=== PATIENT | male | born 1940 | race Caucasian/White ===

== ENCOUNTER 2017-01-16 11:34 | Outpatient (CLI) ==
[2016-09-04 16:41] VITALS: BMI 32.3
--- NOTE | 2017-01-16 12:43 | DI ---
EXAM: Three views of the left ankle. History: Left ankle pain. Findings / impression: No acute fracture or dislocation. Diffuse subcutaneous edema. Mild polyart icular joint space narrowing.
--- NOTE | 2017-01-16 12:53 | DI ---
EXAM: Lumbar spine five views HISTORY: Back pain COMPARISON: None TECHNIQUE: Five views lumbar spine were performed including oblique views FINDINGS: Sacroiliac joints intact. Sacral arcuate lines intact. Vertebral bodies normal in heigh t. No fracture. No subluxation. Multilevel bulky marginal osteophyte formation. Multilevel inter vertebral disc space narrowing with moderate to severe intervertebral disc space narrowing L4-L5 and moderate intervertebral disc space narrowing L5-S1. Multilevel facet arthrosis appears advanced in the lower spine. Atherosclerotic vascular calcification. 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
== END 2017-01-16 11:35 | disposition home or self-care (01) ==
LOC: RAD 11:34
PROVIDERS: ATTEND Internal Medicine
DX: M25.572 Pain in left ankle and joints of left foot (principal); M54.9 Dorsalgia, unspecified

== ENCOUNTER 2017-03-15 10:11 | Inpatient (IN) | payer OTHER ==
[2017-03-15] MEDS ORDERED: MORPHINE 4 MG/ML SYRINGE IVP PRN (10:32)
[2017-03-15] MEDS ORDERED: ATROPINE SULFATE PFS IVP PRN (10:32)
[2017-03-15] MEDS ORDERED: VISTARIL INJ IM PRN (10:32)
[2017-03-15] MEDS ORDERED: TYLENOL PO PRN (10:32)
[2017-03-15] MEDS ORDERED: NITROSTAT SL PRN (10:32)
[2017-03-15 10:38] LABS: ABG BASE EXCESS -8 (-2.0-2.0); ABG HCO3 17.5 (22.0-26.0); ABG PCO2 30.1 mmHg (35-45); ABG PH 7.372 (7.35-7.45); ABG TCO2 18 (22.0-28.0)
[2017-03-15] MEDS ORDERED: DUONEB NEB STA (10:38)
[2017-03-15] MEDS ORDERED: DUONEB NEB ONE (10:42)
[2017-03-15] MEDS: SOLU-MEDROL 125 MG IVP SCH ×2 (11:00→21:26)
[2017-03-15 11:04] VITALS: BMI 31.2
[2017-03-15 11:09] LABS: BASOPHILS % (AUTO) 0.3 % (0.0-3.0); HEMATOCRIT 50.8 % (42.0-52.0); HEMOGLOBIN 17.5 g/dl (14.0-18.0); IMMATURE GRANULOCYTE % (AUTO) 0.4 % (0.0-5.0); LYMPHOCYTES # (AUTO) 1.2 K/uL (0.60-3.4); LYMPHOCYTES % (AUTO) 13.1 (10.0-50.0); MEAN CORPUSCULAR HEMOGLOBIN 30.7 pg (27.0-31.0); MEAN CORPUSCULAR HGB CONC 34.4 (31.8-35.4); MEAN CORPUSCULAR VOLUME 89.1 fl (80.0-94.0); MONOCYTES # (AUTO) 0.5 K/uL (0.4-2.0); MONOCYTES % (AUTO) 5.8 (0-10); NEUTROPHILS # (AUTO) 7.4 K/ul (2.0-6.9); NEUTROPHILS % (AUTO) 80.4; PLATELET COUNT 90 10^3/uL (140-440); WHITE BLOOD COUNT 9.26 K/ul (4.2-10.2)
[2017-03-15] MEDS: SODIUM CHLORIDE 1,000 ML IV SCH (11:11)
[2017-03-15] MEDS: ROCEPHIN 1 GM in SODIUM CHLORIDE 50 ML IV SCH (11:12)
[2017-03-15] MEDS ORDERED: DUONEB NEB SCH (12:00)
[2017-03-15 12:05] LABS: ALBUMIN 3.3 g/dL (3.4-5.0); ALBUMIN/GLOBULIN RATIO 0.77; BILIRUBIN,TOTAL 0.76 mg/dL (0.00-1.20); BUN/CREATININE RATIO 28.7; CALCIUM 9.1 mg/dL (8.2-10.2); CREATININE 2.16 mg/dL (0.60-1.10); TOTAL PROTEIN 7.6 g/dL (5.8-8.1); TROPONIN I 0.099 ng/ml (0.0000-0.4000)
[2017-03-15 12:11] LABS: CREATINE KINASE MB 7.1 ng/ml (0.0-3.6)
--- NOTE | 2017-03-15 13:19 | DI ---
Exam: Chest one-view HISTORY: Short of breath. Comparison: 09/05/2016. FINDINGS: Portable image of the chest demonstrates mildly hyper expanded lungs with no evidence of pneumonia or edema. The heart and mediastinum appear within normal limits. The skeletal structures appear intact. IMPRESSION: No acute cardiopulmonary disease.
[2017-03-15] MEDS ORDERED: COREG ONE (14:13)
[2017-03-15] MEDS: DUONEB NEB SCH ×2 (14:16→20:24)
[2017-03-15] MEDS: COREG PO SCH ×2 (14:51→18:39)
[2017-03-15] MEDS: MEVACOR PO SCH (18:37)
[2017-03-15 19:34] LABS: TROPONIN I 0.055 ng/ml (0.0000-0.4000)
[2017-03-15 19:38] LABS: CREATINE KINASE MB 6.3 ng/ml (0.0-3.6)
[2017-03-16 03:43] LABS: ADD URINE MICROSCOPIC YES; BILIRUBIN,URINE Negative (NEGATIVE); KETONES,URINE Negative (NEGATIVE); LEUKOCYTE ESTERASE ,URINE Negative (NEGATIVE); NITRITE,URINE Negative (NEGATIVE); PH,URINE 5.5 (5-9); PROTEIN,URINE 3+ (NEGATIVE); URINE, BLOOD 3+ (NEGATIVE)
[2017-03-16] MEDS: DUONEB NEB SCH ×4 (05:08→20:34)
[2017-03-16 05:18] LABS: ALBUMIN 2.7 g/dL (3.4-5.0); ALBUMIN/GLOBULIN RATIO 0.68; ANION GAP 17.6; BILIRUBIN,TOTAL 0.52 mg/dL (0.00-1.20); CALCIUM 8.4 mg/dL (8.2-10.2); CREATININE 1.52 mg/dL (0.60-1.10); POTASSIUM 4.6 mmol/L (3.5-5.1); TOTAL PROTEIN 6.7 g/dL (5.8-8.1)
[2017-03-16 05:19] LABS: BUN/CREATININE RATIO 38.81
[2017-03-16 05:52] LABS: BASOPHILS % (AUTO) 0.2 % (0.0-3.0); HEMATOCRIT 45.9 % (42.0-52.0); HEMOGLOBIN 15.9 g/dl (14.0-18.0); IMMATURE GRANULOCYTE % (AUTO) 0.8 % (0.0-5.0); LYMPHOCYTES # (AUTO) 0.7 K/uL (0.60-3.4); LYMPHOCYTES % (AUTO) 13.8 (10.0-50.0); MEAN CORPUSCULAR HEMOGLOBIN 30.8 pg (27.0-31.0); MEAN CORPUSCULAR HGB CONC 34.6 (31.8-35.4); MONOCYTES # (AUTO) 0.1 K/uL (0.4-2.0); MONOCYTES % (AUTO) 2.7 (0-10); NEUTROPHILS # (AUTO) 3.9 K/ul (2.0-6.9); NEUTROPHILS % (AUTO) 82.5; RED BLOOD COUNT 5.16 10^6/ul (4.70-6.10); WHITE BLOOD COUNT 4.78 K/ul (4.2-10.2)
[2017-03-16 06:12] LABS: PLATELET COUNT 55 10^3/uL (140-440)
[2017-03-16] MEDS: SODIUM CHLORIDE 1,000 ML IV SCH (06:14)
[2017-03-16] MEDS: COREG PO SCH ×2 (08:00→16:52)
[2017-03-16] MEDS: ASPIRIN EC PO SCH (08:00)
[2017-03-16] MEDS: ROCEPHIN 1 GM in SODIUM CHLORIDE 50 ML IV SCH (08:03)
[2017-03-16] MEDS: SOLU-MEDROL 125 MG IVP SCH ×2 (08:27→21:18)
--- NOTE | 2017-03-16 09:53 | PCM.PROG ---
Attending Provider: ATTENDING PROVIDER: Dr. PERLA URIBE DATE OF SERVICE: 03/16/17 SUBJECTIVE: This 76 year old WHITE/ M was hospitalized 03/15/17. respiratory distress, COPD exacerbation. Chest x-ray is negative. The patient was found to have acute on chronic renal failure and dehydration. On further questioning the patient hasn't been taking medication for couple of months; says he can't afford it. REVIEW OF SYSTEMS: CONSTITUTIONAL: No night sweats. No fatigue, malaise, lethargy. No fever or chills. HEENT: Eyes: No visual changes. No eye pain. No eye discharge. ENT: No runny nose. No epistaxis. No sinus pain. No odynophagia. No congestion. RESPIRATORY: No cough, no congestion. No hemoptysis. CARDIOVASCULAR: No angina symptoms. No CHF symptoms. No atypical chest pain for CAD. No palpitations. No shortness of breath. Breathing is better and less short of breath. GASTROINTESTINAL: No abdominal pain. No nausea or vomiting. No diarrhea or constipation. No hematemesis. No hematochezia. GENITOURINARY: No urgency. No frequency. No dysuria. No hematuria. No obstructive symptoms. No discharge. No pain. No significant abnormal bleeding. MUSCULOSKELETAL: No musculoskeletal pain; no joint swelling. NEUROLOGICAL: Awake, alert, oriented to time, place and person. No headache. No neck pain. No syncope. No seizures. No dizziness. PSYCHIATRIC: Not anxious. No depression. No suicidal thoughts. No homicidal thoughts. SKIN: No rash. No lesions. ENDOCRINE: No unexplained weight loss. No weight gain. HEMATOLOGIC/LYMPHATIC: No anemia. No purpura. No petechiae. No prolonged or excessive bleeding. No palpable lymph nodes. PHYSICAL EXAMINATION: GENERAL: The patient is awake, alert and oriented to time, place and person, sitting in bed in no distress. VITAL SIGNS: Temperature 97.5 F, Pulse 64, Respiratory Rate 18, BP 118/62, Pulse Ox 93% HEENT: Head normocephalic, atraumatic. Eyes: Extraocular muscles are intact. Pupils are equal, round and reactive to light and accommodation. Ears: No lesions. Nose appeared normal. Throat: No exudate or erythema. NECK: Supple. No JVD, no carotid bruit. No lymphadenopathy or thyromegaly. LUNGS: Decreased but clear to auscultation. Percussion note normal. Chest symmetrical. HEART: S1, S2, no S3. No murmurs. No cyanosis or clubbing. No ascites. Pulses: Dorsalis pedis and posterior tibial pulses +1 to +2 both sides. ABDOMEN: Soft. Non-tender. Bowel sounds active. No CVA tenderness. No mass felt. EXTREMITIES: Both lower braxton area has some superficial cellulitis from chronic dermatitis. Ulcer on right lower braxton red and healing. Full range of motion of all extremities, equal. NEUROLOGIC: No focal deficit. Cranial nerves II through XII are grossly intact. No headache, no double vision or headache. SKIN: Not dry. Intact. Turgor-normal. LYMPHATIC: No palpable lymph nodes/no lymphedema. MUSCULOSKELETAL: Normal joints with no swelling. Muscle tone is normal. LAB REVIEW: 03/16/17 04:35 03/16/17 04:35 03/16/17 04:35: WBC 4.78, RBC 5.16, Hgb 15.9, Hct 45.9, MCV 89.0, MCH 30.8, MCHC 34.6, RDW Coeff of Bill 13.4, Plt Count 55 L D, Immature Gran % (Auto) 0.8, Neut % (Auto) 82.5, Lymph % (Auto) 13.8, King % (Auto) 2.7, Eos % (Auto) 0.0, Baso % (Auto) 0.2, Immature Gran # (Auto) 0.0, Neut # 3.9, Lymph # 0.7, King # 0.1 L, Eos # 0.0, Baso # 0.0, Sodium 136, Potassium 4.6, Chloride 105, Carbon Dioxide 18 L, Anion Gap 17.6, BUN 59 H, Creatinine 1.52 H D, Estimated GFR (MDRD ) 45.00, BUN/Creatinine Ratio 38.81, Glucose 169 H, Calcium 8.4, Total Bilirubin 0.52, AST 80 H, ALT 42, Alkaline Phosphatase 68, Total Protein 6.7, Albumin 2.7 L, Globulin 4.0, Albumin/Globulin Ratio 0.68 03/15/17 18:40: Total Creatine Kinase 994, CK-MB (CK-2) 6.3 H*, CK-MB (CK-2) % 0.85464, Myoglobin 574, Troponin I 0.0550 03/15/17 10:58: WBC 9.26, RBC 5.70, Hgb 17.5, Hct 50.8, MCV 89.1, MCH 30.7, MCHC 34.4, RDW Coeff of Bill 13.6, Plt Count 90 L, Immature Gran % (Auto) 0.4, Neut % (Auto) 80.4, Lymph % (Auto) 13.1, King % (Auto) 5.8, Eos % (Auto) 0.0, Baso % (Auto) 0.3, Immature Gran # (Auto) 0.0, Neut # 7.4 H, Lymph # 1.2, King # 0.5, Eos # 0.0, Baso # 0.0, Lactic Acid 21.3 H, B-Natriuretic Peptide 29 03/15/17 10:55: Sodium 137, Potassium 4.0, Chloride 99, Carbon Dioxide 23, Anion Gap 19.0, BUN 62 H*, Creatinine 2.16 H, Estimated GFR (MDRD) 30.00, BUN/ Creatinine Ratio 28.70, Glucose 124 H, Calcium 9.1, Total Bilirubin 0.76, AST 102 H, ALT 49, Alkaline Phosphatase 80, Total Creatine Kinase 1302, CK-MB (CK-2 ) 7.1 H*, CK-MB (CK-2) % 0.97799, Myoglobin 723, Troponin I 0.0990, Total Protein 7.6, Albumin 3.3 L, Globulin 4.3, Albumin/Globulin Ratio 0.77, Procalcitonin 4.33 03/15/17 10:35: Puncture Site R rad, O2 Saturation 93.0 L, ABG pH 7.372, ABG pCO2 30.1 L, ABG pO2 66.0 L, ABG HCO3 17.5 L, ABG Total CO2 18 L, ABG Base Excess -8 L, Javi Test +, FiO2 % 21.0 03/15/17 02:30: Urine Color Yellow, Urine Clarity Clear, Urine pH 5.5, Ur Specific [place] >=1.030, Urine Protein 3+, Urine Glucose (UA) Negative, Urine Ketones Negative, Urine Blood 3+, Urine Nitrite Negative, Urine Bilirubin Negative, Urine Urobilinogen 0.2, Ur Leukocyte Esterase Negative, Urine Microscopic RBC 5-10, Ur Squamous Epith Cells Not present, Hyaline Casts 0-2, Urine Mucus 2+ ASSESSMENT: 1. COPD exacerbation secondary to bronchitis 2. Hypoxic secondary to #1 3. Acute on chronic renal failure 4. Hypertension 5. Bilateral lower superficial cellulitis PLAN: 1. NON-COMPLIANT 2. Continue Rocephin 3. Continue Solu-Medrol 4. DUO NEBS 5. IV fluid at 50 ml per hour 6. Out of bed to chair activity as much as possible Plan and coordination of the patient's care discussed in the presence of Hostess Cashier and nurse. CONDITION: Stable SCRIBED BY: BESSY TRAN Founder / Ceo scribed while in presence of service performed by Dr. PERLA URIBE on 03/16/17 ([id number])
--- NOTE | 2017-03-16 14:37 | HP ---
DATE OF SERVICE: 03/15/17 REASON FOR HOSPITALIZATION/HISTORY OF PRESENT ILLNESS: Cough/congestion, getting sputum with fever for couple of days. Headaches and sinus drainage. Shortness of breath getting worse-even short of breath at rest now. He is not taking Symbicort. REVIEW OF SYSTEMS: CONSTITUTIONAL: No fever, no fatigue. HEENT: Sinus drainage, no sore throat. RESPIRATORY: Cough, no congestion. CARDIOVASCULAR: No atypical chest pain for coronary artery disease. No angina , CHF symptoms, palpitations. Shortness of breath. GASTROINTESTINAL: No melena or abdominal pain. No GERD. GENITOURINARY: No hematuria, no prostatism, no polyuria. SHOE TREER: No blackout, no dizziness, no headache, no double vision. MUSCULOSKELETAL: Osteoarthritis pain, no joint swelling. ENDOCRINE: No weight loss, no weight gain. SKIN: Not dry, no rash. PSYCHIATRIC: Anxious, no depression, no suicidal thoughts, no homicidal thoughts. SOCIAL HISTORY: Marital Status: Lives with spouse. Alcohol Usage: No. Tobacco Usage: No. Father ; stomach cancer, Mother ; dementia MEDICATIONS: Carvedilol 25mg PO daily with food Lovastatin 20mg PO daily with evening meal Lisinopril 20mg PO daily Symbicort 160-4.5mcg inhale two puffs by inhalation two times per day in the morning and evening. ALLERGIES: Tramadol PAST SURGICAL HISTORY: Cholecystectomy Right knee replacement PHYSICAL EXAMINATION: V/S: Pulse 94, blood pressure 100/58, temperature 99 and pulse ox 91% GENERAL APPEARANCE: Oriented times three. HEENT: Normal. Dry Mucosa. NECK: No JVP, no bruits. RESPIRATORY: Decreased entry right basilar crackles. CARDIOVASCULAR: S1, S2, no S3, no murmurs. No cyanosis, clubbing. No ascites. GI/ABDOMEN: No tenderness. Bowel sounds are active. EXTREMITIES: edema, pulses +1, equal. SHOE TREER: Deep tendon reflexes, sensory, motor and gait all normal. RECTAL: 2009 Dr. Dunne /PROSTATE: 03-15(0.5) ASSESSMENT: 1. Shortness of breath- rule out pneumonia 2. Carotid stenosis 3. Hypertension LVH 4. Generalized anxiety disorder 5. Neuropathy 6. COPD/asthma 7. Dyslipidemia 8. Osteoarthritis 9. 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 Admit to regular floor with telemetry protocol 2. CBC and CMP daily 3. Lactic acid/ Procalcitonin 4. Sputum culture/Blood culture 5. BNP 6. ABG on room air 7. DUO NEBS four times a day 8. IV fluid normal saline at 50ml per hour 9. Rocephin 1 gram daily 10. Solu-Medrol 80 Q 8 hours IVP 11. Continue home medications 12. Hold Blood pressure medications. TIME SPENT: More than 70 minutes. TONIE
--- NOTE | 2017-03-16 16:34 | CT ---
EXAM: CT of the head without contrast History: Headache and confusion. Comparison: None available. Technique: Multiplanar CT images through the head were obtained without the administration of IV co ntrast Findings: The visualized paranasal sinuses and mastoid air cells are clear in general. No acute ca lvarial abnormalities. Intracranially the ventricular and cisternal spaces are normal in size, shape and configuration for a patient of this age. No dominant mass or midline shift. No hydrocephalous. No acute intracrania l hemorrhage or abnormal extraaxial fluid collections. Impression: No acute intracranial process.
[2017-03-16] MEDS: MEVACOR PO SCH (16:52)
[2017-03-17] MEDS: DUONEB NEB SCH ×4 (05:52→20:55)
[2017-03-17 06:08] LABS: BASOPHILS % (AUTO) 0.2 % (0.0-3.0); HEMATOCRIT 44.3 % (42.0-52.0); HEMOGLOBIN 15.6 g/dl (14.0-18.0); IMMATURE GRANULOCYTE % (AUTO) 0.3 % (0.0-5.0); LYMPHOCYTES # (AUTO) 0.7 K/uL (0.60-3.4); LYMPHOCYTES % (AUTO) 12.2 (10.0-50.0); MEAN CORPUSCULAR HEMOGLOBIN 31.1 pg (27.0-31.0); MEAN CORPUSCULAR HGB CONC 35.2 (31.8-35.4); MEAN CORPUSCULAR VOLUME 88.2 fl (80.0-94.0); MONOCYTES # (AUTO) 0.3 K/uL (0.4-2.0); MONOCYTES % (AUTO) 4.1 (0-10); NEUTROPHILS # (AUTO) 5.1 K/ul (2.0-6.9); NEUTROPHILS % (AUTO) 83.2; PLATELET COUNT 66 10^3/uL (140-440); RED BLOOD COUNT 5.02 10^6/ul (4.70-6.10); WHITE BLOOD COUNT 6.09 K/ul (4.2-10.2)
[2017-03-17] MEDS: SODIUM CHLORIDE 1,000 ML IV SCH ×2 (06:29→22:30)
[2017-03-17 06:33] LABS: ALBUMIN 2.6 g/dL (3.4-5.0); ALBUMIN/GLOBULIN RATIO 0.68; ANION GAP 12.9; BILIRUBIN,TOTAL 0.46 mg/dL (0.00-1.20); BUN/CREATININE RATIO 47.2; CALCIUM 8.4 mg/dL (8.2-10.2); CREATININE 1.25 mg/dL (0.60-1.10); POTASSIUM 3.9 mmol/L (3.5-5.1); TOTAL PROTEIN 6.4 g/dL (5.8-8.1)
[2017-03-17] MEDS: ROCEPHIN 1 GM in SODIUM CHLORIDE 50 ML IV SCH (08:13)
[2017-03-17] MEDS: COREG PO SCH ×2 (08:13→17:08)
[2017-03-17] MEDS: ASPIRIN EC PO SCH (08:13)
[2017-03-17] MEDS: SOLU-MEDROL 125 MG IVP SCH (08:14)
[2017-03-17] MEDS ORDERED: MEDROL DOSEPAK PO SCH (16:00)
[2017-03-17] MEDS: MEVACOR PO SCH (17:08)
[2017-03-17] MEDS: KEFLEX PO SCH (20:15)
[2017-03-18] MEDS: SODIUM CHLORIDE 1,000 ML IV SCH (02:52)
[2017-03-18 04:26] LABS: BASOPHILS % (AUTO) 0.2 % (0.0-3.0); HEMATOCRIT 39.7 % (42.0-52.0); IMMATURE GRANULOCYTE % (AUTO) 0.3 % (0.0-5.0); LYMPHOCYTES # (AUTO) 0.5 K/uL (0.60-3.4); LYMPHOCYTES % (AUTO) 8.8 (10.0-50.0); MEAN CORPUSCULAR HEMOGLOBIN 31.1 pg (27.0-31.0); MEAN CORPUSCULAR HGB CONC 35.3 (31.8-35.4); MEAN CORPUSCULAR VOLUME 88.2 fl (80.0-94.0); MONOCYTES # (AUTO) 0.3 K/uL (0.4-2.0); MONOCYTES % (AUTO) 4.5 (0-10); NEUTROPHILS % (AUTO) 86.2; PLATELET COUNT 65 10^3/uL (140-440); WHITE BLOOD COUNT 5.82 K/ul (4.2-10.2)
[2017-03-18 04:44] LABS: ALBUMIN 2.3 g/dL (3.4-5.0); ALBUMIN/GLOBULIN RATIO 0.7; ANION GAP 12.2; BILIRUBIN,TOTAL 0.44 mg/dL (0.00-1.20); BUN/CREATININE RATIO 41.9; CALCIUM 7.9 mg/dL (8.2-10.2); CREATININE 1.05 mg/dL (0.60-1.10); POTASSIUM 4.2 mmol/L (3.5-5.1); TOTAL PROTEIN 5.6 g/dL (5.8-8.1)
[2017-03-18] MEDS: DUONEB NEB SCH ×4 (05:11→20:25)
[2017-03-18] MEDS: KEFLEX PO SCH ×2 (08:24→20:36)
[2017-03-18] MEDS: COREG PO SCH ×2 (08:24→17:53)
[2017-03-18] MEDS: ASPIRIN EC PO SCH (08:24)
[2017-03-18] MEDS ORDERED: MEDROL DOSEPAK PO SCH ×3 (08:38→13:00)
[2017-03-18] MEDS: MEDROL DOSEPAK PO SCH ×2 (12:57→17:50)
[2017-03-18] MEDS ORDERED: COREG ONE (17:48)
[2017-03-18] MEDS: MEVACOR PO SCH (17:50)
[2017-03-18 17:56] VITALS: BP 139/89; TEMP 97.2
[2017-03-18] MEDS ORDERED: NON-FORMULARY MEDICATION (Nitroglycerin [Nitrostat] 0.4 MG) SL PRN ×22 (19:55)
[2017-03-18] MEDS ORDERED: SYMBICORT 80-4.5 MCG INHALER IH SCH (20:00)
[2017-03-18] MEDS ORDERED: SYMBICORT 160-4.5 MCG INHALER IH ONE (20:31)
[2017-03-18] MEDS ORDERED: PROAIR HFA IH ONE (20:46)
[2017-03-18] MEDS ORDERED: PROAIR HFA IH SCH (21:00)
[2017-03-19] MEDS ORDERED: NON-FORMULARY MEDICATION (Lisinopril [Lisinopril] 20 MG) PO SCH ×22 (09:00)
[2017-03-19] MEDS ORDERED: NON-FORMULARY MEDICATION (Carvedilol [Coreg] 25 MG) PO SCH ×22 (09:00)
--- NOTE | 2017-03-27 10:52 | PN ---
DATE OF SERVICE: 03/17/17 SUBJECTIVE: The patient was admitted with the COPD exacerbation and bronchitis. He says that he is feeling better but still gets short of breath with minimal exertion. REVIEW OF SYSTEMS: CONSTITUTIONAL: No fever, no chills. HEENT: Normal. ENDOCRINE: No weight gain, no weight loss. CVS: No angina symptoms. No CHF symptoms. No palpitations. No atypical chest pain for CAD. No shortness of breath. No PND, no orthopnea. RESPIRATORY: No cough, no hemoptysis. GI: No nausea, no vomiting. No abdominal pain. : No hematuria. No polyuria. MUSCULOSKELETAL:. No joint swelling. PSYCHIATRIC: Not anxious. No depression. No suicidal thoughts. No homicidal thoughts. Confusion episodes while the patient was at home. CT of the head was done which was negative for any stroke. SKIN: Intact. No rash. PHYSICAL EXAMINATION: V/S: blood pressure 124/68, respiratory 20, heart rate 62, temperature 97.8. HEENT: Normocephalic, atraumatic. Mucosa dry. NECK: Supple. No JVD, no carotid bruit. No lymphadenopathy. LUNGS: Decreased and clear to auscultation. No rales or rhonchi. HEART: S1, S2 normal. No S3. No murmur, gallop or regurgitation. ABDOMEN: Soft, nontender. Bowel sounds active. No rigidity. No rebound or guarding. No CVA tenderness. EXTREMITIES: No clubbing, cyanosis or pedal edema. MUSCULOSKELETAL: No joint swelling. NEUROLOGIC: Awake, alert, oriented times three. No focal deficit. LYMPHATIC: No lymph nodes palpable. SKIN: Intact. LABS: WBC 6.09, hgb 15.6, hct 44.3, plt count 66, sodium 138, potassium 3.9, chloride 106, bicarb 23, BUN 59 and creatine 1.25. ASSESSMENT: 1. 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 Hypoxemia secondary to the acute bronchitis 3. Hypertension 4. Dyslipidemia 5. Non-compliance 6. Thrombocytopenia most likely from the medications 7. Acute on chronic renal failure PLAN: 1. Continue the Rocephin 2. Continue IV fluids 3. I&O's 4. DUO NEBS Will follow the patient in daily rounds. TIME SPENT: More than 30 minutes MTDD
--- NOTE | 2017-03-29 10:02 | PN ---
DATE OF SERVICE: 03/18/17 SUBJECTIVE: The patient was admitted with COPD exacerbation and bronchitis. He says that he is feeling better. He is up and about and not having any shortness of breath and not coughing and says he is ready to go home. REVIEW OF SYSTEMS: CONSTITUTIONAL: No fever, no chills. HEENT: Normal. ENDOCRINE: No weight gain, no weight loss. CVS: No angina symptoms. No CHF symptoms. No palpitations. No atypical chest pain for CAD. No shortness of breath. No PND, no orthopnea. RESPIRATORY: No cough, no hemoptysis. GI: No nausea, no vomiting. No abdominal pain. : No hematuria. No polyuria. MUSCULOSKELETAL:. No joint swelling. PSYCHIATRIC: Not anxious. No depression. No suicidal thoughts. No homicidal thoughts. SKIN: Intact. No rash. PHYSICAL EXAMINATION: V/S: Blood pressure 139/89, respiratory rate 18, heart rate 68, temperature 97.2. HEENT: Normocephalic, atraumatic. Mucosa dry. NECK: Supple. No JVD, no carotid bruit. No lymphadenopathy. LUNGS: Clear to auscultation. No rales or rhonchi. HEART: S1, S2 normal. No S3. No murmur, gallop or regurgitation. ABDOMEN: Soft, nontender. Bowel sounds active. No rigidity. No rebound or guarding. No CVA tenderness. EXTREMITIES: No clubbing, cyanosis or pedal edema. MUSCULOSKELETAL: No joint swelling. NEUROLOGIC: Awake, alert, oriented times three. No focal deficit. LYMPHATIC: No lymph nodes palpable. SKIN: Intact. LABS: White count is 8.52, hemoglobin 14.0, hematocrit 39.7, platelet count is 65. Sodium 140, potassium 4.2, chloride 110, bicarb 22, BUN 44, creatinine 1.05. ASSESSMENT: 1. COPD EXACERBATION SECONDARY TO BRONCHITIS 2. HYPOXEMIA 3. CHRONIC LEG WOUNDS 4. HYPERTENSION 5. DYSLIPIDEMIA 6. NONCOMPLIANCE PLAN: 1. Discharge the patient home. 2. The patient was started on Symbicort and we will send the medication with him. Medrol dose pack was also sent. 3. He was given a script for Keflex 500 mg twice a day for 7 more days, which is a $4.00 script. 4. Coreg 12.5 mg twice a day, which is also $4.00 with [facility]. 5. He will be followed in the office within four to five days. TIME SPENT: More than 30 minutes TONIE
--- NOTE | 2017-03-29 11:12 | DS ---
DATE OF SERVICE: 03/18/17 FINAL DIAGNOSIS: 1. CHRONIC OBSTRUCTIVE PULMONARY DISEASE EXACERBATION SECONDARY TO BRONCHITIS 2. HYPOXEMIA 3. HYPERTENSION 4. DYSLIPIDEMIA 5. THROMBOCYTOPENIA 6. CHRONIC DERMATITIS ON THE SHINS, WHICH IS BEING TREATED BY DR. LEON FOR YEARS PLAN: 1. Discharge the patient home. 2. New medications: Keflex 500 mg twice a day #10. Albuterol HFA two puffs every 4 to 6 hours prn. 3. Continue Symbicort and Coreg. 4. Lifestyle modifications of weight loss, diet control, medication compliance was discussed with the patient in detail. 5. Follow up in the office within 4-5 days. DISEASE SPECIFIC EDUCATION: Carried out about the COPD, hypoxemia and discussed pneumonia and the importance of the pneumonia vaccination was discussed in detail. HOSPITAL COURSE: Lyndon Smith, who was initially seen in the office, came with cough, congestion, shortness of breath and found to be hypoxic. At that time the patient was admitted to the hospital. ABG showed the pH at 7.372, PCO2 30.1 , PO2 66.0. Chest x-ray was negative, so the patient was thought to be in COPD exacerbation secondary to the bronchitis. BUN was 62, creatinine 2.16 with acute on chronic renal failure. Lactid acid was 21.3. He was started on IV fluids, Solu-Medrol every 8 hours, DuoNebs and the Rocephin. With the given treatment, the patient gradually was feeling better and on admission he did tell that he did have some confusion episode yesterday where he was in his driveway. He didn't know how to get out of the driveway, but he was walking fine, no slurring speech and no weakness. In view of his age, we did do a CT scan of his head, which did not show any stroke. Gradually, BUN and creatinine was getting better. Shortness of breath was getting improved. He did not have any problems. As the patient was doing fine and did not have any problems, the patient was discharged today. Time spent on the patient is more than 55 minutes today. [facility]
--- NOTE | 2017-03-29 11:14 | PN ---
03/15/17 Extensive 03/16/17 Intermediate 03/17/17 Brief 03/18/17 Discharge MTDD
== END 2017-03-18 20:49 | disposition home or self-care (01) | DRG 191 ==
LOC: MEDSURG B 10:11
PROVIDERS: ADMIT Emergency Medicine; ATTEND Emergency Medicine
DX: J44.1 Chronic obstructive pulmonary disease with (acute) exacerbation (principal); N17.9 Acute kidney failure, unspecified; J20.9 Acute bronchitis, unspecified; J44.0 Chronic obstructive pulmonary disease with (acute) lower respiratory infection; R06.02 Shortness of breath; R09.02 Hypoxemia; I10 Essential (primary) hypertension; E78.5 Hyperlipidemia, unspecified; D69.6 Thrombocytopenia, unspecified; L30.8 Other specified dermatitis; N18.9 Chronic kidney disease, unspecified; E86.0 Dehydration; R41.0 Disorientation, unspecified; Z91.120 Patient's intentional underdosing of medication regimen due to financial hardship; Z79.899 Other long term (current) drug therapy
CPT/HCPCS: 36415; 80053; 81001; 82550; 82553; 82803; 83605; 83874; 83880; 84145; 84484; 85025; 87040; 87070; 87186; 93005; 93010; 94640

== ENCOUNTER 2017-03-20 13:55 | Emergency (ER) | payer OTHER ==
[2017-03-20 14:04] VITALS: BP 156/103; TEMP 98.4; BMI 32.5
[2017-03-20] MEDS ORDERED: DUONEB NEB STA (15:05)
[2017-03-20 15:25] LABS: ABG BASE EXCESS 2 (-2.0-2.0); ABG HCO3 25.6 (22.0-26.0); ABG PCO2 37.1 mmHg (35-45); ABG PH 7.447 (7.35-7.45)
[2017-03-20 15:26] LABS: ABG TCO2 27 (22.0-28.0)
[2017-03-20 15:35] LABS: BASOPHILS % (AUTO) 0.2 % (0.0-3.0); EOSINOPHILS % (AUTO) 0.2 % (0.0-7.0); HEMATOCRIT 41.1 % (42.0-52.0); HEMOGLOBIN 14.4 g/dl (14.0-18.0); IMMATURE GRANULOCYTE % (AUTO) 0.5 % (0.0-5.0); LYMPHOCYTES # (AUTO) 0.5 K/uL (0.60-3.4); LYMPHOCYTES % (AUTO) 7.6 (10.0-50.0); MEAN CORPUSCULAR HEMOGLOBIN 31.1 pg (27.0-31.0); MEAN CORPUSCULAR VOLUME 88.8 fl (80.0-94.0); MONOCYTES # (AUTO) 0.6 K/uL (0.4-2.0); MONOCYTES % (AUTO) 9.5 (0-10); NEUTROPHILS # (AUTO) 4.9 K/ul (2.0-6.9); PLATELET COUNT 100 10^3/uL (140-440); RED BLOOD COUNT 4.63 10^6/ul (4.70-6.10); WHITE BLOOD COUNT 5.92 K/ul (4.2-10.2)
[2017-03-20 16:14] LABS: ALANINE AMINOTRANSFERASE 44 U/L (12-78); ALBUMIN 2.5 g/dL (3.4-5.0); ALBUMIN/GLOBULIN RATIO 0.74; ALKALINE PHOSPHATASE 70 U/L (56-119); ANION GAP 10.2; ASPARTATE AMINO TRANSFERASE 44 U/L (15-37); BILIRUBIN,TOTAL 0.57 mg/dL (0.00-1.20); BLOOD UREA NITROGEN 27 mg/dL (7-18); BUN/CREATININE RATIO 30.33; CALCIUM 8.2 mg/dL (8.2-10.2); CARBON DIOXIDE 25 mmol/L (23-31); CHLORIDE 110 mmol/L (98-107); CREATINE KINASE 121 U/L; CREATININE 0.89 mg/dL (0.60-1.10); GLUCOSE 122 mg/dL (82-115); POTASSIUM 4.2 mmol/L (3.5-5.1); SODIUM 141 mmol/L (136-145); TOTAL PROTEIN 5.9 g/dL (5.8-8.1)
[2017-03-20 16:23] LABS: CREATINE KINASE MB 4.8 ng/ml (0.0-3.6)
--- NOTE | 2017-03-20 16:38 | CT ---
EXAM: CT chest without contrast HISTORY: Cough, shortness of air COMPARISON: 05/23/2016 TECHNIQUE: CT chest performed without intravenous contrast. Coronal and sagittal reformatted image s obtained. FINDINGS: The thyroid and thoracic inlet appear normal. Heart normal in size. Coronary calcificat ions. Aorta normal in caliber. There is mild atherosclerosis. Small hiatal hernia. Evaluation fo r lymphadenopathy limited without contrast. No lymphadenopathy identified. Patient status post cho lecystectomy. Large simple-appearing right renal cyst measuring at least 10 cm, though incompletely imaged. There are no acute abnormalities of the bones. Degenerative change in the spine. The luis eduardo dging syndesmophytes throughout the thoracic spine may represent ankylosing spondylitis. The centra l airway patent. No pneumothorax. No pleural effusion. There is mild centrilobular emphysema. St able 3 mm fissural nodule image 26. There is multifocal ground-glass centrilobular nodularity, grea test in the bilateral lower lobes and also seen in the right upper lobe and right middle lobe. Ada lar changes seen in the right lower lobe on prior examination. No focal consolidation. IMPRESSION: 1. Centrilobular ground-glass nodularity, probably representing small airways inflammation/infectio n. 2. Mild emphysema. 3. Stable 3 mm perifissural nodule right lung. 4. Small hiatal hernia. 5. Changes in the spine may represent ankylosing spondylitis.
--- NOTE | 2017-03-20 16:47 | ED.PDOC ---
General ED Provider: Dr. PETRONA FONTANEZ Chief Complaint: Weakness Stated Complaint: weakness , cough Time Seen by Physician: 14:00 Mode of Arrival: Walk-In Information Source: Patient Exam Limitations: No limitations Primary Care Provider: VIBHA GODDARD Nursing and Triage Documentation Reviewed and Agree: Yes Respiratory Complaint Exam - Respiratory Complaint/Exam Onset/Duration: 1 day discharged from hospital last night Symptoms Are: Resolved (grew MRSA IN SPUTUM) Timing: Intermittent Initial Severity: Mild Current Severity: None Location: Chest Character: Reports: Non-productive cough Aggravating: Reports: None Alleviating: Reports: None Associated Signs and Symptoms: Denies: Rapid breathing, Dyspnea, Fever, Chills, Chest pain, Pleuritic chest pain, Wheezing, Hemoptysis, Dizziness, Calf pain, Calf swelling, Edema, URI, Nasal congestion, Hoarseness, Sinus discomfort, Vomiting, Sore throat, Weight loss, Decreased oral intake, Increased thirst, Increased appetite, Increased urination History of Healthcare-Acquired Pneumonia: No Related Surgical History: Reports: None Pulmonary Embolism Risk Factors: None Pseudomonas Risk Factors: Reports: Chronic Lung Disease Review of Systems - Review Of Systems Constitutional: Reports: Malaise, Weakness Eyes: Reports: No symptoms Ears, Nose, Mouth, Throat: Reports: No symptoms Respiratory: Reports: Cough, Short of air Cardiac: Reports: No symptoms GI: Reports: No symptoms : Reports: No symptoms Musculoskeletal: Reports: No symptoms Skin: Reports: No symptoms Neurological: Reports: No symptoms Endocrine: Reports: No symptoms Hematologic/Lymphatic: Reports: No symptoms All Other Systems: Reviewed and Negative Past Medical History - Past Medical History Previously Healthy: No Endocrine: Reports: Dyslipidemia Cardiovascular: Reports: Hypertension Respiratory: Reports: COPD Hematological: Reports: Unknown Gastrointestinal: Reports: None Genitourinary: Reports: None Neuro/Psych: Reports: Unknown Musculoskeletal: Reports: None Cancer: Reports: None - Surgical History General Surgical History: Reports: Unknown - Family History Family History: Reports: Unknown - Social History Smoking Status: Former smoker Hx Substance Use: No Alcohol Screening: None Physical Exam - Physical Exam Appearance: Ill-appearing Ill-appearing: Mild Pain Distress: Mild Eyes: MOLLY, EOMI, Conjunctiva clear ENT: Ears normal, Nose normal, Oropharynx normal Respiratory: Rhonchi Cardiovascular: RRR, Pulses normal, No rub, No murmur GI/: Soft, Nontender, No masses, Bowel sounds normal, No Organomegaly Musculoskeletal: Normal strength, ROM intact, No edema, No calf tenderness Skin: Warm, Dry, Normal color Neurological: Sensation intact, Motor intact, Reflexes intact, Cranial nerves intact, Alert, Oriented Psychiatric: Affect appropriate, Mood appropriate Interpretation - Radiology Interpretation Radiology Interpretation By: Radiologist Radiology Results: No acute changes Re-Evaluation - Re-Evaluation Time of Re-Evaluation: 16:52 (EXAMINED WITH YARITZA AT BEDSIDE ALL LABS AND IMAGING EKG DISCUSSED ) Status: Improved Vital Signs Stable: Yes Pain Level: 0 Appearance: NAD Lungs: Clear Skin: Warm and Dry Neuro: Alert and Oriented X3 CV: RRR Physician Notification - Case Discussed Physician Notified: PMD BEJGUM Time of Notification: 16:49 (PT MAY GO HOME) Critical Care Note - Critical Care Note Total Time (mins): 0 Course - Course Hematology/Chemistry: 03/20/17 15:02 03/20/17 15:30 Orders, Labs, Meds: Lab Review 03/20/17 03/20/17 03/20/17 15:02 15:04 15:30 WBC 5.92 RBC 4.63 L Hgb 14.4 Hct 41.1 L MCV 88.8 MCH 31.1 H MCHC 35.0 RDW Coeff of Bill 13.3 Plt Count 100 L Immature Gran % (Auto) 0.5 Neut % (Auto) 82.0 Lymph % (Auto) 7.6 L Ellis % (Auto) 9.5 Eos % (Auto) 0.2 Baso % (Auto) 0.2 Immature Gran # (Auto) 0.0 Neut # 4.9 Lymph # 0.5 L Ellis # 0.6 Eos # 0.0 Baso # 0.0 Puncture Site Rr O2 Saturation 95.0 ABG pH 7.447 ABG pCO2 37.1 ABG pO2 73.0 L ABG HCO3 25.6 ABG Total CO2 27 ABG Base Excess 2 Javi Test + FiO2 % 21.0 Sodium 141 Potassium 4.2 Chloride 110 H Carbon Dioxide 25 Anion Gap 10.2 BUN 27 H Creatinine 0.89 Estimated GFR (MDRD) 83.00 BUN/Creatinine Ratio 30.33 Glucose 122 H Lactic Acid 13.0 Calcium 8.2 Total Bilirubin 0.57 AST 44 H ALT 44 Alkaline Phosphatase 70 Total Creatine Kinase 121 CK-MB (CK-2) 4.8 H CK-MB (CK-2) % 3.60049 Troponin I < 0.0100 B-Natriuretic Peptide 117 H Total Protein 5.9 Albumin 2.5 L Globulin 3.4 Albumin/Globulin Ratio 0.74 Procalcitonin 0.06 Orders Category Date Time Status ABG DRAW REQUEST Stat CARDIO 03/20/17 15:05 Completed EKG-(ED ONLY) Stat CARDIO 03/20/17 15:04 Completed NEBULIZER TREATMENT Stat CARDIO 03/20/17 15:05 Completed ABG Stat LAB 03/20/17 15:04 Completed B-TYPE NATRIURETIC PEPTIDE Stat LAB 03/20/17 15:30 Completed BLOOD CULTURE Stat LAB 03/20/17 15:30 Received CBC W/ AUTO DIFF Stat LAB 03/20/17 15:02 Completed COMPREHENSIVE METABOLIC PANEL Stat LAB 03/20/17 15:30 Completed CREATINE KINASE Stat LAB 03/20/17 15:30 Completed LACTIC ACID Stat LAB 03/20/17 15:30 Completed PROCALCITONIN Stat LAB 03/20/17 15:30 Completed TROPONIN I Stat LAB 03/20/17 15:30 Completed Ipratropium/Albuterol Neb [Duoneb] MEDS 03/20/17 15:05 Discontinued 1 vial NEB ONCE STA CT CHEST W/O CONTRAST Stat RADS 03/20/17 15:03 Completed Medications Discontinued Medications Generic Name Dose Route Start Last Admin Trade Name Freq PRN Reason Stop Dose Admin Albuterol/Ipratropium 1 vial 03/20/17 15:05 03/20/17 15:35 Duoneb NEB 03/20/17 15:06 1 vial ONCE STA Administration Vital Signs: Temp Pulse Resp BP Pulse Ox 03/20/17 13:56 98.4 F 70 24 156/103 H 92 L Departure - Departure Time of Disposition: 16:48 (YARITZA PRESENT AT REPEAT EXAM ) Disposition: HOME SELF-CARE Discharge Problem: Weakness generalized Instructions: Weakness (ED) Condition: Good Pt referred to PMD for follow-up: No Additional Instructions: Please call your Family Physician as soon as possible to schedule a follow-up appointment. Allergies/Adverse Reactions: Allergies tramadol Allergy (Mild, Verified 03/20/17 14:04) Itching Home Medications: Ambulatory Orders Lisinopril 20 mg PO DAILY 09/04/16 Lovastatin [Mevacor] 20 mg PO QPM 09/04/16 Nitroglycerin [Nitrostat] 0.4 mg SL DIRECTED PRN tab-cap 09/11/16 Albuterol Sulfate [Proventil Hfa] 6.7 gm IH Q6-8H PRN #1 hfa.aer.ad 03/18/17 Aspirin [Aspirin EC] 81 mg PO DAILYWM #1 tablet. 03/18/17 Budesonide/Formoterol Fumarate [Symbicort 80-4.5 Mcg Inhaler] 2 puff IH BID #1 inh 03/18/17 Carvedilol [Coreg] 12.5 mg PO BIDWM #60 tablet 03/18/17 Prednisone 4 mg PO DIRECTED 03/20/17 Sulfamethoxazole/Trimethoprim [Bactrim Ds 800/160 mg] 1 tab PO Q12HR 03/20/17
== END 2017-03-20 17:00 | disposition home or self-care (01) ==
LOC: ED 13:55
DX: R53.1 Weakness (principal); R05 Cough; R06.02 Shortness of breath; J44.9 Chronic obstructive pulmonary disease, unspecified; Z79.899 Other long term (current) drug therapy
CPT/HCPCS: 36415; 80053; 82550; 82553; 82803; 83605; 83880; 84145; 84484; 85025; 87040; 93005; 93010; 94640; 99283

== ENCOUNTER 2018-09-03 11:30 | Outpatient (CLI) | payer OTHER ==
--- NOTE | 2018-09-03 11:58 | DI ---
EXAM: Three views of the right shoulder. History: Right shoulder pain. Findings: No acute fracture or dislocation. Mild narrowing of the right glenohumeral joint. Mild t o moderate narrowing of the right AC joint. There are a few well corticated ossific densities seen i nvolving the superior right AC joint compatible with accessory ossicles or old trauma. There is scle rosis and cystic change within the superior lateral aspect of the humeral head. Impression: 1. No acute osseous abnormality. 2. Arthritis. 3. Probable rotator cuff disease
== END 2018-09-03 11:31 | disposition home or self-care (01) ==
LOC: RAD 11:30
PROVIDERS: ATTEND Internal Medicine
DX: M25.511 Pain in right shoulder (principal)

== ENCOUNTER 2018-12-31 07:37 | Day surgery (SDC) | payer OTHER ==
[2018-12-31] MEDS ORDERED: LIDOCAINE 1% 20 ML MDV ID STA (08:43)
[2018-12-31 08:52] VITALS: TEMP 97.6
[2018-12-31] MEDS ORDERED: DIPRIVAN 20 ML VIAL IVP ONE (10:30)
[2018-12-31] MEDS ORDERED: VERSED ONE (10:30)
[2018-12-31 12:34] VITALS: BP 121/68
--- NOTE | 2019-01-01 10:40 | OP ---
INDICATIONS FOR PROCEDURE: 78 year old gentleman presents for screening colonoscopy. MEDICATIONS: SEE ANESTHESIA NOTES. PROCEDURE: COLONOSCOPY. SNARE POLYPECTOMY. REPORT: The risks, benefits, alternatives and limitations were discussed in detail with the patient. Informed consent was obtained. After adequate sedation was achieved, a digital rectal exam revealed good tone, no masses. The colonoscope was introduced into the rectum and advanced under direct visual guidance to the cecum. The cecum was identified by the appendiceal orifice and IC valve. I then slowly withdrew the scope in circumferential manner and examined the mucosa quite carefully. I looked on the proximal and distal sides of folds and flexure as best as possible. I was able to retroflex the scope in the right colon as well as the left colon to increase visualization. Withdrawing the scope I noted a small 5-6mm sessile polyp in the distal midsigmoid colon area. I removed this polyp by snare technique. No other abnormalities were noted including retroflex view of the anal canal. The prep was good. The withdraw time was 12 minutes and 0 seconds. The patient tolerated the procedure well with stable vital signs and pulse oximetry throughout. IMPRESSION: 1. Small polyp successfully removed RECOMMENDATIONS: 1. High fiber diet 2. Office visit as needed 3. Await polyp pathology results and if it benign as expected and he is clinically well consider a surveillance colonoscopy examination again in 5 years or sooner if signs or symptoms would indicate otherwise. CC: Dr. Cristo SCHILLING
== END 2018-12-31 12:00 | disposition home or self-care (01) ==
LOC: SURG 07:37
PROVIDERS: ATTEND Internal Medicine Gastroenterology
DX: Z80.0 Family history of malignant neoplasm of digestive organs (principal); Z12.11 Encounter for screening for malignant neoplasm of colon; D12.5 Benign neoplasm of sigmoid colon

== ENCOUNTER 2019-10-24 13:45 | Inpatient (IN) ==
[2019-10-24] MEDS ORDERED: ATROPINE SULFATE PFS IVP PRN (14:22)
[2019-10-24] MEDS ORDERED: NITROSTAT SL PRN (14:22)
[2019-10-24] MEDS ORDERED: VISTARIL INJ IM PRN (14:22)
[2019-10-24] MEDS ORDERED: LASIX IVP STA (14:25)
[2019-10-24 15:04] LABS: HEMATOCRIT 44.3 % (42.0-52.0)
--- NOTE | 2019-10-24 15:13 | DI ---
EXAM: Chest one view HISTORY: Shortness of breath COMPARISON: 03/15/2017 TECHNIQUE: Single view of the chest was performed FINDINGS: The lungs are clear. There is no pleural effusion or pneumothorax. The heart is normal i n size. The mediastinal contour is normal. There are no acute abnormalities of the bones. IMPRESSION: No acute cardiopulmonary process.
[2019-10-24 15:14] VITALS: BMI 29.4
[2019-10-24] MEDS ORDERED: XANAX PO PRN (15:41)
[2019-10-24] MEDS ORDERED: SOLU-CORTEF 250 MG ONE (15:59)
[2019-10-24] MEDS ORDERED: FLOMAX PO SCH ×2 (16:00→21:00)
[2019-10-24] MEDS: SOLU-CORTEF 250 MG IVP SCH ×2 (16:10→20:53)
[2019-10-24] MEDS: ROCEPHIN 1 GM/50 ML D5W 1 GM/50 ML BAG IV SCH (16:10)
[2019-10-24] MEDS: TYLENOL PO PRN (16:11)
[2019-10-24] MEDS: DUONEB NEB SCH (19:40)
[2019-10-24] MEDS: SYMBICORT 160-4.5 MCG INHALER IH SCH (20:54)
[2019-10-25] MEDS: SOLU-CORTEF 250 MG IVP SCH ×3 (04:34→21:12)
[2019-10-25] MEDS: DUONEB NEB SCH ×2 (04:36→09:40)
[2019-10-25 05:48] LABS: HEMATOCRIT 48.4 % (42.0-52.0)
[2019-10-25] MEDS ORDERED: ASPIRIN EC PO SCH (08:00)
[2019-10-25] MEDS: LASIX TAB PO SCH (08:14)
[2019-10-25] MEDS: SYMBICORT 160-4.5 MCG INHALER IH SCH ×2 (08:15→21:11)
[2019-10-25] MEDS: TYLENOL PO PRN (08:15)
[2019-10-25] MEDS: ROCEPHIN 1 GM/50 ML D5W 1 GM/50 ML BAG IV SCH (08:16)
[2019-10-25] MEDS: XOPENEX 1.25 MG NEB SCH ×2 (14:04→19:25)
[2019-10-26] MEDS: XOPENEX 1.25 MG NEB SCH ×3 (04:50→19:28)
[2019-10-26] MEDS: SOLU-CORTEF 250 MG IVP SCH ×3 (04:59→21:15)
[2019-10-26 05:20] LABS: HEMATOCRIT 42.9 % (42.0-52.0)
[2019-10-26] MEDS: LASIX TAB PO SCH (08:54)
[2019-10-26] MEDS: SYMBICORT 160-4.5 MCG INHALER IH SCH ×2 (08:55→21:15)
[2019-10-26] MEDS: ROCEPHIN 1 GM/50 ML D5W 1 GM/50 ML BAG IV SCH (08:55)
[2019-10-26] MEDS ORDERED: ASPIRIN EC PO SCH (09:00)
[2019-10-27 05:11] VITALS: BP 112/68; TEMP 98.1
[2019-10-27] MEDS: SOLU-CORTEF 250 MG IVP SCH ×2 (05:14→12:31)
[2019-10-27] MEDS: XOPENEX 1.25 MG NEB SCH (05:33)
[2019-10-27] MEDS: SYMBICORT 160-4.5 MCG INHALER IH SCH (09:12)
[2019-10-27] MEDS: LASIX TAB PO SCH (09:12)
[2019-10-27] MEDS: ROCEPHIN 1 GM/50 ML D5W 1 GM/50 ML BAG IV SCH (09:12)
--- NOTE | 2019-10-27 09:27 | PCM.PROG ---
Attending Provider: ATTENDING PROVIDER: Dr. VIBHA GODDARD This patient is seen with Rajwinder Jackson, Nurse Practitioner. DATE OF SERVICE: 10/27/19 SUBJECTIVE: This 79 year old /WHITE M was hospitalized 10/24/19. The patient is resting comfortably. Shortness of breath significantly improved along with generalized edema. The patient has been up and about and states he is ready to go home. REVIEW OF SYSTEMS: CONSTITUTIONAL: No night sweats. No fatigue, malaise, lethargy. No fever or chills. HEENT: Eyes: No visual changes. No eye pain. No eye discharge. ENT: No runny no se. No epistaxis. No sinus pain. No odynophagia. No congestion. RESPIRATORY: Cough, no congestion. No hemoptysis. No shortness of breath. CARDIOVASCULAR: No angina symptoms. No CHF symptoms. No atypical chest pain for CAD. No palpitations. No orthopnea.. GASTROINTESTINAL: No abdominal pain. No nausea or vomiting. No diarrhea or constipation. No hematemesis. No hematochezia. GENITOURINARY: No urgency. No frequency. No dysuria. No hematuria. No obstructive symptoms. No discharge. No pain. No significant abnormal bleeding. MUSCULOSKELETAL: No musculoskeletal pain; no joint swelling. NEUROLOGICAL: Awake, alert, oriented to time, place and person. No headache. No neck pain. No syncope. No seizures. No dizziness. PSYCHIATRIC: Not anxious. No depression. No suicidal thoughts. No homicidal thoughts. SKIN: No rash. No lesions. No wounds. ENDOCRINE: No unexplained weight loss. No weight gain. HEMATOLOGIC/LYMPHATIC: No anemia. No purpura. No petechiae. No prolonged or excessive bleeding. No palpable lymph nodes. PHYSICAL EXAMINATION: GENERAL: The patient is awake, alert and oriented, sitting in bed in no distress. VITAL SIGNS: Temperature 98.1 F, Pulse 64, Respiratory Rate 16, BP 112/68, Pulse Ox 95% HEENT: Head normocephalic, atraumatic. Eyes: Extraocular muscles are intact. Pupils are equal, round and reactive to light and accommodation. Ears: No le sions. Nose appeared normal. Throat: No exudate or erythema. NECK: Supple. No JVD, no carotid bruit. No lymphadenopathy or thyromegaly. LUNGS: Diminished breath sounds. Clear to auscultation. Percussion note normal. Chest symmetrical. HEART: S1, S2, no S3. No murmurs. No cyanosis or clubbing. No ascites. Pulses: Dorsalis pedis and posterior tibial pulses +1 to +2 both sides. ABDOMEN: Soft. Non-tender. Bowel sounds active. No CVA tenderness. No mass felt. EXTREMITIES: Trace pedal edema. Full range of motion of all extremities, equal. NEUROLOGIC: No focal deficit. Cranial nerves II through XII are grossly intact. No headache, no double vision or headache. SKIN: Not dry. Intact. Turgor-normal. LYMPHATIC: No palpable lymph nodes/no lymphedema. MUSCULOSKELETAL: Normal joints with no swelling. Muscle tone is normal. LAB REVIEW: 10/27/19 04:38 10/27/19 04:38 10/27/19 04:38: Sodium 138.2, Potassium 4.20, Chloride 100.4, Carbon Dioxide 32.7 H, Anion Gap 9.30, BUN 33.7 H, Creatinine 1.04, Estimated GFR (MDRD) 69.00, BUN/Creatinine Ratio 32.40, Glucose 133.5 H, Calcium 8.88, Total Bilirubin 0.41, AST 26.4, ALT 18.6, Alkaline Phosphatase 75.5, Total Protein 6.16 L, Albumin 3.28 L, Globulin 2.88, Albumin/Globulin Ratio 1.13 10/27/19 04:38: WBC 6.91, RBC 4.36 L, Hgb 13.5 L, Hct 41.0 L, MCV 94.0, MCH 31.0, MCHC 32.9, RDW Coeff of Bill 13.0, Plt Count 216, Immature Gran % (Auto) 0.4, Neut % (Auto) 85.5, Lymph % (Auto) 10.1, Pender % (Auto) 3.9, Eos % (Auto) 0.0, Baso % (Auto) 0.1, Immature Gran # (Auto) 0.0, Neut # (Auto) 5.9, Lymph # (Auto) 0.7, Pender # (Auto) 0.3 L, Eos # (Auto) 0.0, Baso # (Auto) 0.0 ASSESSMENT: Please see below. 1. Shortness of breath, improved 2. Fever, resolved 3. Generalized edema 4. Viral syndrome seems to be resolving. PLAN: 1. Discharge home 2. Prednisone 10mg for 5 days 3. Keflex 500mg TID for 5 days Plan and coordination of the patient's care discussed in the presence of Welder Apprentice Arc and nurse. SCRIBED BY: Kayy HARDIN scribed while in presence of service performed by Dr. Goddard/Rajwinder Jackson APRN on 10/27/19 (12)
--- NOTE | 2019-10-27 10:13 | HP ---
DATE OF SERVICE: 10/24/19 REASON FOR HOSPITALIZATION/HISTORY OF PRESENT ILLNESS: 79 year old white male had hands swollen/legs swollen. Fever started day. Shortness of breath and weak. PAST MEDICAL HISTORY: Hypertension Dyslipidemia Osteoarthritis Left sciatica Chronic bronchitis STAR Neuropathy COPD/Asthma Bursitis right shoulder PAST SURGICAL HISTORY: Carotid left side REVIEW OF SYSTEMS: CONSTITUTIONAL: Fever, Fatigue. HEENT: Sinus drainage, no sore throat. RESPIRATORY: No cough, no congestion. CARDIOVASCULAR: No atypical chest pain for coronary artery disease. No angina, CHF symptoms, palpitations. Shortness of breath. GASTROINTESTINAL: No melena or abdominal pain. No GERD. GENITOURINARY: No hematuria, no prostatism, no polyuria. SUPERVISOR HANGING AND TRIMMING: No blackout, no dizziness, no headache, no double vision. MUSCULOSKELETAL: Osteoarthritis pain, no joint swelling. ENDOCRINE: No weight loss, no weight gain. SKIN: Not dry, no rash. PSYCHIATRIC: Not anxious, no depression, no suicidal thoughts, no homicidal thoughts. SOCIAL HISTORY: Marital Status: . Alcohol Usage: No. Tobacco Usage: No. FAMILY HISTORY: Father Mother Brother 2 Sister 3 MEDICATIONS: Lisinopril 20mg BID Coreg 25mg PO daily Lasix 40mg PO daily Symbicort 160-4.5mg PO daily Alprazolam 0.25mg PO daily Lovastatin 40mg PO daily Aspirin 81mg PO daily Flomax 0.4mg PO three times a week. ALLERGIES: No known allergies. PHYSICAL EXAMINATION: V/S: Pulse 80, blood pressure 154/80, temperature 100, oxygen saturation 97%, height 5'9, BMI 29.2 with weight 197.4. GENERAL APPEARANCE: Oriented times three. HEENT: Pallor. NECK: No JVP, no bruits. RESPIRATORY: Decreased breath sounds creps left lower lobe. Shortness of breath. CARDIOVASCULAR: S1, S2, no S3, no murmur. No cyanosis, clubbing. No ascites. GI/ABDOMEN: No tenderness. Bowel sounds are active. EXTREMITIES: +2 edema bilateral lower extremity, pulses +1, equal. SUPERVISOR HANGING AND TRIMMING: Deep tendon reflexes, sensory, motor and gait all normal. RECTAL: 01-07 Dr. Dunne/PROSTATE: 11/08 (0.9). ASSESSMENT: 1. Shortness of breath 2. Fever 3. Leg edema 4. Status post carotid endarterectomy left 07-24-19 5. Palpitations 6. Right shoulder pain, bursitis 7. Chronic bronchitis 8. Hypertension 9. 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 Mata 15.Chronic leg edema with pigment 16.COPD/Asthma Dr. Alvarado 17.Lipoma left knee, Ortho 18.Bilateral carotid stenosis, Dr. Oden 19.History of noncompliance with diet, lifestyle and followup. PLAN: 1. Routine telemetry orders 2. CBC and CMP now and daily 3. Rapid Flu A and B 4. Chest x-ray 5. U/A 6. Lasix 20mg IV times one dose 7. ABG's on room air times one 8. Blood culture times 2 9. Elevate legs 10.Rocephin 1 gram IV daily 11.Continue home medications 12.DUO NEBS treatment QID scheduled 13.Regular diet 14.Solu-Cortef 125mg IV Q 8 hours TIME SPENT: More than 70 minutes. MTDD
--- NOTE | 2019-10-27 13:18 | CM.DICTOOL ---
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 NONCOMPLIANCE: MEDS,DIET, LIFESTYLE BILATERAL CAROTID STENOSIS GENERAL ANXIETY DISORDER NEUROPATHY COPD/ASTHMA OA LT SCIATICA RT SHOULDER PAIN BURSITIS CAD SURGICAL HISTORY: RT TKR CAROTID ENDARTECTOMY LT 07-24-2019 LIPOMA LT KNEE LAST VITALS Temp Pulse Resp BP Pulse Ox 98.1 F 64 16 112/68 95 10/27/19 05:10 10/27/19 05:10 10/27/19 05:10 10/27/19 05:10 10/27/19 05:10 TAKE THESE MEDICATIONS AT HOME Alprazolam (Xanax) 0.25 mg PO BEDTIME PRN PRN Reason: Insomnia Aspirin (Aspirin Ec) 81 mg PO EVERY OTHER DAY [facility] Last Admin: 10/26/19 08:54 Dose: 81 mg Budesonide/Formoterol Fumarate (Symbicort 160-4.5 Mcg Inhaler) 2 puff IH BID [facility] Last Admin: 10/27/19 09:12 Dose: 2 puff Documented by: Furosemide (Lasix Tab) 40 mg PO DAILY [facility] ( CHANGED Last Admin: 10/27/19 09:12 Dose: 40 mg Tamsulosin HCl (Flomax) 0.4 mg PO MOWEFR [facility] Last Admin: 10/24/19 20:53 Dose: 0.4 mg PREDNISONE 10 MG PO DAILY X 5 DAYS (NEW) KEFLEX 500 MG PO T.I.D. X 5 DAYS ( NEW) POTASSIUM 10 MEQ ONE PO DAILY (NEW) ( LASIX NOW DAILY WAS PRN AT HOME) ALLERGIES tramadol Allergy (Mild, Verified 10/13/19 08:37) Itching DISCONTINUED MEDICATIONS NONE NEW PRESCRIPTIONS: LASIX 40 MG PO DAILY (CHANGED) PREDNISONE 10 MG PO DAILY X 5 DAYS (NEW) KEFLEX 500 MG PO T.I.D. X 5 DAYS ( NEW) POTASSIUM 10 MEQ ONE PO DAILY (NEW) ( LASIX NOW DAILY WAS PRN AT HOME) SMOKING: NON-APPLICABLE DISEASE SPECIFIC EDUCATION: ASTHMA BRONCHITIS LOWER EXTREMITY EDEMA PREDNISONE WITH FOOD LAB REVIEW: 10/27/19 04:38 10/27/19 04:38 10/27/19 04:38: Sodium 138.2, Potassium 4.20, Chloride 100.4, Carbon Dioxide 32.7 H, Anion Gap 9.30, BUN 33.7 H, Creatinine 1.04, Estimated GFR (MDRD) 69.00, BUN/Creatinine Ratio 32.40, Glucose 133.5 H, Calcium 8.88, Total Bilirubin 0.41, AST 26.4, ALT 18.6, Alkaline Phosphatase 75.5, Total Protein 6.16 L, Albumin 3.28 L, Globulin 2.88, Albumin/Globulin Ratio 1.13 10/27/19 04:38: WBC 6.91, RBC 4.36 L, Hgb 13.5 L, Hct 41.0 L, MCV 94.0, MCH 31.0, MCHC 32.9, RDW Coeff of Bill 13.0, Plt Count 216, Immature Gran % (Auto) 0.4, Neut % (Auto) 85.5, Lymph % (Auto) 10.1, Sabine % (Auto) 3.9, Eos % (Auto) 0.0, Baso % (Auto) 0.1, Immature Gran # (Auto) 0.0, Neut # (Auto) 5.9, Lymph # (Auto) 0.7, Sabine # (Auto) 0.3 L, Eos # (Auto) 0.0, Baso # (Auto) 0.0 PLAN: DISCHARGE HOME ACTIVITY: UP TOLERATED WITH FREQUENT REST PERIODS. NO STRENUOUS ACTIVITY. SLEEP IN BED WITH LEGS ELEVATED AND INTERMITTENTLY ELEVATE LEGS MUCH POSSIBLE DURING THE DAY. DIET: REGULAR CODE STATUS: FULL CODE SEE DR. GODDARD/ RONNIE ELENA APRN IN THE OFFICE ON NOVEMBER 03, 2019 @ [address] UMANA PREVIOUSLY SCHEDULED AND NEEDED. DEFINITELY FOLLOW UP. MR. SANIA LEALS ALERT AND ORIENTED X 4. PLEASANT AND TALKATIVE. CAN TALK WITHOUT GETTING OUT OF BREATH. CONTINUES TO HAVE EXERTIONAL DYSPNEA BUT VERY MUCH IMPROVED. NON PRODUCTIVE OCCASIONAL COUGH. WAS ADMITTED DIRECT FROM DR. FISHER OFFICE ON 10-24-2019 WITH FEVER, SOB AND LEG EDEMA. USED LASIX NEDDED AND STATED HAS BEEN USING AT HOME REGULARLY DUE TO INCREASED LEG EDEMA. SLEEPS IN RECLINER DUE TO DISABLED SPOUSE BEING CONFINED TO HOSPITAL BED IN THE LIVING ROOM AND NO OTHER ROOM FOR ANOTHER BED. INSTRUCTED ON OPTIONS TO MONITOR HIS SPOUSE AND/OR HER ABILITY TO CONTACT HIM WHILE HE SLEEPS IN HIS BED AT NIGHT WITH HIS FEET ELEVATED. MR. LUI VERBALIZED UNDERSTANDING AND ACCEPTANCE. NON- PITTING EDEMA TO LEGS, NO OPEN AREAS WITH HYPERPIGMENTATION. HAND SWELLING HAS IMPROVED, HE STATES," I CAN CLOSE MY HANDS NOW" . O2 SATS ON ROOM AIR WERE 97% THIS AM. HE IS UP TOLERATED INDEPENDENTLY AT HOME AND STATES NO CHANGES IN THAT AREA. FLUID AND NUTRITIONAL INTAKE IS ACCEPTABLE. LBM 10/27/2019. 2-D ECHO COMPLETED, OK TO DISCHARGE. MD RONNIE LAMBERT, GENERAL LABOR FORKLIFT OPERATOR
--- NOTE | 2019-10-27 14:31 | PN ---
DATE OF SERVICE: 10/25/19 SUBJECTIVE: The patient is seen and examined in the [facility]. His condition has improved. He is talking a lot better. Hydration status and color is a lot better. His edema is practically gone. He has a dark pigmented area in both lower legs. His problem is sitting in the chair taking of his disabled for a number of years and sleeps in the recliner with legs hanging most of the time. PLAN: 1. The patient is advised to keep his legs up. 2. Advised to cut down on salt. 3. Will continue Lasix. 4. Will do an Echocardiogram to evaluate LV function. CONDITION: Otherwise is stable. TIME SPENT: More than 30 minutes. Plan and coordination of the patient's care discussed in the presence of nurse. TONIE
--- NOTE | 2019-10-27 14:35 | PN ---
DATE OF SERVICE: 10/26/19 SUBJECTIVE: 79-year-old white male hospitalized with fever, short of breath and edema. The patient's leg edema is completely resolved. The patient is doing well. He says he is feeling a lot stronger. No fatigue. No shortness of breath. REVIEW OF SYSTEMS: CONSTITUTIONAL: No night sweats. No fatigue, malaise, lethargy. No fever or chills. HEENT: Eyes: No visual changes. No eye pain. No eye discharge. ENT: No runny nose. No epistaxis. No sinus pain. No sore throat. No odynophagia. No congestion. RESPIRATORY: No cough, no congestion. No hemoptysis. No shortness of breath. CARDIOVASCULAR: No angina symptoms. No CHF symptoms. No atypical chest pain for CAD. No palpitations. No PND. No orthopnea. GASTROINTESTINAL: No abdominal pain. No nausea or vomiting. No diarrhea or constipation. No hematemesis. No hematochezia. GENITOURINARY: No urgency. No frequency. No dysuria. No hematuria. No obstructive symptoms. No discharge. No pain. No significant abnormal bleeding. MUSCULOSKELETAL: No musculoskeletal pain; no joint swelling. NEUROLOGICAL: No headache. No neck pain. No syncope. No seizures. No dizziness. PSYCHIATRIC: Not anxious. No depression. No suicidal thoughts. No homicidal thoughts. SKIN: No rash. No lesions. No wounds. ENDOCRINE: No unexplained weight loss. No weight gain. HEMATOLOGIC/LYMPHATIC: No anemia. No purpura. No petechiae. No prolonged or excessive bleeding. No palpable lymph nodes. PHYSICAL EXAMINATION: VITAL SIGNS: Temperature 97.9, pulse 82, respiratory rate 16, BP 135/74. Pulse ox 97% on room air. HEENT: Head normocephalic, atraumatic. Eyes: Extraocular muscles are intact. Pupils are equal, round and reactive to light and accommodation. Ears: No lesions. Nose appeared normal. Throat: No exudate or erythema. NECK: Supple. No JVD, no carotid bruit. No lymphadenopathy or thyromegaly. LUNGS: Clear to auscultation. Percussion note normal. Chest symmetrical. HEART: S1, S2, no S3. No murmurs. No cyanosis or clubbing. No ascites. Pulses: Dorsalis pedis and posterior tibial pulses +1 to +2 bilaterally. ABDOMEN: Soft. Nontender. Bowel sounds active. No CVA tenderness. No mass felt. EXTREMITIES: No edema noted. Darkly pigmented lower legs noted. Full range of motion of all extremities, equal. NEUROLOGIC: No focal deficit. Cranial nerves II through XII are grossly intact. No headache, no double vision or headache. SKIN: Not dry. Intact. Turgor - normal. LYMPHATIC: No palpable lymph nodes/no lymphedema. MUSCULOSKELETAL: Normal joints with no swelling. Muscle tone is normal. PLAN: 1. Elevate the legs. 2. Advised to cut down on salt intake. 3. Will do echocardiogram to evaluate LV function. CONDITION: Stable TIME SPENT: More than 30 minutes. Plan and coordination of the patient's care discussed in the presence of nurse. TONIE
--- NOTE | 2019-10-28 08:48 | ECHO2D ---
Date of Exam: 10/27/19 Ordering Physician: DR. VIBHA GODDARD Room #: SCU1 Reason for Echo: SOB, LEG EDEMA, ASTHMA, R/O LVF M-Mode Normal Adult Results LV Dimensions Normal Adult Results AoV Opening excursions >1.6 >1.6 LVEDD-base- 3.5-5.8 5.5 Ao root dimensions 2.0-3.7 3.7 LVESD-base- 3.1-4.6 L. Atrium dimensions 1.9-3.8 4.5 Post. Wall thickness 0.8-1.1 1.4 IV septum (thickness) 0.7-1.2 1.4 Post. Wall excursion 0.72-1.3 NORMAL Septal motion NORMAL Systolic motion R. Ventricular cavity 1.5-2.0 NORMAL LVEF 60% 57% Paradoxical septal wall motion NORMAL 2-D : 2-D M Mode Echocardiogram was performed using apical four chamber and left parasternal long and short axis views. Mitral, tricuspid and aortic valves appear to be normal. Contractility of the left ventricle seems to be normal, so is the cavity size. LEFT ATRIAL CAVITY ENLARGEMENT. Aortic root appears to be normal. There is no pericardial effusion. There is no thrombus noted in the left ventricle or left atrial cavity. No mitral valve prolapse noted. M-MODE: MV: NORMAL AV: NORMAL TV: NORMAL PV: CHAMBER SIZE: ENLARGED LEFT ATRIAL CAVITY WALL MOTION: NORMAL PERICARDIUM: NORMAL INTERPRETATION: 1. LEFT VENTRICULAR HYPERTROPHY WITH ENLARGED LEFT ATRIAL CAVITY 2. BORDERLINE LEFT VENTRICLE CAVITY (5.5 CM) 3. NORMAL VALVES 4. NORMAL LEFT VENTRICLE CAVITY MTDD
--- NOTE | 2019-10-28 11:35 | PN ---
DATE OF SERVICE: 10/27/19 SUBJECTIVE: The patient was seen and examined with the nurse practitioner. The patient's condition is stable. He is breathing a lot better. His pulmonary function test almost returned to normal with remarkable improvement. His leg edema has practically subsided. The patient's echocardiogram showed borderline LV cavity, enlarged LA cavity, practically normal LV contractility. The patient is advised to elevate the legs, not to sleep in the recliner because that will make him prone to have leg edema. He is to cut down on salt intake. The patient doesn't pay attention to his food because of his being sick for a number of years, handicapped with multiple sclerosis, bedridden. Condition is stable. TIME SPENT: More than 30 minutes. Plan and coordination of the patient's care discussed in the presence of nurse. TONIE
--- NOTE | 2019-10-28 11:46 | PN ---
CODING FOR BILLING 10/24/19 LEVEL 5 10/25/19 INTERMEDIATE 10/26/19 INTERMEDIATE 10/27/19 DISCHARGE MTDD
--- NOTE | 2019-10-28 11:57 | DS ---
DATE OF SERVICE: 10/27/2019 FINAL DIAGNOSIS: 1. SOB- IMPROVED 2. COPD 3. ASTHMA 4. GENERALIZED EDEMA- IMPROVED 5. VIRAL SYNDROME- RESOLVED 6. HISTORY OF COPD 7. CHRONIC BRONCHITIS 8. PALPITATIONS 9. HYPOXEMIA 10. HYPERTENSION/ LVH 11. 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 CHRONIC DERMATITIS ON THE SHINS 14. CHRONIC LEG WOUNDS 15. NONCOMPLIANCE: MEDS,DIET, LIFESTYLE 16. BILATERAL CAROTID STENOSIS 17. GENERAL ANXIETY DISORDER 18. NEUROPATHY 19. COPD/ASTHMA 20. OA 21. LT SCIATICA 22. RT SHOULDER PAIN BURSITIS 23. CAD 24. RT TKR 25. CAROTID ENDARTERECTOMY LT 07-24-2019 26. LIPOMA LT KNEE LAST VITALS: Temp Pulse Resp BP Pulse Ox 98.1 F 64 16 112/68 95 10/27/19 05:10 10/27/19 05:10 10/27/19 05:10 10/27/19 05:10 10/27/19 05:10 DISCHARGE INSTRUCTIONS: DISCHARGE HOME. CODE STATUS: FULL CODE. SEE DR. GODDARD/ RONNIE ELENA APRN IN THE OFFICE ON NOVEMBER 03, 2019 @ [address] UMANA PREVIOUSLY SCHEDULED AND NEEDED. DEFINITELY FOLLOW UP. TAKE THESE MEDICATIONS AT HOME: Alprazolam (Xanax) 0.25 mg PO BEDTIME PRN PRN Reason: Insomnia Aspirin (Aspirin Ec) 81 mg PO EVERY OTHER DAY [facility] Last Admin: 10/26/19 08:54 Dose: 81 mg Budesonide/Formoterol Fumarate (Symbicort 160-4.5 Mcg Inhaler) 2 puff IH BID [facility] Last Admin: 10/27/19 09:12 Dose: 2 puff Documented by: Furosemide (Lasix Tab) 40 mg PO DAILY [facility] ( CHANGED Last Admin: 10/27/19 09:12 Dose: 40 mg Tamsulosin HCl (Flomax) 0.4 mg PO MOWEFR [facility] Last Admin: 10/24/19 20:53 Dose: 0.4 mg PREDNISONE 10 MG PO DAILY X 5 DAYS (NEW) KEFLEX 500 MG PO T.I.D. X 5 DAYS ( NEW) POTASSIUM 10 MEQ ONE PO DAILY (NEW) ( LASIX NOW DAILY WAS PRN AT HOME) ALLERGIES: tramadol Allergy (Mild, Verified 10/13/19 08:37) Itching DISCONTINUED MEDICATIONS: NONE NEW PRESCRIPTIONS: LASIX 40 MG PO DAILY (CHANGED) PREDNISONE 10 MG PO DAILY X 5 DAYS (NEW) KEFLEX 500 MG PO T.I.D. X 5 DAYS ( NEW) POTASSIUM 10 MEQ ONE PO DAILY (NEW) ( LASIX NOW DAILY WAS PRN AT HOME) SMOKING: NON-APPLICABLE DISEASE SPECIFIC EDUCATION: ASTHMA BRONCHITIS LOWER EXTREMITY EDEMA PREDNISONE WITH FOOD LAB REVIEW: 10/27/19 04:38 10/27/19 04:38 10/27/19 04:38: Sodium 138.2, Potassium 4.20, Chloride 100.4, Carbon Dioxide 32.7 H, Anion Gap 9.30, BUN 33.7 H, Creatinine 1.04, Estimated GFR (MDRD) 69.00, BUN/Creatinine Ratio 32.40, Glucose 133.5 H, Calcium 8.88, Total Bilirubin 0.41, AST 26.4, ALT 18.6, Alkaline Phosphatase 75.5, Total Protein 6.16 L, Albumin 3.28 L, Globulin 2.88, Albumin/Globulin Ratio 1.13 10/27/19 04:38: WBC 6.91, RBC 4.36 L, Hgb 13.5 L, Hct 41.0 L, MCV 94.0, MCH 31.0, MCHC 32.9, RDW Coeff of Bill 13.0, Plt Count 216, Immature Gran % (Auto) 0.4, Neut % (Auto) 85.5, Lymph % (Auto) 10.1, [place] % (Auto) 3.9, Eos % (Auto) 0.0, Baso % (Auto) 0.1, Immature Gran # (Auto) 0.0, Neut # (Auto) 5.9, Lymph # (Auto) 0.7, [place] # (Auto) 0.3 L, Eos # (Auto) 0.0, Baso # (Auto) 0.0 ACTIVITY: UP TOLERATED WITH FREQUENT REST PERIODS. NO STRENUOUS ACTIVITY. SLEEP IN BED WITH LEGS ELEVATED AND INTERMITTENTLY ELEVATE LEGS MUCH POSSIBLE DURING THE DAY. DIET: REGULAR HOSPITAL COURSE: 79 year old white male who was a direct admit from our office with fever for the past 5 days. He had worsening edema in his legs and his hands. He was extremely short of breath. He was short of breath walking to the exam room from the waiting room. He was admitted. Influenza A and B was negative. Chest x-ray was normal. He was given Lasix 40mg IV times one dose. He had a significant amount of output. Kidney function was slightly elevated showing mild dehydration. Chest x-ray was normal despite the fact that he has had coughing and extreme shortness of breath. He was placed on Rocephin 1 gram IV daily. BNP is slightly elevated at 408. Dr. Goddard performed an echo. He instructed him to take his Lasix 40mg PO daily instead of PRN as he has been taking it. As of today he has not had fever for 48 hours. He has been eating well. His shortness of breath is significantly improved. He also placed on steroids at 125mg IV Q 8 hours as well as Xopenex NEBS treatments TID. Again he is significantly improved. We will discharge him in stable condition today. He is anxious to get home to take care of his . He has been eating well, up and about in the room with significantly improved shortness of breath. We will send him home on Keflex 500mg TID for the next 7 days along with Prednisone 10mg PO BID for the next 5 days. He has been instructed to take Lasix 40mg daily along with Potassium 10meq daily. We will see him in the office next week. TIME SPENT: More than 60 minutes. MTDD
== END 2019-10-27 13:34 | disposition home or self-care (01) | DRG 192 ==
LOC: SCU 13:45
PROVIDERS: ADMIT Internal Medicine; ATTEND Internal Medicine
DX: J44.9 Chronic obstructive pulmonary disease, unspecified; B34.9 Viral infection, unspecified; D17.24 Benign lipomatous neoplasm of skin and subcutaneous tissue of left leg; R60.0 Localized edema; M71.811 Other specified bursopathies, right shoulder; Z91.19 Patient's noncompliance with other medical treatment and regimen; M54.42 Lumbago with sciatica, left side; F41.1 Generalized anxiety disorder; S81.809A Unspecified open wound, unspecified lower leg, initial encounter; E78.5 Hyperlipidemia, unspecified; J45.909 Unspecified asthma, uncomplicated; J42 Unspecified chronic bronchitis; G62.9 Polyneuropathy, unspecified; R60.1 Generalized edema; I25.10 Atherosclerotic heart disease of native coronary artery without angina pectoris; I65.23 Occlusion and stenosis of bilateral carotid arteries; R50.9 Fever, unspecified; M19.90 Unspecified osteoarthritis, unspecified site; R00.2 Palpitations; I10 Essential (primary) hypertension; R09.02 Hypoxemia; L57.9 Skin changes due to chronic exposure to nonionizing radiation, unspecified; D69.6 Thrombocytopenia, unspecified

== ENCOUNTER 2022-02-21 14:07 | Inpatient (IN) ==
[2022-02-21 14:24] LABS: BORDETELLA PARAPERTUSSIS (PCR) NOT DETECTED (NOT DETECT); BORDETELLA PERTUSSIS (PCR) NOT DETECTED (NOT DETECT); CHLAMYDIA PNEUMONIAE (PCR) NOT DETECTED (NOT DETECT); CORONAVIRUS 229E (PCR) NOT DETECTED (NOT DETECT); CORONAVIRUS HKU1 (PCR) NOT DETECTED (NOT DETECT); CORONAVIRUS NL63 (PCR) NOT DETECTED (NOT DETECT); CORONAVIRUS OC43 (PCR) NOT DETECTED (NOT DETECT); HUMAN METAPNEUMOVIRUS (PCR) NOT DETECTED (NOT DETECT); HUMAN RHINOVIRUS/ENTEROV (PCR) NOT DETECTED (NOT DETECT); INFLUENZA B (PCR) NOT DETECTED (NOT DETECT); MYCOPLASMA PNEUMONIAE (PCR) NOT DETECTED (NOT DETECT); PARAINFLUENZA VIRUS 1 (PCR) NOT DETECTED (NOT DETECT); PARAINFLUENZA VIRUS 2 (PCR) NOT DETECTED (NOT DETECT); PARAINFLUENZA VIRUS 3 (PCR) NOT DETECTED (NOT DETECT); PARAINFLUENZA VIRUS 4 (PCR) NOT DETECTED (NOT DETECT); RESPIRATORY SYNCYTIAL V (PCR) NOT DETECTED (NOT DETECT); SARS_COV_2 (PCR) NOT DETECTED (NOT DETECT)
[2022-02-21 15:13] LABS: ADENOVIRUS (PCR) NOT DETECTED (NOT DETECT)
[2022-02-21] MEDS ORDERED: TYLENOL PO PRN (16:01)
[2022-02-21] MEDS ORDERED: NITROSTAT SL PRN (16:01)
[2022-02-21] MEDS ORDERED: ATROPINE SULFATE PFS IVP PRN (16:01)
[2022-02-21] MEDS ORDERED: TORADOL IVP PRN (16:16)
[2022-02-21 16:30] LABS: BASOPHILS % (AUTO) 0.5 % (0.0-3.0); EOSINOPHILS # (AUTO) 0.2 K/ul (0.0-0.7); EOSINOPHILS % (AUTO) 3.6 % (0.0-7.0); HEMATOCRIT 39.1 % (42.0-52.0); IMMATURE GRANULOCYTE % (AUTO) 0.3 % (0.0-5.0); LYMPHOCYTES % (AUTO) 14.8 (10.0-50.0); MEAN CORPUSCULAR HEMOGLOBIN 31.1 pg (27.0-31.0); MEAN CORPUSCULAR HGB CONC 33.2 (31.8-35.4); MEAN CORPUSCULAR VOLUME 93.5 fl (80.0-94.0); MONOCYTES # (AUTO) 0.6 K/uL (0.4-2.0); MONOCYTES % (AUTO) 8.7 (0-10); NEUTROPHILS # (AUTO) 4.6 K/ul (2.0-6.9); NEUTROPHILS % (AUTO) 72.1 % (42.2-75.2); PLATELET COUNT 247 10^3/uL (140-440); RED BLOOD COUNT 4.18 10^6/ul (4.70-6.10); WHITE BLOOD COUNT 6.42 K/ul (4.2-10.2)
[2022-02-21 16:39] LABS: ALANINE AMINOTRANSFERASE 16.6 U/L (0-50); ALBUMIN 3.95 g/dL (3.5-5.0); ALKALINE PHOSPHATASE 142.7 U/L (56-119); ASPARTATE AMINO TRANSFERASE 35.6 U/L (17-59); BILIRUBIN,TOTAL 0.77 mg/dL (0.2-1.3); BLOOD UREA NITROGEN 20.8 mg/dL (9-20); CALCIUM 8.66 mg/dL (8.4-10.2); CARBON DIOXIDE 31.5 mmol/L (22-30.0); CHLORIDE 102.6 mmol/L (98-107); CREATINE KINASE 131.3 U/L (55-170); CREATININE 1.07 mg/dL (0.60-1.10); GLUCOSE 98.3 mg/dL (74-106); SODIUM 139.5 mmol/L (134.5-145)
[2022-02-21] MEDS: LASIX IVP SCH (16:46)
[2022-02-21] MEDS: NORCO 7.5-325 PO PRN (16:47)
[2022-02-21 16:53] LABS: TROPONIN I < 0.012 ng/ml (0.0000-0.120)
--- NOTE | 2022-02-21 16:53 | DI ---
EXAM: CHEST RADIOGRAPH (2 VIEW) TECHNIQUE: AP and Lateral Chest Radiographs. HISTORY: Cough COMPARISON: 11/02/2020 FINDINGS: Lines, Tubes, Devices: None. Lungs and Pleura: Interstitial prominence and hazy densities in the lungs. Blunting of the costophr enic sulci, similar to the previous study. Cardiomediastinum: Normal cardiomediastinal silhouette. Mild to moderate aortic calcifications. Bones/Soft Tissues: No acute osseous abnormality. No soft tissue abnormality. Upper Abdomen: Within normal limits. IMPRESSION: Interstitial prominence and hazy densities in the lungs. Correlate for pneumonitis and / or intersti tial edema
[2022-02-21] MEDS: BACTROBAN TP SCH ×2 (16:54→22:11)
[2022-02-21 17:15] VITALS: BMI 29.1
[2022-02-21] MEDS: CLEOCIN 600 MG/50 ML D5W 600 MG/50 ML BAG IV SCH ×2 (17:30→22:11)
[2022-02-21 17:48] LABS: BILIRUBIN,URINE Negative (NEGATIVE); CLARITY,URINE Clear (CLEAR); COLOR,URINE Yellow (YELLOW); GLUCOSE, URINE (UA) Negative (NEGATIVE); KETONES,URINE Negative (NEGATIVE); LEUKOCYTE ESTERASE ,URINE Negative (NEGATIVE); NITRITE,URINE Negative (NEGATIVE); PROTEIN,URINE Negative (NEGATIVE); URINE, BLOOD Negative (NEGATIVE); UROBILINOGEN,URINE 0.2 (0.2)
[2022-02-21] MEDS: SYMBICORT 160-4.5 MCG INHALER IH SCH (22:10)
[2022-02-22 00:25] LABS: BASOPHILS % (AUTO) 0.8 % (0.0-3.0); EOSINOPHILS # (AUTO) 0.3 K/ul (0.0-0.7); EOSINOPHILS % (AUTO) 6.5 % (0.0-7.0); HEMATOCRIT 35.7 % (42.0-52.0); HEMOGLOBIN 11.7 g/dl (14.0-18.0); IMMATURE GRANULOCYTE % (AUTO) 0.2 % (0.0-5.0); LYMPHOCYTES # (AUTO) 1.1 K/uL (0.60-3.4); LYMPHOCYTES % (AUTO) 23.6 (10.0-50.0); MEAN CORPUSCULAR HEMOGLOBIN 30.9 pg (27.0-31.0); MEAN CORPUSCULAR HGB CONC 32.8 (31.8-35.4); MEAN CORPUSCULAR VOLUME 94.2 fl (80.0-94.0); MONOCYTES # (AUTO) 0.6 K/uL (0.4-2.0); MONOCYTES % (AUTO) 11.7 (0-10); NEUTROPHILS # (AUTO) 2.7 K/ul (2.0-6.9); NEUTROPHILS % (AUTO) 57.2 % (42.2-75.2); PLATELET COUNT 196 10^3/uL (140-440); RDW COEFFICIENT OF VARIATION 14.1 % (11.6-14.8); RED BLOOD COUNT 3.79 10^6/ul (4.70-6.10); WHITE BLOOD COUNT 4.78 K/ul (4.2-10.2)
[2022-02-22 00:36] LABS: ALANINE AMINOTRANSFERASE 14.1 U/L (0-50); ALBUMIN 3.18 g/dL (3.5-5.0); ALKALINE PHOSPHATASE 109.6 U/L (56-119); ASPARTATE AMINO TRANSFERASE 30.4 U/L (17-59); BILIRUBIN,TOTAL 0.65 mg/dL (0.2-1.3); BLOOD UREA NITROGEN 22.7 mg/dL (9-20); CALCIUM 8.06 mg/dL (8.4-10.2); CARBON DIOXIDE 33.8 mmol/L (22-30.0); CREATINE KINASE 97.6 U/L (55-170); CREATININE 1.17 mg/dL (0.60-1.10); GLUCOSE 92.7 mg/dL (74-106); POTASSIUM 3.45 mmol/L (3.5-5.1); SODIUM 139.2 mmol/L (134.5-145); TOTAL PROTEIN 6.26 g/dL (6.3-8.2)
[2022-02-22 00:48] LABS: TROPONIN I 0.013 ng/ml (0.0000-0.120)
[2022-02-22] MEDS: NORCO 7.5-325 PO PRN (02:57)
[2022-02-22] MEDS: CLEOCIN 600 MG/50 ML D5W 600 MG/50 ML BAG IV SCH ×3 (04:53→20:34)
[2022-02-22] MEDS: LASIX IVP SCH (05:37)
[2022-02-22] MEDS: MICRO-K CAP PO SCH (09:16)
[2022-02-22] MEDS: COREG PO SCH (09:16)
[2022-02-22] MEDS: FLOMAX PO SCH (09:16)
[2022-02-22] MEDS: BACTROBAN TP SCH ×2 (09:17→20:35)
[2022-02-22] MEDS: SYMBICORT 160-4.5 MCG INHALER IH SCH ×2 (09:18→20:35)
[2022-02-22] MEDS: MIRALAX PO SCH (11:33)
--- NOTE | 2022-02-22 13:10 | RS.PTINEVL ---
Subjective - Patient information Date of Evaluation: 02/22/22 Date of Arrival on Unit: 02/21/22 Admitted From:: Home Diagnosis: cellulitis Usual Living Arrangement: With Spouse Living Arrangement Comments: lives with who is bedridden Home Environment: House, Stairs (few) Medical History: Hypertension, CVA/TIA, COPD, Arthritis LATEX ALLERGY?: No Surgical History: Knee Replacement, Cholecystectomy Surgical History Comments:: CEA Medications: see chart Subjective Information/ Patient Comments:: pt states that he is the primary caregiver for his who is bedridden. pt reports that he gets dizzy when he looks up and has had recent fall after looking up at some wood bees. - Level of function Prior to this admission, the patient could do the following:: Independent Selfc are, Independent ADL's, Independent Ambulation, Drive, Participated in Social Activities Outside home Abilities prior to this admission: pt amb with cane Current Level of Function: Partially Dependent Current Equipment Used at Home: Straight cane; Pain Assessement - Location mid back Description: Aching Pain Behavior: Facial Grimacing Pain Aggravating Factors: Changing Position, Standing, Walking Pain Alleviating Factors: Medication Interventions - Objective Patient Orientation: Person, Place, Time, Situation Current Interventions: IV's, Oxygen Observation: BLE with significant edema with erythema and open areas with blood tinged exudate. Range of Motion - ROM Right Upper Extremity AROM: WFL's Left Upper Extremity AROM: WFL's Right Lower Extremity AROM: WFL's Left Lower Extremity AROM: WFL's Muscle Strength - Muscle Strength Right Upper Extremity Strength: Mild Weakness (grossly 4/5) Left Upper Extremity Strength: Mild Weakness (grossly 4/5) Right Lower Extremity Strength: Mild Weakness (hip flex 4/5, knee flex 4-/5, ext 4-/5, ankle DF/PF 4/5) Left Lower Extremity Strength: Mild Weakness (hip flex 4/5, knee flex 4-/5, ext 4-/5, ankle DF/PF 4/5) Sensation - Sensation Right Upper Extremity Sensation: Intact/Normal Left Upper Extremity Sensation: Intact/Normal Right Lower Extremity Sensation: Impaired Left Lower Extremity Sensation: Impaired (decreased sensation BLE due to edema) Palpation Palpation Findings: Tenderness (tenderness to palpation of mid thoracic area) Balance - Sitting Balance and Reactions Static Sitting Balance: Good Dynamic Sitting Balance: Fair - Standing Balance and Reactions Static Standing Balance: Poor Dynamic Standing Balance: Poor Standing Equilibrium Reactions: Delayed Left, Delayed Right Standing Protective Reactions: Delayed Left, Delayed Right - Comments Balance Assessment Comments: Tinetti score: 19/28 which is consistent with mod risk of falls. Functional Mobility - Bed Mobility Rolling R/L: Supervision Supine to Sit: Supervision Sit to Supine: Supervision - Transfers Sit to Stand: CGA Stand to Sit: CGA - Safety Awareness Safety Awareness: Fair KATY INDEX SCORE: n/a Ambulation - Ambulation Assistive Device Used: Small Base Quad Cane Orthotic/Prosthetic Device: No Distance: 100ft Assistance needed with Ambulation: CGA Gait Deviations: Wide Based gait, Forward posture, Short stride, Deviates from path Factors Affecting Ambulation: Decreased Balance, Pain, Weakness, Decreased Safety, Limited Endurance Treatment time - Time with patient Length of Evaluation: 19 Total treatment time: 28 Patient Education - Education Patient Education: Activity Modification, Education of Plan of Care Teaching Recipient: Patient Teaching Methods: Discussion, Demonstration Comments: discussion regarding POC Assessment - Assessment Problem List:: Decreased level of function, Requires training/education, Decreased safety/Risk of falls, Weakness, Pain limits previous level of function, Cognitive status limits abilities Rehab Potential: Good Further Therapy Indicated?: Yes Candidate for Swing Bed for Therapy Services?: Feel pt may not be a candidate for swing bed for therapy due to higher functional level. Evaluation Complexity: HISTORY: Medium, EXAM OF BODY SYSTEMS: Medium, CLINICAL PRESENTATION: Medium, CLINICAL DECISION MAKING: Medium Patient's Goal(s): be able to return home and care for my Short Term Goals GOAL #1: pt transfer sup to/from sit independently Goal to be met by: 02/24/22 GOAL #2: Sit to/from stand SBA Goal to be met by: 02/24/22 GOAL #3: pt amb with AAD 120ft with CGA with no LOB and improved posture Goal to be met by: 02/24/22 GOAL #4: Improve BLE strength 4+/5 Goal to be met by: 02/24/22 Fpc Goals GOAL #1: pt amb functional household distances w AAD independently Goal to be met by: 02/27/22 GOAL #2: Improve tinetti score to 24/28 consistent with low risk of falls. Goal to be met by: 02/27/22 GOAL #3: pt independent with transfers. Goal to be met by: 02/27/22 Plan Plan of Care: Therapeutic EX, Neuromuscular Re-Educ, Therapeutic Activity Other:: gait training Frequency of Treatment: 1-2 X day, as tolerated Duration of Treatment: 5 days Anticipated Discharge Destination: Home Treatment Diagnosis (ICD 10 Codes): impaired balance R 26.81. gait difficulty R 26.2. weakness M62.81 Has the Physician been added for Co-signature?: Yes
[2022-02-22] MEDS ORDERED: TENIVAC IM ONE (14:26)
--- NOTE | 2022-02-22 14:32 | HP ---
DATE OF SERVICE: 02/21/22 REASON FOR HOSPITALIZATION/HISTORY OF PRESENT ILLNESS: Had Rocephin yesterday. Leg edema with redness. No better. Low grade temperature. PAST MEDICAL HISTORY: Hypertension Dyslipidemia Osteoarthritis Left sciatica Chronic bronchitis STAR Neuropathy COPD Asthma Bursitis right shoulder PAST SURGICAL HISTORY: Carotid left side REVIEW OF SYSTEMS: CONSTITUTIONAL: No fever, Fatigue. HEENT: No sinus drainage, no sore throat. RESPIRATORY: No cough, no congestion. CARDIOVASCULAR: No atypical chest pain for coronary artery disease. No angina, CHF symptoms, palpitations or shortness of breath. GASTROINTESTINAL: No melena or abdominal pain. No GERD. GENITOURINARY: No hematuria, no prostatism, no polyuria. EMT P: No blackout, no dizziness, no headache, no double vision. Gait: Unsteady. MUSCULOSKELETAL: No osteoarthritis pain, no joint swelling. ENDOCRINE: No weight loss, no weight gain. SKIN: Not dry, no rash. PSYCHIATRIC: Not anxious, no depression, no suicidal thoughts, no homicidal thoughts. SOCIAL HISTORY: Marital Status: . Alcohol Usage: No. Tobacco Usage: No. FAMILY HISTORY: Father Mother Brother 2 Sister 3 MEDICATIONS: Symbicort 160-4.5 daily Alprazolam 0.25mg daily Aspirin 81mg daily Lasix 40mg daily Methotrexate 2.5 Lovastatin 40mg daily Coreg 6.25mg daily Potassium 10meq daily Folic acid Flomax 0.4mg daily ALLERGIES: No known allergies PHYSICAL EXAMINATION: V/S: Pulse 68, blood pressure 120/74, temperature 99, Oxygen saturation 94%, BMI 29.3, height 5'9, weight 198.6 GENERAL APPEARANCE: Oriented times three. HEENT: Normal. NECK: No JVP, no bruits. RESPIRATORY: Decreased breath sounds. CARDIOVASCULAR: S1, S2, no S3, no murmur. No cyanosis, clubbing. No ascites. GI/ABDOMEN: No tenderness. Bowel sounds are active. EXTREMITIES: +2 right lower extremity edema, +3 left lower extremity edema, red. pulses +1, equal. Open area red base of knee. EMT P: Deep tendon reflexes, sensory, motor and gait all normal. RECTAL/PELVIC/PROSTATE: . ASSESSMENT: 1. Bilateral leg edema 2. Left lower extremity cellulitis 3. Status post fall 3. Left retroperitoneal hematoma 4. Fracture lipedich spinous process fracture L1 and L2 5. Left lower lobe nodular consolidation 6. Right lung nodule Dr. Kruger 7. PET=Occult nodule 8. Weight loss 9. Right renal cyst 10. Palpitations 11. Chronic bronchitis 12.Hypertension 13.STAR 14.Dyslipidemia 15.Neuropathy 16.Osteoarthritis 17.Avulsion fracture 18.Status post fall 19.Status post right carotid endarterectomy 08/09-11/11 San[place]. 20.Left sciatica 21.Right TKR 06/02 H[place] 22. Leg edema 23.COPD 24.CAD 25.RA PLAN: 1. Routine telemetry orders 2. CBC and CMP now and daily 3. Lasix 40mg IV today and tomorrow 4. Hold PO Lasix 5. Wound culture bilateral lower extremity 6. Keep legs elevated 7. Clindamycin 600mg IV Q 8 hours 8. Bactroban BID to open areas 9. Leave legs open to air 10.Regular diet 11. [place] 7.5mg TID PRN 12.Toradol 15mg IV Q 8 hours PRN TIME SPENT: More than 70 minutes. MTDD
[2022-02-23 05:42] LABS: BASOPHILS % (AUTO) 0.7 % (0.0-3.0); EOSINOPHILS # (AUTO) 0.3 K/ul (0.0-0.7); EOSINOPHILS % (AUTO) 5.3 % (0.0-7.0); HEMATOCRIT 38.9 % (42.0-52.0); HEMOGLOBIN 12.8 g/dl (14.0-18.0); IMMATURE GRANULOCYTE % (AUTO) 0.2 % (0.0-5.0); LYMPHOCYTES % (AUTO) 16.7 (10.0-50.0); MEAN CORPUSCULAR HEMOGLOBIN 30.8 pg (27.0-31.0); MEAN CORPUSCULAR HGB CONC 32.9 (31.8-35.4); MEAN CORPUSCULAR VOLUME 93.5 fl (80.0-94.0); MONOCYTES # (AUTO) 0.5 K/uL (0.4-2.0); MONOCYTES % (AUTO) 8.9 (0-10); NEUTROPHILS # (AUTO) 3.9 K/ul (2.0-6.9); NEUTROPHILS % (AUTO) 68.2 % (42.2-75.2); PLATELET COUNT 234 10^3/uL (140-440); RDW COEFFICIENT OF VARIATION 14.2 % (11.6-14.8); RED BLOOD COUNT 4.16 10^6/ul (4.70-6.10)
[2022-02-23] MEDS: CLEOCIN 600 MG/50 ML D5W 600 MG/50 ML BAG IV SCH (05:53)
[2022-02-23 06:02] LABS: ALANINE AMINOTRANSFERASE 15.2 U/L (0-50); ALBUMIN 3.44 g/dL (3.5-5.0); ASPARTATE AMINO TRANSFERASE 30.3 U/L (17-59); BILIRUBIN,TOTAL 0.66 mg/dL (0.2-1.3); BLOOD UREA NITROGEN 21.5 mg/dL (9-20); CALCIUM 8.47 mg/dL (8.4-10.2); CARBON DIOXIDE 33.4 mmol/L (22-30.0); CHLORIDE 100.4 mmol/L (98-107); CREATININE 1.11 mg/dL (0.60-1.10); GLUCOSE 102.9 mg/dL (74-106); POTASSIUM 4.41 mmol/L (3.5-5.1); SODIUM 138.1 mmol/L (134.5-145); TOTAL PROTEIN 6.78 g/dL (6.3-8.2)
[2022-02-23] MEDS ORDERED: CITRATE OF MAGNESIA PO ONE (07:59)
--- NOTE | 2022-02-23 09:42 | PCM.PROG ---
Attending Provider: ATTENDING PROVIDER: Dr. VIBHA GODDARD This patient is seen with Rajwinder Jackson, Nurse Practitioner. DATE OF SERVICE: 02/23/22 SUBJECTIVE: This 81 year old /WHITE M was hospitalized 02/21/22. Resting comfortably. Leg edema has significantly improved. Redness is starting to impro ve. Labs are stable. So far wound culture shows no growth. Back pain has been controlled with [place]. REVIEW OF SYSTEMS: CONSTITUTIONAL: No night sweats. No fatigue, malaise, lethargy. No fever or chills. HEENT: Eyes: No visual changes. No eye pain. No eye discharge. ENT: No runny nose. No epistaxis. No sinus pain. No odynophagia. No congestion. RESPIRATORY: No cough, no congestion. No hemoptysis. No shortness of breath. CARDIOVASCULAR: No angina symptoms. No CHF symptoms. No atypical chest pain for CAD. No palpitations. No orthopnea.. GASTROINTESTINAL: No abdominal pain. No nausea or vomiting. Constipation. No hematemesis. No hematochezia. GENITOURINARY: No urgency. No frequency. No dysuria. No hematuria. No obstructive symptoms. No discharge. No pain. No significant abnormal bleeding. MUSCULOSKELETAL: No musculoskeletal pain; no joint swelling. Back pain. NEUROLOGICAL: Awake, alert, oriented to time, place and person. No headache. No neck pain. No syncope. No seizures. No dizziness. PSYCHIATRIC: Not anxious. No depression. No suicidal thoughts. No homicidal thoughts. SKIN: No rash. No lesions. No wounds.Leg edema. ENDOCRINE: No unexplained weight loss. No weight gain. HEMATOLOGIC/LYMPHATIC: No anemia. No purpura. No petechiae. No prolonged or exc essive bleeding. No palpable lymph nodes. PHYSICAL EXAMINATION: GENERAL: The patient is awake, alert and oriented, sitting in bed in no distress. VITAL SIGNS: Temperature 98.2 F, Pulse 58, Respiratory Rate 18, BP 147/82, Pulse Ox 94% HEENT: Head normocephalic, atraumatic. Eyes: Extraocular muscles are intact. Pupils are equal, round and reactive to light and accommodation. Ears: No lesions. Nose appeared normal. Throat: No exudate or erythema. NECK: Supple. No JVD, no carotid bruit. No lymphadenopathy or thyromegaly. LUNGS: Diminished breath sounds. Clear to auscultation. Percussion note normal. Chest symmetrical. HEART: S1, S2, no S3. No murmurs. No cyanosis or clubbing. No ascites. Pulses: Dorsalis pedis and posterior tibial pulses +1 to +2 both sides. ABDOMEN: Soft. Non-tender. Bowel sounds active. No CVA tenderness. No mass felt. EXTREMITIES: Trace bilateral leg edema. Drying open area on left leg with improving erythema. Full range of motion of all extremities, equal. NEUROLOGIC: No focal deficit. Cranial nerves II through XII are grossly intact. No headache. No double vision. SKIN: Not dry. Intact. Turgor-normal. LYMPHATIC: No palpable lymph nodes/no lymphedema. MUSCULOSKELETAL: Normal joints with no swelling. Muscle tone is normal. LAB REVIEW: 02/23/22 04:51 02/23/22 04:51 02/23/22 04:51: Sodium 138.1, Potassium 4.41, Chloride 100.4, Carbon Dioxide 33.4 H, Anion Gap 8.71, BUN 21.5 H, Creatinine 1.11 H, Estimated GFR (MDRD) 64 .00, BUN/Creatinine Ratio 19.36, Glucose 102.9, Calcium 8.47, Total Bilirubin 0.66, AST 30.3, ALT 15.2, Alkaline Phosphatase 123.0 H, Total Protein 6.78, Albumin 3.44 L, Globulin 3.34, Albumin/Globulin Ratio 1.02 02/23/22 04:51: WBC 5.70, RBC 4.16 L, Hgb 12.8 L, Hct 38.9 L, MCV 93.5, MCH 30.8, MCHC 32.9, RDW Coeff of Bill 14.2, Plt Count 234, Immature Gran % (Auto) 0.2, Neut % (Auto) 68.2, Lymph % (Auto) 16.7, [place] % (Auto) 8.9, Eos % (Auto) 5.3, Baso % (Auto) 0.7, Neut # (Auto) 3.9, Lymph # (Auto) 1.0, [place] # (Auto) 0.5, Eos # (Auto) 0.3, Baso # (Auto) 0.0, Immature Gran # (Auto) 0.0 ASSESSMENT: Please see below. 1. Bilateral leg edema 2. Left lower extremity cellulitis 3. L1 and L2 Fractures PLAN: 1. Lasix 40mg IV today then start Lasix 40mg PO tomorrow 2. 2D echo 3. Continue IV antibiotics 4. Keep legs elevated Plan and coordination of the patient's care discussed in the presence of Crew Boat Operator and nurse. SCRIBED BY: BESSY TRAN Outboard Motor Tester scribed while in presence of service performed by Dr. Goddard/Rajwinder Jackson APRN on 02/23/22 ([id number])
[2022-02-23] MEDS: FLOMAX PO SCH (09:44)
[2022-02-23] MEDS: COREG PO SCH (09:44)
[2022-02-23] MEDS: MICRO-K CAP PO SCH (09:45)
[2022-02-23] MEDS: BACTROBAN TP SCH ×2 (09:45→20:42)
[2022-02-23] MEDS: COLACE PO SCH ×2 (09:45→20:41)
[2022-02-23] MEDS: MIRALAX PO SCH (09:46)
[2022-02-23] MEDS: SYMBICORT 160-4.5 MCG INHALER IH SCH ×2 (09:46→20:42)
[2022-02-23] MEDS: DOXY-100 100 MG in SODIUM CHLORIDE 100ML 100 ML IV SCH ×2 (12:53→21:31)
[2022-02-23] MEDS ORDERED: LASIX IVP ONE (14:50)
[2022-02-23] MEDS ORDERED: ROCEPHIN 1 GM/50 ML D5W 1 GM/50 ML BAG IV SCH (21:00)
[2022-02-24 05:05] LABS: BASOPHILS # (AUTO) 0.1 K/uL (0-0.2); BASOPHILS % (AUTO) 1.1 % (0.0-3.0); EOSINOPHILS # (AUTO) 0.3 K/ul (0.0-0.7); EOSINOPHILS % (AUTO) 7.2 % (0.0-7.0); HEMATOCRIT 39.6 % (42.0-52.0); HEMOGLOBIN 12.9 g/dl (14.0-18.0); IMMATURE GRANULOCYTE % (AUTO) 0.4 % (0.0-5.0); LYMPHOCYTES # (AUTO) 0.9 K/uL (0.60-3.4); LYMPHOCYTES % (AUTO) 19.7 (10.0-50.0); MEAN CORPUSCULAR HEMOGLOBIN 30.5 pg (27.0-31.0); MEAN CORPUSCULAR HGB CONC 32.6 (31.8-35.4); MEAN CORPUSCULAR VOLUME 93.6 fl (80.0-94.0); MONOCYTES # (AUTO) 0.5 K/uL (0.4-2.0); MONOCYTES % (AUTO) 10.6 (0-10); NEUTROPHILS # (AUTO) 2.9 K/ul (2.0-6.9); PLATELET COUNT 244 10^3/uL (140-440); RDW COEFFICIENT OF VARIATION 14.1 % (11.6-14.8); RED BLOOD COUNT 4.23 10^6/ul (4.70-6.10); WHITE BLOOD COUNT 4.73 K/ul (4.2-10.2)
[2022-02-24 05:17] LABS: ALANINE AMINOTRANSFERASE 14.1 U/L (0-50); ALBUMIN 3.5 g/dL (3.5-5.0); ALKALINE PHOSPHATASE 126.7 U/L (56-119); ASPARTATE AMINO TRANSFERASE 32.5 U/L (17-59); BILIRUBIN,TOTAL 0.51 mg/dL (0.2-1.3); BLOOD UREA NITROGEN 25.7 mg/dL (9-20); CALCIUM 8.53 mg/dL (8.4-10.2); CARBON DIOXIDE 35.3 mmol/L (22-30.0); CHLORIDE 98.6 mmol/L (98-107); CREATININE 1.15 mg/dL (0.60-1.10); GLUCOSE 102.9 mg/dL (74-106); POTASSIUM 4.77 mmol/L (3.5-5.1); SODIUM 136.3 mmol/L (134.5-145); TOTAL PROTEIN 6.77 g/dL (6.3-8.2)
[2022-02-24] MEDS ORDERED: LASIX IVP SCH (06:30)
[2022-02-24] MEDS ORDERED: DULCOLAX RC ONE (07:57)
[2022-02-24] MEDS: DOXYCYCLINE HYCLATE PO SCH ×2 (09:33→20:35)
[2022-02-24] MEDS: MIRALAX PO SCH (09:33)
[2022-02-24] MEDS: COLACE PO SCH ×2 (09:33→20:36)
[2022-02-24] MEDS: MICRO-K CAP PO SCH (09:34)
[2022-02-24] MEDS: FLOMAX PO SCH (09:34)
[2022-02-24] MEDS: COREG PO SCH (09:34)
[2022-02-24] MEDS: SYMBICORT 160-4.5 MCG INHALER IH SCH ×2 (09:40→20:40)
[2022-02-24] MEDS: BACTROBAN TP SCH (09:40)
--- NOTE | 2022-02-24 09:58 | PCM.PROG ---
Attending Provider: ATTENDING PROVIDER: Dr. VIBHA GODDARD DATE OF SERVICE: 02/24/22 SUBJECTIVE: This 81 year old /WHITE M was hospitalized 02/21/22 with bilateral dependent leg edema with possible cellulitis. Condition has improved. Leg edema is less. Scaling has flattened. REVIEW OF SYSTEMS: CONSTITUTIONAL: No night sweats. No fatigue, malaise, lethargy. No fever or c hills. HEENT: Eyes: No visual changes. No eye pain. No eye discharge. ENT: No runny nose. No epistaxis. No sinus pain. No odynophagia. No congestion. RESPIRATORY: No cough, no congestion. No hemoptysis. No shortness of breath. CARDIOVASCULAR: No angina symptoms. No CHF symptoms. No atypical chest pain for CAD. No palpitations. No orthopnea.. GASTROINTESTINAL: No abdominal pain. No nausea or vomiting. No diarrhea or constipation. No hematemesis. No hematochezia. GENITOURINARY: No urgency. No frequency. No dysuria. No hematuria. No obstructive symptoms. No discharge. No pain. No significant abnormal bleeding. MUSCULOSKELETAL: No musculoskeletal pain; no joint swelling. NEUROLOGICAL: Awake, alert, oriented to time, place and person. No headache. No neck pain. No syncope. No seizures. No dizziness. PSYCHIATRIC: Not anxious. No depression. No suicidal thoughts. No homicidal thoughts. SKIN: No rash. No lesions. No wounds. ENDOCRINE: No unexplained weight loss. No weight gain. HEMATOLOGIC/LYMPHATIC: No anemia. No purpura. No petechiae. No prolonged or excessive bleeding. No palpable lymph nodes. PHYSICAL EXAMINATION: GENERAL: The patient is awake, alert and oriented, lying/sitting in bed in no distress. VITAL SIGNS: Temperature 98.1 F, Pulse 58, Respiratory Rate 18, BP 114/65, Pulse Ox 94% HEENT: Head normocephalic, atraumatic. Eyes: Extraocular muscles are intact. Pupils are equal, round and reactive to light and accommodation. Ears: No lesions. Nose appeared normal. Throat: No exudate or erythema. NECK: Supple. No JVD, no carotid bruit. No lymphadenopathy or thyromegaly. LUNGS: Clear to auscultation. Percussion note normal. Chest symmetrical. HEART: S1, S2, no S3. No murmurs. No cyanosis or clubbing. No ascites. Pulses: Dorsalis pedis and posterior tibial pulses +1 to +2 both sides. ABDOMEN: Soft. Non-tender. Bowel sounds active. No CVA tenderness. No mass felt. EXTREMITIES: Both lower leg has dark pigmentation. No signs of infection. Still 1+ pitting edema, chronic. Full range of motion of all extremities, equal. NEUROLOGIC: No focal deficit. Cranial nerves II through XII are grossly intact. No headache, no double vision or headache. SKIN: Warm and dry. Intact. Turgor-normal. LYMPHATIC: No palpable lymph nodes/no lymphedema. MUSCULOSKELETAL: Normal joints with no swelling. Muscle tone is normal. LAB REVIEW: 02/24/22 04:48 02/24/22 04:48 02/24/22 04:48: Sodium 136.3, Potassium 4.77, Chloride 98.6, Carbon Dioxide 35.3 H, Anion Gap 7.17, BUN 25.7 H, Creatinine 1.15 H, Estimated GFR (MDRD) 61.00, BUN/Creatinine Ratio 22.34, Glucose 102.9, Calcium 8.53, Total Bilirubin 0.51, AST 32.5, ALT 14.1, Alkaline Phosphatase 126.7 H, Total Protein 6.77, Albumin 3.50, Globulin 3.27, Albumin/Globulin Ratio 1.07 02/24/22 04:48: WBC 4.73, RBC 4.23 L, Hgb 12.9 L, Hct 39.6 L, MCV 93.6, MCH 30.5, MCHC 32.6, RDW Coeff of Bill 14.1, Plt Count 244, Immature Gran % (Auto) 0.4, Neut % (Auto) 61.0, Lymph % (Auto) 19.7, [place] % (Auto) 10.6 H, Eos % (Auto) 7.2 H, Baso % (Auto) 1.1, Neut # (Auto) 2.9, Lymph # (Auto) 0.9, [place] # (Auto) 0.5, Eos # (Auto) 0.3, Baso # (Auto) 0.1, Immature Gran # (Auto) 0.0 ASSESSMENT: Please see below. 1. Cellulitis with bilateral leg edema, resolving 2. MRSA PLAN: 1. Continue Doxycycline and Rocephin 2. The patient to undergo echo to evaluate LV function CONDITION: Stable. Plan and coordination of the patient's care discussed in the presence of Commodity Management Specialist and nurse. SCRIBED BY: BESSY TRAN Supervising Architect scribed while in presence of service performed by Dr. VIBHA GODDARD on 02/24/22 ([id number])
--- NOTE | 2022-02-24 11:22 | PN ---
DATE OF SERVICE: 02/23/22 SUBJECTIVE: The patient was seen and examined with Nurse Practitioner. The patient's legs looks a lot better. The scab have been drying up. No active infection noted. The redness is much less. Mostly the redness is from hemosiderin pigmentation of both lower legs from chronic edema with some extravasation of blood. I don't think that there is any infection. The patient will have an echocardiogram done. He probably maybe discharged just a couple of days. CONDITION: Stable. TIME SPENT: More than 30 minutes. Plan and coordination of the patient's care discussed in the presence of nurse. TONIE
[2022-02-24] MEDS: DOXY-100 100 MG in SODIUM CHLORIDE 100ML 100 ML IV SCH (14:16)
--- NOTE | 2022-02-24 14:49 | PN ---
DATE OF SERVICE: 02/22/22 SUBJECTIVE: 81 year old white male hospitalized with bilateral leg edema and cellulitis. The patient has this condition going on for two to three months but unable to do anything because of his who is handicapped and bed ridden with muscular muscular sclerosis. He bought several things from [employer] and tried it on the legs. Eventually and reluctantly he agreed to come to the hospital and put his in the [place] [facility]. REVIEW OF SYSTEMS: CONSTITUTIONAL: No night sweats. No fatigue, malaise, lethargy. No fever or chills. HEENT: Eyes: No visual changes. No eye pain. No eye discharge. ENT: No runny nose. No epistaxis. No sinus pain. No sore throat. No odynophagia. No congestion. RESPIRATORY: No cough, no congestion. No hemoptysis. No shortness of breath. CARDIOVASCULAR: No angina symptoms. No CHF symptoms. No atypical chest pain for CAD. No palpitations. No PND. No orthopnea. GASTROINTESTINAL: No abdominal pain. No nausea or vomiting. No diarrhea or constipation. No hematemesis. No hematochezia. GENITOURINARY: No urgency. No frequency. No dysuria. No hematuria. No obstructive symptoms. No discharge. No pain. No significant abnormal bleeding. MUSCULOSKELETAL: No musculoskeletal pain; no joint swelling. NEUROLOGICAL: No headache. No neck pain. No syncope. No seizures. No dizziness. PSYCHIATRIC: Not anxious. No depression. No suicidal thoughts. No homicidal thoughts. SKIN: No rash. No lesions. No wounds. ENDOCRINE: No unexplained weight loss. No weight gain. HEMATOLOGIC/LYMPHATIC: No anemia. No purpura. No petechiae. No prolonged or excessive bleeding. No palpable lymph nodes. PHYSICAL EXAMINATION: VITAL SIGNS: Temperature 97.5, pulse 56, respiratory rate 18, blood pressure 150/72 and pulse ox 99% on room air. HEENT: Head normocephalic, atraumatic. Eyes: Extraocular muscles are intact. Pupils are equal, round and reactive to light and accommodation. Ears: No lesions. Nose appeared normal. Throat: No exudate or erythema. NECK: Supple. No JVD, no carotid bruit. No lymphadenopathy or thyromegaly. LUNGS: Clear to auscultation. Percussion note normal. Chest symmetrical. HEART: S1, S2, no S3. No murmurs. No cyanosis or clubbing. No ascites. Pulses: Dorsalis pedis and posterior tibial pulses +1 to +2 bilaterally. ABDOMEN: Soft. Nontender. Bowel sounds active. No CVA tenderness. No mass felt. EXTREMITIES: Edema much less. Both lower legs are red, inflamed with scales. No active infection. Full range of motion of all extremities, equal. NEUROLOGIC: No focal deficit. Cranial nerves II through XII are grossly intact. No headache. No double vision. SKIN: Not dry. Intact. Turgor - normal. LYMPHATIC: No palpable lymph nodes/no lymphedema. MUSCULOSKELETAL: Normal joints with no swelling. Muscle tone is normal. LABS: Hgb 11.7, hct 35m, WBC 4,700 normal differential, creatinine 1.1, BUN 22, potassium 3.4 ASSESSMENT: 1. Bilateral leg edema with cellulitis PLAN: 1. Continue to give IV Diuretic Lasix 2. Elevate the legs 3. Continue antibiotics Clindamycin 4. The pharmacy thought that there was no need for Vancomycin 5. The patient was explained about leg edema especially dependent leg edema and what to do about it. 6. K-Tab to be given 20meq twice a day CONDITION: Otherwise stable. We may end up doing echo if it is not done in past 1 year to evaluate LV function. The patient is noncompliant of all instructions that is being given to prevent leg edema. He is just helpless because he has to take care of his disabled, handicapped requiring practically help with all activity of daily living. TIME SPENT: More than 30 minutes. Plan and coordination of the patient's care discussed in the presence of nurse. TONIE
[2022-02-24] MEDS: XANAX PO PRN (22:01)
[2022-02-25 05:16] LABS: BASOPHILS % (AUTO) 0.8 % (0.0-3.0); EOSINOPHILS # (AUTO) 0.3 K/ul (0.0-0.7); EOSINOPHILS % (AUTO) 6.4 % (0.0-7.0); HEMATOCRIT 40.5 % (42.0-52.0); HEMOGLOBIN 13.1 g/dl (14.0-18.0); IMMATURE GRANULOCYTE % (AUTO) 0.2 % (0.0-5.0); LYMPHOCYTES # (AUTO) 1.1 K/uL (0.60-3.4); LYMPHOCYTES % (AUTO) 20.3 (10.0-50.0); MEAN CORPUSCULAR HEMOGLOBIN 30.3 pg (27.0-31.0); MEAN CORPUSCULAR HGB CONC 32.3 (31.8-35.4); MEAN CORPUSCULAR VOLUME 93.8 fl (80.0-94.0); MONOCYTES # (AUTO) 0.5 K/uL (0.4-2.0); MONOCYTES % (AUTO) 10.2 (0-10); NEUTROPHILS # (AUTO) 3.2 K/ul (2.0-6.9); NEUTROPHILS % (AUTO) 62.1 % (42.2-75.2); PLATELET COUNT 250 10^3/uL (140-440); RDW COEFFICIENT OF VARIATION 14.3 % (11.6-14.8); RED BLOOD COUNT 4.32 10^6/ul (4.70-6.10); WHITE BLOOD COUNT 5.18 K/ul (4.2-10.2)
[2022-02-25 05:29] LABS: ALANINE AMINOTRANSFERASE 15.6 U/L (0-50); ALBUMIN 3.59 g/dL (3.5-5.0); ALKALINE PHOSPHATASE 126.1 U/L (56-119); ASPARTATE AMINO TRANSFERASE 33.4 U/L (17-59); BILIRUBIN,TOTAL 0.68 mg/dL (0.2-1.3); BLOOD UREA NITROGEN 27.6 mg/dL (9-20); CALCIUM 8.72 mg/dL (8.4-10.2); CARBON DIOXIDE 34.9 mmol/L (22-30.0); CHLORIDE 97.8 mmol/L (98-107); CREATININE 1.17 mg/dL (0.60-1.10); GLUCOSE 98.6 mg/dL (74-106); POTASSIUM 5.14 mmol/L (3.5-5.1); SODIUM 137.4 mmol/L (134.5-145); TOTAL PROTEIN 6.9 g/dL (6.3-8.2)
[2022-02-25] MEDS: LASIX TAB PO SCH (05:41)
[2022-02-25] MEDS: MICRO-K CAP PO SCH (07:42)
[2022-02-25] MEDS: DOXYCYCLINE HYCLATE PO SCH ×2 (08:42→20:21)
[2022-02-25] MEDS: FLOMAX PO SCH (08:42)
[2022-02-25] MEDS: COLACE PO SCH ×2 (08:42→20:21)
[2022-02-25] MEDS: MIRALAX PO SCH (08:43)
[2022-02-25] MEDS: COREG PO SCH (08:43)
[2022-02-25] MEDS: SYMBICORT 160-4.5 MCG INHALER IH SCH ×2 (08:45→21:50)
[2022-02-25] MEDS: XANAX PO PRN (21:50)
[2022-02-26 05:03] LABS: BASOPHILS # (AUTO) 0.1 K/uL (0-0.2); EOSINOPHILS # (AUTO) 0.4 K/ul (0.0-0.7); EOSINOPHILS % (AUTO) 7.1 % (0.0-7.0); HEMATOCRIT 39.3 % (42.0-52.0); HEMOGLOBIN 12.8 g/dl (14.0-18.0); IMMATURE GRANULOCYTE % (AUTO) 0.2 % (0.0-5.0); LYMPHOCYTES # (AUTO) 1.2 K/uL (0.60-3.4); LYMPHOCYTES % (AUTO) 23.7 (10.0-50.0); MEAN CORPUSCULAR HEMOGLOBIN 30.8 pg (27.0-31.0); MEAN CORPUSCULAR HGB CONC 32.6 (31.8-35.4); MEAN CORPUSCULAR VOLUME 94.5 fl (80.0-94.0); MONOCYTES # (AUTO) 0.5 K/uL (0.4-2.0); MONOCYTES % (AUTO) 10.1 (0-10); NEUTROPHILS % (AUTO) 57.9 % (42.2-75.2); PLATELET COUNT 231 10^3/uL (140-440); RDW COEFFICIENT OF VARIATION 14.4 % (11.6-14.8); RED BLOOD COUNT 4.16 10^6/ul (4.70-6.10); WHITE BLOOD COUNT 5.23 K/ul (4.2-10.2)
[2022-02-26 05:16] LABS: ALANINE AMINOTRANSFERASE 15.4 U/L (0-50); ALBUMIN 3.5 g/dL (3.5-5.0); BILIRUBIN,TOTAL 0.45 mg/dL (0.2-1.3); BLOOD UREA NITROGEN 32.8 mg/dL (9-20); CALCIUM 8.25 mg/dL (8.4-10.2); CARBON DIOXIDE 32.3 mmol/L (22-30.0); CREATININE 1.19 mg/dL (0.60-1.10); GLUCOSE 95.9 mg/dL (74-106); POTASSIUM 4.61 mmol/L (3.5-5.1); SODIUM 135.8 mmol/L (134.5-145); TOTAL PROTEIN 6.7 g/dL (6.3-8.2)
[2022-02-26] MEDS: LASIX TAB PO SCH (05:40)
[2022-02-26] MEDS: SYMBICORT 160-4.5 MCG INHALER IH SCH ×2 (08:25→20:16)
[2022-02-26] MEDS: COLACE PO SCH ×2 (08:26→20:13)
[2022-02-26] MEDS: MIRALAX PO SCH (08:26)
[2022-02-26] MEDS: COREG PO SCH (08:26)
[2022-02-26] MEDS: FLOMAX PO SCH (08:26)
[2022-02-26] MEDS: DOXYCYCLINE HYCLATE PO SCH ×2 (08:26→20:13)
[2022-02-26] MEDS: MICRO-K CAP PO SCH (08:26)
[2022-02-26] MEDS: XANAX PO PRN (21:59)
[2022-02-27 04:58] LABS: BASOPHILS # (AUTO) 0.1 K/uL (0-0.2); EOSINOPHILS # (AUTO) 0.4 K/ul (0.0-0.7); EOSINOPHILS % (AUTO) 7.1 % (0.0-7.0); HEMATOCRIT 37.5 % (42.0-52.0); HEMOGLOBIN 12.3 g/dl (14.0-18.0); IMMATURE GRANULOCYTE % (AUTO) 0.2 % (0.0-5.0); LYMPHOCYTES # (AUTO) 1.4 K/uL (0.60-3.4); LYMPHOCYTES % (AUTO) 28.2 (10.0-50.0); MEAN CORPUSCULAR HGB CONC 32.8 (31.8-35.4); MEAN CORPUSCULAR VOLUME 94.5 fl (80.0-94.0); MONOCYTES # (AUTO) 0.6 K/uL (0.4-2.0); MONOCYTES % (AUTO) 11.4 (0-10); NEUTROPHILS # (AUTO) 2.6 K/ul (2.0-6.9); NEUTROPHILS % (AUTO) 52.1 % (42.2-75.2); PLATELET COUNT 235 10^3/uL (140-440); RDW COEFFICIENT OF VARIATION 14.2 % (11.6-14.8); RED BLOOD COUNT 3.97 10^6/ul (4.70-6.10)
[2022-02-27 05:10] LABS: ALANINE AMINOTRANSFERASE 14.4 U/L (0-50); ALBUMIN 3.37 g/dL (3.5-5.0); ALKALINE PHOSPHATASE 117.7 U/L (56-119); ASPARTATE AMINO TRANSFERASE 27.9 U/L (17-59); BILIRUBIN,TOTAL 0.41 mg/dL (0.2-1.3); CALCIUM 8.43 mg/dL (8.4-10.2); CARBON DIOXIDE 30.1 mmol/L (22-30.0); CHLORIDE 100.5 mmol/L (98-107); CREATININE 1.29 mg/dL (0.60-1.10); GLUCOSE 95.9 mg/dL (74-106); POTASSIUM 4.36 mmol/L (3.5-5.1); SODIUM 136.1 mmol/L (134.5-145); TOTAL PROTEIN 6.42 g/dL (6.3-8.2)
[2022-02-27 05:14] VITALS: BP 158/81; TEMP 98.2
[2022-02-27] MEDS: LASIX TAB PO SCH (05:53)
[2022-02-27] MEDS: MIRALAX PO SCH (08:54)
[2022-02-27] MEDS: FLOMAX PO SCH (08:55)
[2022-02-27] MEDS: COLACE PO SCH (08:55)
[2022-02-27] MEDS: DOXYCYCLINE HYCLATE PO SCH (08:55)
[2022-02-27] MEDS: COREG PO SCH (08:55)
[2022-02-27] MEDS: MICRO-K CAP PO SCH ×2 (08:56→09:04)
[2022-02-27] MEDS: SYMBICORT 160-4.5 MCG INHALER IH SCH (09:05)
--- NOTE | 2022-02-27 09:12 | PCM.PROG ---
Attending Provider: ATTENDING PROVIDER: Dr. VIBHA GODDARD This patient is seen with Rajwinder Jackson, Nurse Practitioner. DATE OF SERVICE: 02/27/22 SUBJECTIVE: This 81 year old /WHITE M was hospitalized 02/21/22. Leg edema and redness significantly improved. He has dryness and flaking. Back pain is c ontrolled with [place]. Cultures were positive for MRSA. He is ready for discharge. Dr. Goddard did an echo. REVIEW OF SYSTEMS: CONSTITUTIONAL: No night sweats. No fatigue, malaise, lethargy. No fever or chills. HEENT: Eyes: No visual changes. No eye pain. No eye discharge. ENT: No runny nose. No epistaxis. No sinus pain. No odynophagia. No congestion. RESPIRATORY: No cough, no congestion. No hemoptysis. No shortness of breath. CARDIOVASCULAR: No angina symptoms. No CHF symptoms. No atypical chest pain for CAD. No palpitations. No orthopnea.. GASTROINTESTINAL: No abdominal pain. No nausea or vomiting. No diarrhea or constipation. No hematemesis. No hematochezia. GENITOURINARY: No urgency. No frequency. No dysuria. No hematuria. No obstructive symptoms. No discharge. No pain. No significant abnormal bleeding. MUSCULOSKELETAL: No musculoskeletal pain; no joint swelling. Back pain. Leg pain. NEUROLOGICAL: Awake, alert, oriented to time, place and person. No headache. No neck pain. No syncope. No seizures. No dizziness. PSYCHIATRIC: Not anxious. No depression. No suicidal thoughts. No homicidal thoughts. SKIN: No rash. No lesions. No wounds. ENDOCRINE: No unexplained weight loss. No weight gain. HEMATOLOGIC/LYMPHATIC: No anemia. No purpura. No petechiae. No prolonged or excessive bleeding. No palpable lymph nodes. PHYSICAL EXAMINATION: GENERAL: The patient is awake, alert and oriented, sitting in bed in no distress. VITAL SIGNS: Temperature 98.2 F, Pulse 60, Respiratory Rate 18, BP 158/81, Pulse Ox 97% HEENT: Head normocephalic, atraumatic. Eyes: Extraocular muscles are intact. Pupils are equal, round and reactive to light and accommodation. Ears: No lesions. Nose appeared normal. Throat: No exudate or erythema. NECK: Supple. No JVD, no carotid bruit. No lymphadenopathy or thyromegaly. LUNGS: Clear to auscultation. Percussion note normal. Chest symmetrical. HEART: S1, S2, no S3. No murmurs. No cyanosis or clubbing. No ascites. Pulses: Dorsalis pedis and posterior tibial pulses +1 to +2 both sides. ABDOMEN: Soft. Non-tender. Bowel sounds active. No CVA tenderness. No mass felt. EXTREMITIES: No edema. Full range of motion of all extremities, equal. Stasis dermatitis. Two open areas on bilateral lower extremities with scabbing and minima erythema. NEUROLOGIC: No focal deficit. Cranial nerves II through XII are grossly intact. No headache. No double vision. SKIN: Not dry. Intact. Turgor-normal. LYMPHATIC: No palpable lymph nodes/no lymphedema. MUSCULOSKELETAL: Normal joints with no swelling. Muscle tone is normal. LAB REVIEW: 02/27/22 04:40 02/27/22 04:40 02/27/22 04:40: Sodium 136.1, Potassium 4.36, Chloride 100.5, Carbon Dioxide 30.1 H, Anion Gap 9.86, BUN 36.0 H, Creatinine 1.29 H, Estimated GFR (MDRD) 53.00, BUN/Creatinine Ratio 27.90, Glucose 95.9, Calcium 8.43, Total Bilirubin 0.41, AST 27.9, ALT 14.4, Alkaline Phosphatase 117.7, Total Protein 6.42, Albumin 3.37 L, Globulin 3.05, Albumin/Globulin Ratio 1.10 02/27/22 04:40: WBC 4.90, RBC 3.97 L, Hgb 12.3 L, Hct 37.5 L, MCV 94.5 H, MCH 31.0, MCHC 32.8, RDW Coeff of Bill 14.2, Plt Count 235, Immature Gran % (Auto) 0.2, Neut % (Auto) 52.1, Lymph % (Auto) 28.2, [place] % (Auto) 11.4 H, Eos % (Auto) 7.1 H, Baso % (Auto) 1.0, Neut # (Auto) 2.6, Lymph # (Auto) 1.4, [place] # (Auto) 0.6, Eos # (Auto) 0.4, Baso # (Auto) 0.1, Immature Gran # (Auto) 0.0 ASSESSMENT: Please see below. 1. Bilateral leg edema 2. Left lower extremity cellulitis 3. Chronic kidney disease 4. Avulsion fracture L1 and L2 5. History of falls PLAN: 1. Discharge home 2. [place] 7.5mg PO BID 3. Doxycycline 100mg BID for 5 days 4. Change Lasix and Potassium to daily 5. Bactroban BID for two weeks 6. Keep legs elevated. Plan and coordination of the patient's care discussed in the presence of [employer]per and nurse. SCRIBED BY: Kayy HARDIN scribed while in presence of service performed by Dr. Goddard/Rajwinder Jackson APRN on 02/27/22 (1935)
[2022-02-27] MEDS ORDERED: PNEUMOVAX 23 IM ONE ×2 (11:22→14:00)
--- NOTE | 2022-02-27 11:30 | ECHO2D ---
Date of Exam: 02/25/2022 Ordering Physician: DR. VIBHA GODDARD Room #: [id number] Reason for Echo: SOB, LEG EDEMA, HTN M-Mode Normal Adult Results LV Dimensions Normal Adult Results AoV Opening excursions >1.6 >1.6 LVEDD-base- 3.5-5.8 5.3 Ao root dimensions 2.0-3.7 3.6 LVESD-base- 3.1-4.6 L. Atrium dimensions 1.9-3.8 4.3 Post. Wall thickness 0.8-1.1 1.3 IV septum (thickness) 0.7-1.2 1.5 Post. Wall excursion 0.72-1.3 NORMAL Septal motion NORMAL Systolic motion R. Ventricular cavity 1.5-2.0 NORMAL LVEF 60% 62% Paradoxical septal wall motion NORMAL 2-D : 2-D M Mode Echocardiogram was performed using apical four chamber and left parasternal long and short axis views. Mitral, tricuspid and aortic valves appear to be normal. Contractility of the left ventricle seems to be normal, so is the cavity size. ENLARGED LEFT ATRIAL CAVITY SIZE. Aortic root appears to be normal. There is no pericardial effusion. There is no thrombus noted in the left ventricle or left atrial cavity. M-MODE: MV: NORMAL AV: NORMAL TV: NORMAL PV: CHAMBER SIZE: ENLARGED LEFT ATRIAL CAVITY WALL MOTION: NORMAL PERICARDIUM: NORMAL INTERPRETATION: 1. LEFT VENTRICLE HYPERTROPHY WITH ENLARGED LEFT ATRIAL CAVITY 2. NORMAL VALVES 3. NORMAL LEFT VENTRICLE CONTRACTILITY UNCHANGED ECHO 10/2019 [facility]
[2022-02-27] MEDS ORDERED: PNEUMOVAX 23 ONE (12:53)
--- NOTE | 2022-02-28 10:32 | PN ---
DATE OF SERVICE: 02/27/22 SUBJECTIVE: The patient was seen and examined with the Nurse Practitioner. The patient's condition has improved. The leg edema and cellulitis has practically resolved. Pigmentation still there with some scabs that are dried up with no infection. Advised to keep the legs up while he is sitting above his hips. Continue the diuretic and cut down on salt intake. The patient's prognosis for dependent leg edema and the problems that he came in with is not good considering the patient's who is totally disabled for many years needs a lot of attention. TIME SPENT: More than 30 minutes. Plan and coordination of the patient's care discussed in the presence of nurse. TONIE
--- NOTE | 2022-02-28 10:33 | PN ---
02/21/22: Level 5 02/22/22: Intermediate 02/23/22: Intermediate 02/24/22: intermediate 02/25/22: Intermediate 02/26/22: Intermediate 02/27/22: D as in discharge MTDD
--- NOTE | 2022-02-28 11:54 | PN ---
DATE OF SERVICE: 02/26/22 SUBJECTIVE: 81 year white male hospitalized with bilateral leg edema and cellulitis. The patient's condition has improved. His leg edema has practically resolved. No infection noted, dryness with the scabs. Pigmented areas in both lower extremity noted. REVIEW OF SYSTEMS: CONSTITUTIONAL: No night sweats. No fatigue, malaise, lethargy. No fever or chills. HEENT: Eyes: No visual changes. No eye pain. No eye discharge. ENT: No runny nose. No epistaxis. No sinus pain. No sore throat. No odynophagia. No congestion. RESPIRATORY: No cough, no congestion. No hemoptysis. No shortness of breath. CARDIOVASCULAR: No angina symptoms. No CHF symptoms. No atypical chest pain for CAD. No palpitations. No PND. No orthopnea. GASTROINTESTINAL: No abdominal pain. No nausea or vomiting. No diarrhea or constipation. No hematemesis. No hematochezia. GENITOURINARY: No urgency. No frequency. No dysuria. No hematuria. No obstructive symptoms. No discharge. No pain. No significant abnormal bleeding. MUSCULOSKELETAL: No musculoskeletal pain; no joint swelling. NEUROLOGICAL: No headache. No neck pain. No syncope. No seizures. No dizziness. PSYCHIATRIC: Not anxious. No depression. No suicidal thoughts. No homicidal thoughts. SKIN: No rash. No lesions. No wounds. ENDOCRINE: No unexplained weight loss. No weight gain. HEMATOLOGIC/LYMPHATIC: No anemia. No purpura. No petechiae. No prolonged or excessive bleeding. No palpable lymph nodes. PHYSICAL EXAMINATION: GENERAL: The patient is oriented to time, place and person. VITAL SIGNS: Temperature 98.1, pulse 58 , respiratory rate 16, blood pressure 127/71 and pulse ox 96%. HEENT: Head normocephalic, atraumatic. Eyes: Extraocular muscles are intact. Pupils are equal, round and reactive to light and accommodation. Ears: No lesions. Nose appeared normal. Throat: No exudate or erythema. NECK: Supple. No JVD, no carotid bruit. No lymphadenopathy or thyromegaly. LUNGS: Decreased breath sounds but clear to auscultation. Percussion note normal. Chest symmetrical. HEART: S1, S2, no S3. No murmurs. No cyanosis or clubbing. No ascites. Pulses: Dorsalis pedis and posterior tibial pulses +1 bilaterally. ABDOMEN: Soft. Nontender. Bowel sounds active. No CVA tenderness. No mass felt. EXTREMITIES: Lower half of the leg pigmented with chronic edema. Hemosiderin pigmentation with extravasation of blood from edema. No Cellulitis noted. Scabs are drying up or already dried up. No active evidence of any cellulitis. Full range of motion of all extremities, equal. NEUROLOGIC: No focal deficit. Cranial nerves II through XII are grossly intact. No headache. No double vision. SKIN: Not dry. Intact. Turgor - normal. LYMPHATIC: No palpable lymph nodes/no lymphedema. MUSCULOSKELETAL: Normal joints with no swelling. Muscle tone is normal. ASSESSMENT: 1. Bilateral leg edema with cellulitis.Cellulitis seems to have resolved and edema seems to have resolved also. 2. Pigmentation with superficial circulation. PLAN: 1. The patient explained about how to take care of both legs and feet and ankles. 2. Advised to cut down on salt intake 3. Take diuretic regularly 4. Elevate the legs higher than the hip The patient's problem is that he is taking care of his bedridden who is suffering from multiple sclerosis, diabetes and a lot of other medical problems. Practically for last 10 years or more. CONDITION: Stable. TIME SPENT: More than 30 minutes. Plan and coordination of the patient's care discussed in the presence of nurse. TONIE
--- NOTE | 2022-02-28 14:50 | PN ---
DATE OF SERVICE: 02/25/22 SUBJECTIVE: 81 year old white male hospitalized with bilateral leg edema, cellulitis. The patient has been taking care of bedridden sick for a number of years. He has put the in the [facility] while he is in the hospital. The patient's condition seems to have improved. REVIEW OF SYSTEMS: CONSTITUTIONAL: No night sweats. No fatigue, malaise, lethargy. No fever or chills. HEENT: Eyes: No visual changes. No eye pain. No eye discharge. ENT: No runny nose. No epistaxis. No sinus pain. No sore throat. No odynophagia. No congestion. RESPIRATORY: No cough, no congestion. No hemoptysis. No shortness of breath. CARDIOVASCULAR: No angina symptoms. No CHF symptoms. No atypical chest pain for CAD. No palpitations. No PND. No orthopnea. GASTROINTESTINAL: No abdominal pain. No nausea or vomiting. No diarrhea or constipation. No hematemesis. No hematochezia. GENITOURINARY: No urgency. No frequency. No dysuria. No hematuria. No obstructive symptoms. No discharge. No pain. No significant abnormal bleeding. MUSCULOSKELETAL: No musculoskeletal pain; no joint swelling. NEUROLOGICAL: No headache. No neck pain. No syncope. No seizures. No dizziness. PSYCHIATRIC: Not anxious. No depression. No suicidal thoughts. No homicidal thoughts. SKIN: No rash. No lesions. No wounds. ENDOCRINE: No unexplained weight loss. No weight gain. HEMATOLOGIC/LYMPHATIC: No anemia. No purpura. No petechiae. No prolonged or excessive bleeding. No palpable lymph nodes. PHYSICAL EXAMINATION: VITAL SIGNS: temperature 96.9, pulse 58, respiratory rate 18, blood pressure 155/76 and pulse ox 97%. HEENT: Head normocephalic, atraumatic. Eyes: Extraocular muscles are intact. Pupils are equal, round and reactive to light and accommodation. Ears: No lesions. Nose appeared normal. Throat: No exudate or erythema. NECK: Supple. No JVD, no carotid bruit. No lymphadenopathy or thyromegaly. LUNGS: Clear to auscultation. Percussion note normal. Chest symmetrical. HEART: S1, S2, no S3. No murmurs. No cyanosis or clubbing. No ascites. Pulses: Dorsalis pedis and posterior tibial pulses +1 to +2 bilaterally. ABDOMEN: Soft. Nontender. Bowel sounds active. No CVA tenderness. No mass felt. EXTREMITIES: Trace to 1+ nonpitting edema. Full range of motion of all extremities, equal. no evidence of infection. NEUROLOGIC: No focal deficit. Cranial nerves II through XII are grossly intact. No headache. No double vision. SKIN: Not dry. Intact. Turgor - normal. LYMPHATIC: No palpable lymph nodes/no lymphedema. MUSCULOSKELETAL: Normal joints with no swelling. Muscle tone is normal. LABS: hgb 13, hct 40, WBC 5,100 normal differential, creatinine 1.1, BUN 27, potassium 5.5 ASSESSMENT: 1. Bilateral leg edema seems to have resolved 2. Bilateral leg cellulitis seems to be resolving PLAN: 1. Education the patient about elevating the legs 2. Advised to take diuretic on regular basis 3. Advised to cut down on salt intake 4. Echo was done this morning which showed LVH with normal LV contractility and enlarged LA cavity unchanged from two years ago. TIME SPENT: More than 30 minutes. Plan and coordination of the patient's care discussed in the presence of nurse. TONIE
--- NOTE | 2022-04-07 13:35 | DS ---
DATE OF SERVICE: 02/27/22 FINAL DIAGNOSIS: 1. Bilateral leg edema 2. Left lower extremity cellulitis 3. Chronic kidney disease stage III 4. Avulsion fracture L1 and L2 5. Recurrent falls DISCHARGE INSTRUCTIONS: Discharge home today. Resume normal diet and activity as tolerated. It is important to keep lower legs elevated at a level above the hips, when sitting. Resume all other medications as taken prior to admission. Followup appointment scheduled for March 07 at 10:45am with Dr. Lemons's office. MEDICATIONS AT DISCHARGE: Alprazolam 0.25mg PO bedtime PRN Symbicort two puff inhalation BID Flomax 0.4mg PO daily Folic acid 5mg PO weekly Coreg 6.25mg PO daily NEW PRESCRIPTIONS: [place] 1 tab TWICE a day for pain (as needed) Doxycycline 100 mg TWICE a day for 5 days Lasix 40 mg ONCE a day, every AM Potassium 10 MEQ ONCE a day with Lasix Bactroban topical ointment TWICE a day for 2 weeks. Apply to both legs with clean hands. Miralax 17g ONCE a day to prevent constipation while taking [place]. Best to mix with juice. DISCONTINUED MEDICATIONS: Potassium Chloride Hydrocodone/acetaminophen Lasix DIET INSTRUCTIONS: As tolerated ACTIVITY: As tolerated LABS: Hgb 12.3, hct 37.5, plt count 235, WBC 4.9, Sodium 136, potassium 4.3, BUN 36,creatinine 1.29 HOSPITAL COURSE: 81 year old white male who was a direct admit from our office. He had presented in the office the day before had significant leg edema and redness on the left lower extremity. He stated that his legs were 3+ bilateral and had been swollen like this for several days. It was worsening. He had some serous drainage. He also recently fell and had some increased back pain. He had went to the ER for his fall which showed new avulsion fractures of L1 and L2. He was admitted and placed on Clindamycin 600mg IV Q 8 hours. Wound on the left lower extremity revealed positive MRSA. Due to the shortness we then switched the antibiotic to Doxycycline 100mg IV Q 12 hours and we administered IV Lasix 40mg for 2 days in a room. He had some significant urinary output. There were two open areas on his left lower extremity which we started using Bactroban and at home he had previously been doing Lasix only as needed. We placed him on Lasix 40mg PO daily along with some Potassium. His leg edema is significantly improved along the redness. 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 His renal function is stable, WBC is improved. We will discharge him home. He has Hydrocodone 7.5mg PO BID for back pain which has been working well for him in the hospital with recent avulsion fractures. He will go home on Doxycycline 100mg PO BID for the next 5 days. Continue the Bactroban twice a day for the next two weeks. Again he is will go home on Lasix and Potassium. Discharge TIME SPENT: More than 60 minutes. TONIE
== END 2022-02-27 13:15 | disposition home or self-care (01) | DRG 603 ==
LOC: LAB 14:07 → MEDSURG A 15:18
PROVIDERS: ADMIT Internal Medicine; ATTEND Internal Medicine
DX: Z79.899 Other long term (current) drug therapy; Z20.822 Contact with and (suspected) exposure to COVID-19; S32.009A Unspecified fracture of unspecified lumbar vertebra, initial encounter for closed fracture; M54.50 Low back pain, unspecified; B95.62 Methicillin resistant Staphylococcus aureus infection as the cause of diseases classified elsewhere; Z51.81 Encounter for therapeutic drug level monitoring; S36.892A Contusion of other intra-abdominal organs, initial encounter; M19.90 Unspecified osteoarthritis, unspecified site; M62.81 Muscle weakness (generalized); L03.116 Cellulitis of left lower limb; N18.30 Chronic kidney disease, stage 3 unspecified; R60.0 Localized edema; R29.6 Repeated falls

== ENCOUNTER 2024-03-25 12:22 | Observation (INO) ==
[2024-03-25 12:50] LABS: ABG O2 HGB 89.9 % (95-100); BEecf 4.9 (-2.0-3.0); COHb 2.4 (0.5-1.5); HCO3 28.1 (21-28); MetHb 1.4 (0-1.5); TCO2 29.2 (19-24); sO2 90.6 % (94-98); tHb 14.8 g/dl (11.7-17.4)
--- NOTE | 2024-03-25 12:59 | ED.PDOC ---
General ED Provider: Dr. PETRONA BONILLA MD Chief Complaint: Fever Stated Complaint: Patient history of hypertension, with arthritis, lymphedema and cellulitis both lower extremities complains of having a productive cough with sputum the past several days associated with fever and dyspnea. Patient denies chest pain chills, arthralgia. Time Seen by Provider: 03/25/24 12:50 Mode of Arrival: Walk-In Information Source: Patient Primary Care Provider: VIBHA LEMONS MD Nursing and Triage Documentation Reviewed and Agree: Yes What is Opioid Naive?: *Opioid Naive implies the patient is not already taking opioids or not chronically receiving opioids on a daily basis. *PRN dosing is not "usually" associated with tolerance. *Patients are at higher risk of over-sedation and aspiration. What is Opioid Tolerant?: *Opioid Tolerance implies less than the expected response to an opioid. *Acquired tolerance is defined by the patient taking 60mg of oral morphine daily (or equianalgesic dose of another opioid) for 1 week or more. *Often associated with chronic pain. *May take more than usual dose to achieve desired pain control. Review of Systems Review Of Systems Constitutional: Reports Fever and Weakness Eyes: Reports No symptoms Ears, Nose, Mouth, Throat: Reports No symptoms Respiratory: Reports Cough and Shortness of Breath Cardiac: Reports No symptoms GI: Reports No symptoms : Reports No symptoms Skin: Reports No symptoms Neurological: Reports No symptoms Endocrine: Reports No symptoms Hematologic/Lymphatic: Reports No symptoms All Other Systems: Reviewed and Negative [facility] Medical History TIA (transient ischemic attack) G45.9 - Transient cerebral ischemic attack, unspecified (ICD-10) Chronic obstructive pulmonary disease J44.9 - Chronic obstructive pulmonary disease, unspecified (ICD-10) Knee bursitis M70.50 - Other bursitis of knee, unspecified knee (ICD-10) Shoulder pain M25.519 - Pain in unspecified shoulder (ICD-10) Family History FATHER Cancer Mother Heart problem Stroke BROTHER Cardiac abnormality Diabetes Kidney disease Social History Smoking and tobacco status: Never smoker Second hand smoke exposure: No Smoking risk assessment performed: No Alcohol intake: never Counseling given: No Substance use type: does not use Talia/congregational: OTHER Special talia needs: No Agree to transfusion: Yes Adopted: No Caregiver/support person: No Foster care: No Household members: spouse Housing: house Marital status: M Daycare: no daycare Number of children: 1 Number of grandchildren: 2 Highest education level completed: high school graduate service: No half-way: No Current occupational status: retired Current occupational exposures/hazards: No Pets and animals: No History of recent travel: No Sexually active: No Do you think of yourself as: straight/heterosexual Current gender identity: male Seatbelt use: always Drives intoxicated or rides with intoxicated lease purchase driver: No Water heater temperature set < 120 degrees: Yes Working smoke detector in home: Yes Fire extinguisher in home: Yes Carbon monoxide detector in home: No Firearms in home: Yes Firearms unloaded and locked: Yes Surgical History S/P tendon repair HISTORY OF TENDON REPAIR RIGHT ARM FROM A FALL Z98.89 - Other specified postprocedural states (ICD-10) History of right knee joint replacement Z96.651 - Presence of right artificial knee joint (ICD-10) Status post cholecystectomy 10-20 years ago Z90.49 - Acquired absence of other specified parts of digestive tract (ICD- 10) Physical Exam Physical Exam Appearance: Reports Ill-appearing Ill-appearing: None Pain Distress: None Eyes: Reports MOLLY, EOMI and Conjunctiva clear ENT: Reports Ears normal, Nose normal and Oropharynx normal Neck: Supple Respiratory: Reports Airway patent and Breath sounds diminished Cardiovascular: Reports RRR, Pulses normal and No rub GI/: Reports Soft, Nontender, No masses and Bowel sounds normal Musculoskeletal: Reports Normal strength, ROM intact and Other (Bilateral lymphedema both lower extremities with erythema ) Skin: Reports Warm Neurological: Reports Sensation intact Psychiatric: Reports Affect appropriate Physician Notification Case Discussed Physician Notified: Discussed with Dr. Victoriano Lemons at 1700 Time of Notification: 17:00 Comments: After reviewing all laboratory data including the venous Dopplers and the chest CT scan with recommendations to admit to hospital service Physician Notified: Discussed with hospitalist Gray Patterson at 1724 Time of Notification: 17:24 Comments: After review of all laboratory data CT scan findings will admit for observation to telemetry Critical Care Note Critical Care Note Total Critical Care Time (mins): 30 Course Course 03/25/24 13:13 03/25/24 13:13 Orders, Labs, Meds: Lab Review 03/25/24 03/25/24 03/25/24 12:46 13:13 15:04 WBC 10.72 H RBC 4.38 L Hgb 13.6 L Hct 41.8 L MCV 95.4 H MCH 31.1 H MCHC 32.5 RDW Coeff of Bill 13.3 Plt Count 177 Immature Gran % (Auto) 0.7 Neut % (Auto) 85.9 H Lymph % (Auto) 5.3 L Dubois % (Auto) 7.6 Eos % (Auto) 0.1 Baso % (Auto) 0.4 Neut # (Auto) 9.2 H Lymph # (Auto) 0.6 Dubois # (Auto) 0.8 Eos # (Auto) 0.0 Baso # (Auto) 0.0 Immature Gran # (Auto) 0.1 PT 12.7 H INR 1.23 APTT 30.4 Puncture Site [employer] Base Excess 4.9 H O2 Saturation 90.6 L ABG pH 7.50 H ABG pCO2 36.0 ABG pO2 54.0 L* ABG HCO3 28.1 H ABG Total CO2 29.2 H Javi Test + Hemoglobin 1.4 Oxyhemoglobin 89.9 L Carboxyhemoglobin 2.4 H Total Hemoglobin 14.8 O2 Delivery Device Ra FiO2 % 21.0 Sodium 137.4 Potassium 4.20 Chloride 101.4 Carbon Dioxide 31.3 H Anion Gap 8.90 BUN 31.9 H Creatinine 1.58 H Estimated GFR (MDRD) 42.00 BUN/Creatinine Ratio 20.18 Glucose 133.1 H Lactic Acid 1.23 Calcium 8.29 L Magnesium 1.92 Total Bilirubin 1.50 H AST 56.0 ALT 30.0 Alkaline Phosphatase 110.0 Troponin I 0.038 0.042 Total Protein 7.50 Albumin 3.68 Globulin 3.82 Albumin/Globulin Ratio 0.96 D-Dimer 2018.36 H Orders Category Date Time Status ABG DRAW REQUEST Stat CARDIO 03/25/24 12:39 Completed ABG DRAW REQUEST Stat CARDIO 03/25/24 13:00 Completed EKG-(ED ONLY) Stat CARDIO 03/25/24 13:53 Completed EKG-(ED ONLY) Stat CARDIO 03/25/24 14:11 Completed EKG-(ED ONLY) Stat CARDIO 03/25/24 14:57 Completed NEBULIZER TREATMENT Routine CARDIO 03/25/24 17:26 Ordered NEBULIZER TREATMENT Routine CARDIO 03/25/24 17:29 Ordered NEBULIZER TREATMENT Stat CARDIO 03/25/24 13:00 Completed OXYGEN Routine CARDIO 03/25/24 17:27 Ordered ACTIVITY .Early Mobilization for VTE Prevention CARE 03/25/24 17:25 Active INTAKE & OUTPUT Q8HR CARE 03/25/24 17:26 Active NPO REMINDER: IMAGING ONCE CARE 03/25/24 15:04 Active VITAL SIGNS Q4HR CARE 03/25/24 17:27 Active CARDIAC DIET DIETARY 03/25/24 Dinner Ordered ABG COOX Stat LAB 03/25/24 12:46 Completed ABG COOX Stat LAB 03/25/24 13:01 Ordered BLOOD CULTURE (ED ONLY) Stat LAB 03/25/24 12:40 Received CBC W/ AUTO DIFF DAILY@0600 LAB 03/26/24 06:00 Ordered CBC W/ AUTO DIFF DAILY@0600 LAB 03/27/24 06:00 Ordered CBC W/ AUTO DIFF Stat LAB 03/25/24 13:13 Completed CMP [COMPREHENSIVE METABOLIC PANEL] Stat LAB 03/25/24 13:13 Completed COMPREHENSIVE METABOLIC PANEL DAILY@0600 LAB 03/26/24 06:00 Ordered COMPREHENSIVE METABOLIC PANEL DAILY@0600 LAB 03/27/24 06:00 Ordered COVID [SARS COV-2 RNA RAPID BRENDA] Stat LAB 03/25/24 17:25 Received D-DIMER Stat LAB 03/25/24 13:13 Completed LACTIC ACID Stat LAB 03/25/24 13:13 Completed LEGIONELLA URINARY ANTIGEN Routine LAB 03/25/24 17:29 Uncollected MAGNESIUM Stat LAB 03/25/24 13:13 Completed MRSA SCREEN Routine LAB 03/25/24 17:29 Uncollected PROCALCITONIN Stat LAB 03/25/24 13:13 Received PT WITH INR Stat LAB 03/25/24 13:13 Completed PTT [PARTIAL THROMBOPLASTIN TIME] Stat LAB 03/25/24 13:13 Completed SPUTUM CULTURE Routine LAB 03/25/24 17:30 Uncollected STREP PNEUMO AG, URINE Routine LAB 03/25/24 17:29 Ordered TROPONIN I Stat LAB 03/25/24 13:13 Completed TROPONIN I Stat LAB 03/25/24 15:04 Completed URINALYSIS C & S IF INDICATED Stat LAB 03/25/24 16:19 Uncollected Acetaminophen [Tylenol] Meds 03/25/24 17:29 Ordered 500 mg PO Q6H PRN Acetaminophen [Tylenol] Meds 03/25/24 12:59 Discontinued 650 mg PO ONCE STA Albuterol Sulfate 0.083% Neb [Albuterol 0.083% Neb] Meds 03/25/24 17:29 Ordered 2.5 mg NEB RTQ4H PRN Azithromycin Inj [Zithromax] 500 mg Meds 03/25/24 18:00 Ordered 0.9 % Sodium Chloride [Sodium Chloride] 250 ml IV DAILY Ceftriaxone/D5w 1 gm Premix [Rocephin 1 gm/50 ml D5w] Meds 03/26/24 09:00 Ordered 1 gm in 50 ml IV DAILY Ceftriaxone/D5w 1 gm Premix [Rocephin 1 gm/50 ml D5w] Meds 03/25/24 13:01 Discontinued 1 gm in 50 ml IV ONCE Diltiazem HCl [Cardizem Inj] Meds 03/25/24 14:10 Discontinued 10 mg IVP ONCE STA Diltiazem HCl [Cardizem] 125 mg Meds 03/25/24 14:30 Active 0.9 % Sodium Chloride [Sodium Chloride 100Ml] 100 ml IV TITRATION Enoxaparin Sodium [Lovenox] Meds 03/26/24 09:00 Ordered 40 mg SUBCUT DAILY Ipratropium/Albuterol Neb [Duoneb] Meds 03/25/24 12:59 Discontinued 3 ml NEB ONCE STA Ipratropium/Albuterol Neb [Duoneb] Meds 03/25/24 18:00 Ordered 3 ml NEB RTQ4H Methylprednisolone Sod Succ/Pf [Solu-Medrol 40 mg] Meds 03/25/24 21:00 Ordered 40 mg IVP Q8HR Metoprolol Succinate [Toprol Xl] Meds 03/25/24 17:23 Stat 25 mg PO ONCE STA Ondansetron HCl/Pf [Zofran 4 mg/2 ml] Meds 03/25/24 17:29 Ordered 4 mg IVP Q6H PRN Sodium Chloride 0.9% [Sodium Chloride] 1,000 ml Meds 03/25/24 12:59 Discontinued IV BOLUS CHEST, 1V AP ONLY Stat RADS 03/25/24 12:59 Completed CTA CHEST PE PROTOCOL Stat RADS 03/25/24 15:04 Completed US VENOUS SCAN MARÍA LEGS [U/S VENOUS SCAN MARÍA LEGS] Stat RADS 03/25/24 13:02 Completed Medications Generic Name Dose Route Start Last Admin Trade Name Freq PRN Reason Stop Dose Admin Acetaminophen 500 mg 03/25/24 17:29 Acetaminophen 500 Mg Tablet PO Q6H PRN FEVER/PAIN Albuterol Sulfate 2.5 mg 03/25/24 17:29 Albuterol Sulfate 0.083% Vial.[facility] RTQ4H PRN Wheezing Albuterol/Ipratropium 3 ml 03/25/24 18:00 Ipratropium/Albuterol Vial.[facility] RTQ4H ANNA Enoxaparin Sodium 40 mg 03/26/24 09:00 Enoxaparin Sodium 40 Mg/0.4 Ml Syr SUBCUT DAILY [facility] Diltiazem HCl 125 mg/ Sodium 125 mls @ 5 mls/hr 03/25/24 14:30 03/25/24 15:13 Chloride IV 5 mg/hr TITRATION ANNA 5 mls/hr Titration Protocol 5 MG/HR CEFTRIAXONE/D5W 1 GM PREMIX 1 gm in 50 mls @ 100 mls/hr 03/26/24 09:00 Rocephin 1 Gm/50 Ml D5w IV 03/29/24 08:59 DAILY [facility] Azithromycin 500 mg/ Sodium 250 mls @ 250 mls/hr 03/25/24 18:00 Chloride IV 03/28/24 17:59 DAILY [facility] Methylprednisolone Sodium Succinate 40 mg 03/25/24 21:00 Methylprednisolone Sod Succ/Pf 40 Mg/Ml Vial IVP Q8HR ANNA Metoprolol Succinate 25 mg 03/25/24 17:23 Metoprolol Succinate 25 Mg Tab.Er.24h PO 03/25/24 17:24 ONCE STA Ondansetron HCl 4 mg 03/25/24 17:29 Ondansetron Hcl/Pf 4 Mg/2 Ml Sdv IVP Q6H PRN Nausea / Vomiting Discontinued Medications Generic Name Dose Route Start Last Admin Trade Name Freq PRN Reason Stop Dose Admin Acetaminophen 650 mg 03/25/24 12:59 03/25/24 13:19 Acetaminophen 325 Mg Tablet PO 03/25/24 13:00 650 mg ONCE STA Administration Albuterol/Ipratropium 3 ml 03/25/24 12:59 03/25/24 13:14 Ipratropium/Albuterol Vial.Neb NEB 03/25/24 13:00 3 ml ONCE STA Administration Diltiazem HCl 10 mg 03/25/24 14:10 03/25/24 14:17 Diltiazem Hcl Inj 25 Mg/5 Ml Vial IVP 03/25/24 14:11 10 mg ONCE STA Administration Sodium Chloride 1,000 mls @ 1,000 mls/hr 03/25/24 12:59 03/25/24 14:21 Sodium Chloride IV 03/25/24 13:58 Infused BOLUS ONE Infusion CEFTRIAXONE/D5W 1 GM PREMIX 1 gm in 50 mls @ 100 mls/hr 03/25/24 13:01 03/25/24 13:25 Rocephin 1 Gm/50 Ml D5w IV 03/25/24 13:30 100 mls/hr ONCE ONE Administration Vital Signs: Temp Pulse Resp BP Pulse Ox O2 Flow Rate 03/25/24 14:57 98.5 F 97 28 H 119/65 94 L 2 03/25/24 14:19 140 H 18 114/65 92 L 2 03/25/24 12:32 102.5 F H 104 H 25 H 163/73 H 87 L Discharge Plan Discharge Patient Disposition: PLACED OBSERVATION Discharge Problem: Acute dyspnea, Bilateral lower leg cellulitis, Paroxysmal atrial fibrillation Community acquired pneumonia Qualifiers: Laterality: right Lung location: lower lobe of lung Qualified Code(s): J18.9 - Pneumonia, unspecified organism Prescriptions: No Action naproxen 500 mg tablet 500 mg PO BID PRN (Reason: pain) Qty: 20 0RF metoprolol succinate [Toprol XL] 25 mg tablet extended release 24 hr 25 mg PO QDAY losartan-hydrochlorothiazide 100-25 mg tablet 1 tab PO QDAY Qty: 30 2RF Did you review [place] ACCOUNT RESOLUTION EXPERT for ALL controlled substances?: Not Applicable ED Provider: PETRONA BONILLA Condition: Stable Physician Progress Note: Patient for history of hypertension, bilateral lower extremity lymphedema cellulitis complains of having dyspnea and palpitations this morning. Patient also complains of a productive cough yellow sputum and fever over the past 3 to 4 days. Denies chest pain diaphoresis. Patient has a past medical history of 1 episode of atrial fibrillation patient is presently on no anticoagulation. 1302-EKG interpretation by myself consistent with normal sinus rhythm sinus arrhythmia rate of 98 with a right bundle branch block 1406 repeat EKG interpretation by myself consistent with atrial fibrillation with RVR rate of 155 right bundle branch block Patient replaced on sepsis protocol due to fever patient given a liter bolus 1 hour Portable chest x-ray interpretation by the radiologist shows no acute cardiopulmonary process. Patient administered Cardizem 5 mg IV and placed on Cardizem infusion of 10 mg an hour. 1457-monitoring specialist patient converted Cardizem infusion discontinued after atrial fibrillation converted to sinus rhythm, blood pressure 109/52 pulse of 77 1503- EKG consistent with normal sinus rhythm with PACs and PVCs on occasion there is a right bundle branch block noted. Patient given DuoNeb aerosol treatment after 2 sets of blood cultures patient ministered Rocephin 1 g IV piggyback. Venous Doppler of the bilateral lower extremity interpretation radiologist shows no evidence of DVT. Chest CT PE protocol interpretation per radiologist is consistent with no evidence of pulmonary probably embolism there is small layering left pleural effusion with small airway thickening in the left lower lobe and scattered areas of groundglass attenuation tree-in-bud nodular densities and a peribronchial thickening upper and middle lobes bilaterally most prominent left lower lobe consistent with multi focal pneumonia or bronchitis Differential diagnosis: 1) acute dyspnea 2) community-acquired pneumonia 3) bilateral lower extremity cellulitis 4) proximal atrial fibrillation discussed with hospitalist Gray Patterson at 1724 for observation with telemetry
[2024-03-25] MEDS: DUONEB NEB STA (13:14)
[2024-03-25 13:17] LABS: BASOPHILS % (AUTO) 0.4 % (0.0-3.0); EOSINOPHILS % (AUTO) 0.1 % (0.0-7.0); HEMATOCRIT 41.8 % (42.0-52.0); HEMOGLOBIN 13.6 g/dl (14.0-18.0); IMMATURE GRANULOCYTE # (AUTO) 0.1 (0.0-1.0); IMMATURE GRANULOCYTE % (AUTO) 0.7 % (0.0-5.0); LYMPHOCYTES # (AUTO) 0.6 K/uL (0.60-3.4); LYMPHOCYTES % (AUTO) 5.3 (10.0-50.0); MEAN CORPUSCULAR HEMOGLOBIN 31.1 pg (27.0-31.0); MEAN CORPUSCULAR HGB CONC 32.5 (31.8-35.4); MEAN CORPUSCULAR VOLUME 95.4 fl (80.0-94.0); MONOCYTES # (AUTO) 0.8 K/uL (0.4-2.0); MONOCYTES % (AUTO) 7.6 (0-10); NEUTROPHILS # (AUTO) 9.2 K/ul (2.0-6.9); NEUTROPHILS % (AUTO) 85.9 % (42.2-75.2); PLATELET COUNT 177 10^3/uL (140-440); RDW COEFFICIENT OF VARIATION 13.3 % (11.6-14.8); RED BLOOD COUNT 4.38 10^6/ul (4.70-6.10); WHITE BLOOD COUNT 10.72 K/ul (4.2-10.2)
[2024-03-25] MEDS: TYLENOL PO STA (13:19)
[2024-03-25] MEDS: SODIUM CHLORIDE 1,000 ML IV ONE (13:21)
[2024-03-25] MEDS: ROCEPHIN 1 GM/50 ML D5W 1 GM/50 ML BAG IV ONE (13:25)
[2024-03-25 13:30] LABS: ALBUMIN 3.68 g/dL (3.5-5.0); BILIRUBIN,TOTAL 1.5 mg/dL (0.2-1.3); BLOOD UREA NITROGEN 31.9 mg/dL (9-20); CALCIUM 8.29 mg/dL (8.4-10.2); CARBON DIOXIDE 31.3 mmol/L (22-30.0); CHLORIDE 101.4 mmol/L (98-107); CREATININE 1.58 mg/dL (0.60-1.10); GLUCOSE 133.1 mg/dL (74-106); MAGNESIUM 1.92 mg/dL (1.6-2.3); POTASSIUM 4.2 mmol/L (3.5-5.1); SODIUM 137.4 mmol/L (134.5-145); TOTAL PROTEIN 7.5 g/dL (6.3-8.2)
[2024-03-25 13:41] LABS: TROPONIN I 0.038 ng/ml (0.0000-0.120)
[2024-03-25 13:47] LABS: PARTIAL THROMBOPLASTIN TIME 30.4 SEC (23.9-40.0); PROTHROMBIN TIME 12.7 SEC (9.3-11.0)
--- NOTE | 2024-03-25 14:13 | DI ---
EXAM: CHEST RADIOGRAPH TECHNIQUE: Single frontal chest radiograph. COMPARISON: 01/24/2024 HISTORY: A cough, dyspnea. FINDINGS: The heart and mediastinum are normal. The lungs and pleural spaces are stable. No acute abnormality of the bones or soft tissues is identified. IMPRESSION: No evidence of acute disease.
[2024-03-25] MEDS ORDERED: CARDIZEM INJ ONE (14:14)
[2024-03-25] MEDS: CARDIZEM INJ IVP STA (14:17)
[2024-03-25] MEDS: CARDIZEM 125 MG in SODIUM CHLORIDE 100ML 100 ML IV SCH (14:24)
--- NOTE | 2024-03-25 15:05 | US ---
EXAM: BILATERAL LOWER EXTREMITY DEEP VENOUS ULTRASOUND WITH DOPPLER IMAGING HISTORY: Pain and swelling. TECHNIQUE: Andrade-scale ultrasound with compression maneuvers and color and spectral Doppler ultrasound at rest and with augmentation of the veins was performed. Images were obtained and stored in a [facility] anent archive. COMPARISON: None FINDINGS: RIGHT LOWER EXTREMITY: Common Femoral Vein: Normal compression. Normal flow on color Doppler images. Normal response to augm entation. Deep Femoral Vein: Normal compression. Normal flow on color Doppler images. Normal response to augmen tation. Femoral Vein: Normal compression. Normal flow on color Doppler images. Normal response to augmentatio n. Popliteal Vein: Normal compression. Normal flow on color Doppler images. Normal response to augmentat ion. Peroneal Vein: Normal compression. Normal flow on color Doppler images. Posterior Tibial Vein: Normal compression. Normal flow on color Doppler images. Anterior Tibial Vein: Normal compression. Normal flow on color Doppler images. Greater Saphenous Vein (Superficial): Normal compression. Normal flow on color Doppler images. LEFT LOWER EXTREMITY: Common Femoral Vein: Normal compression. Normal flow on color Doppler images. Normal response to augm entation. Deep Femoral Vein: Normal compression. Normal flow on color Doppler images. Normal response to augmen tation. Femoral Vein: Normal compression. Normal flow on color Doppler images. Normal response to augmentatio n. Popliteal Vein: Normal compression. Normal flow on color Doppler images. Normal response to augmentat ion. Peroneal Vein: Normal compression. Normal flow on color Doppler images. Posterior Tibial Vein: Normal compression. Normal flow on color Doppler images. Anterior Tibial Vein: Normal compression. Normal flow on color Doppler images. Greater Saphenous Vein (Superficial): Normal compression. Normal flow on color Doppler images. IMPRESSION: No deep venous thrombosis (DVT) in the bilateral lower extremities.
--- NOTE | 2024-03-25 16:55 | CT ---
EXAM: CTA THORAX. DATE: 03/25/2024 COMPARISON: Noncontrast chest CT performed 08/11/2021 HISTORY: Elevated D-dimer with increasing dyspnea. TECHNIQUE: A helical scan of the thorax was performed following intravenous contrast. MIP and 3-D re construction was provided. FINDINGS: The thoracic inlet and axillary regions are normal. There are subcentimeter mediastinal ly mph nodes. The caliber of the thoracic aorta and cardiac chambers are normal. The spleen upper live r have a uniform enhancement. Cholecystectomy. There are degenerative changes of the thoracic spine. No acute osseous abnormality. There is a small layering left pleural effusion with small airway thickening in the left lower lobe a nd scattered areas of ground-glass attenuation and small areas of consolidation, tree-in-bud nodular densities and peribronchial thickening in the upper lobes and lower lobes bilaterally, most prominent in the left lower lobe. There is a 0.6 cm right perifissural nodule on image 51 There is good enhancement of the pulmonary arteries. No intraluminal filling defects are observed ou t to the segmental pulmonary arterial divisions. IMPRESSION: No evidence of pulmonary thromboembolism. There is a small layering left pleural effusio n with small airway thickening in the left lower lobe and scattered areas of ground-glass attenuation , tree in bud nodular densities and peribronchial thickening in the upper and lower lobes bilaterally and most prominent in the left lower lobe. The findings are most compatible with a multifocal pneum onia and/or bronchitis1. Would suggest follow-up CT scan in 3 months to document stability or resolu tion. 0.6 cm right perifissural nodule, which could also be evaluated [address] scans are performed using dose optimization techniques as appropriate to the performed exam an d include at least one of the following: Automated exposure control, adjustment of the mA and/or kV according t o size, and the use of iterative reconstruction technique.
[2024-03-25] MEDS ORDERED: ALBUTEROL 0.083% NEB NEB PRN (17:29)
[2024-03-25] MEDS ORDERED: TYLENOL PO PRN (17:29)
[2024-03-25] MEDS ORDERED: ZOFRAN 4 MG/2 ML IVP PRN (17:29)
[2024-03-25 17:38] LABS: SARS COV-2 RNA RAPID NAAT NEGATIVE (NEGATIVE)
[2024-03-25] MEDS: TOPROL XL PO STA (18:31)
[2024-03-25] MEDS: ZITHROMAX 500 MG in SODIUM CHLORIDE 250 ML IV SCH ×2 (18:31→21:03)
[2024-03-25] MEDS: DUONEB NEB SCH (18:42)
[2024-03-25 19:58] VITALS: BMI 31.4
[2024-03-25] MEDS: TOPROL XL PO SCH (21:04)
[2024-03-25] MEDS: SOLU-MEDROL 40 MG IVP SCH (23:37)
[2024-03-26 01:54] LABS: BILIRUBIN,URINE Negative (NEGATIVE); CLARITY,URINE Clear (CLEAR); COLOR,URINE Yellow (YELLOW); GLUCOSE, URINE (UA) Negative (NEGATIVE); KETONES,URINE Negative (NEGATIVE); LEUKOCYTE ESTERASE ,URINE Negative (NEGATIVE); NITRITE,URINE Negative (NEGATIVE); PH,URINE 5.5 (5-9); PROTEIN,URINE 2+ (NEGATIVE); URINE, BLOOD Negative (NEGATIVE)
[2024-03-26 01:57] LABS: MUCUS,URINE TRACE (NOT PRESENT); SQUAMOUS EPITHELIAL CELL,UR 0-2 (0-5); URINE RBC, MICROSCOPIC 0-2 (0-2)
[2024-03-26 06:08] LABS: BASOPHILS % (AUTO) 0.1 % (0.0-3.0); HEMATOCRIT 40.5 % (42.0-52.0); HEMOGLOBIN 12.8 g/dl (14.0-18.0); IMMATURE GRANULOCYTE # (AUTO) 0.1 (0.0-1.0); IMMATURE GRANULOCYTE % (AUTO) 0.6 % (0.0-5.0); LYMPHOCYTES # (AUTO) 0.5 K/uL (0.60-3.4); LYMPHOCYTES % (AUTO) 5.2 (10.0-50.0); MEAN CORPUSCULAR HEMOGLOBIN 30.8 pg (27.0-31.0); MEAN CORPUSCULAR HGB CONC 31.6 (31.8-35.4); MEAN CORPUSCULAR VOLUME 97.6 fl (80.0-94.0); MONOCYTES # (AUTO) 0.1 K/uL (0.4-2.0); MONOCYTES % (AUTO) 1.5 (0-10); NEUTROPHILS # (AUTO) 8.2 K/ul (2.0-6.9); NEUTROPHILS % (AUTO) 92.6 % (42.2-75.2); PLATELET COUNT 160 10^3/uL (140-440); RDW COEFFICIENT OF VARIATION 13.4 % (11.6-14.8); RED BLOOD COUNT 4.15 10^6/ul (4.70-6.10)
[2024-03-26 06:22] LABS: ALANINE AMINOTRANSFERASE 28.9 U/L (0-50); ALBUMIN 3.32 g/dL (3.5-5.0); ALKALINE PHOSPHATASE 104.7 U/L (56-119); ASPARTATE AMINO TRANSFERASE 57.7 U/L (17-59); BILIRUBIN,TOTAL 0.9 mg/dL (0.2-1.3); BLOOD UREA NITROGEN 30.4 mg/dL (9-20); CALCIUM 7.79 mg/dL (8.4-10.2); CARBON DIOXIDE 25.5 mmol/L (22-30.0); CREATININE 1.14 mg/dL (0.60-1.10); GLUCOSE 157.4 mg/dL (74-106); POTASSIUM 4.22 mmol/L (3.5-5.1); TOTAL PROTEIN 7.03 g/dL (6.3-8.2)
[2024-03-26] MEDS: LOVENOX SUBCUT SCH (08:51)
[2024-03-26] MEDS: ROCEPHIN 1 GM/50 ML D5W 1 GM/50 ML BAG IV SCH (08:51)
--- NOTE | 2024-03-26 11:04 | PCM ---
Date of Service Date Seen by Provider: 03/26/24 Time Seen by Provider: 08:45 Admit Day/Time Admission Date: 03/25/24 Reason for Admission Chief Complaint: ACUTE DYSPNEA; PNA; AFIB; EXT SWELLING Hospital Provider Hospital Provider: IGNACIO FELICIANO, [facility] [place] Primary Care Physician Primary Care Physician: VIBHA GODDARD MD History of Present Illness History of Present Illness: 83 yo male presented to the ER with fever, cough, and shortness of breath. Patient states that he has not been feeling well since the end of last week. Went to see PCP yesterday and was sent to ER due to 103 fever. He was found to have extensive pneumonia in both lungs. He was not requiring oxygen at that time. In ER, patient went into Afib RVR. He was given cardizem and then placed on a gtt. Converted to NSR and taken off the gtt. At this time, patient states he is feeling much better however he is having to take short breaks during conversation due to dyspnea. He was admitted to med/surg observation. Case Discussed With Case Discussed With: Patient's case was discussed with the ER Physicians, Dr. Yan. [facility] Medical History TIA (transient ischemic attack) G45.9 - Transient cerebral ischemic attack, unspecified (ICD-10) Chronic obstructive pulmonary disease J44.9 - Chronic obstructive pulmonary disease, unspecified (ICD-10) Knee bursitis M70.50 - Other bursitis of knee, unspecified knee (ICD-10) Shoulder pain M25.519 - Pain in unspecified shoulder (ICD-10) Surgical History S/P tendon repair HISTORY OF TENDON REPAIR RIGHT ARM FROM A FALL Z98.89 - Other specified postprocedural states (ICD-10) History of right knee joint replacement Z96.651 - Presence of right artificial knee joint (ICD-10) Status post cholecystectomy 10-20 years ago Z90.49 - Acquired absence of other specified parts of digestive tract (ICD- 10) Family History FATHER Cancer Mother Heart problem Stroke BROTHER Cardiac abnormality Diabetes Kidney disease Social History Smoking and tobacco status: Never smoker Second hand smoke exposure: No Smoking risk assessment performed: No Alcohol intake: never Counseling given: No Substance use type: does not use Talia/mosque: OTHER Special talia needs: No Agree to transfusion: Yes Adopted: No Caregiver/support person: No Foster care: No Household members: spouse Housing: house Marital status: M Daycare: no daycare Number of children: 1 Number of grandchildren: 2 Highest education level completed: high school graduate service: No MCFP: No Current occupational status: retired Current occupational exposures/hazards: No Pets and animals: No History of recent travel: No Sexually active: No Do you think of yourself as: straight/heterosexual Current gender identity: male Seatbelt use: always Drives intoxicated or rides with intoxicated home delivery driver: No Water heater temperature set < 120 degrees: Yes Working smoke detector in home: Yes Fire extinguisher in home: Yes Carbon monoxide detector in home: No Firearms in home: Yes Firearms unloaded and locked: Yes Allergies Allergies Allergy/AdvReac Type Severity Reaction Status Date / Time tramadol Allergy Mild Itching Verified 03/25/24 12:32 Current Medications Home Medications losartan 100 mg-hydrochlorothiazide 25 mg tablet 1 tab PO QDAY #30 tabs 10/09/23 [Rx Confirmed 03/25/24 Last Taken Unknown] naproxen 500 mg tablet 500 mg PO BID PRN pain #20 tabs 01/24/24 [Rx Confirmed 03/25/24 Last Taken Unknown] metoprolol succinate 25 mg tablet,extended release 24 hr (Toprol XL) 25 mg PO QDAY 01/31/24 [History Confirmed 03/25/24 Last Taken Unknown] Home Acetaminophen (Acetaminophen 500 Mg Tablet) 500 mg PO Q6H PRN PRN Reason: FEVER/PAIN Albuterol Sulfate (Albuterol Sulfate 0.083% Vial.Neb) 2.5 mg NEB RTQ4H PRN PRN Reason: Wheezing Albuterol/Ipratropium (Ipratropium/Albuterol Vial.Neb) 3 ml NEB RTQ4H ANNA Last Admin: 03/26/24 10:24 Dose: 3 ml Enoxaparin Sodium (Enoxaparin Sodium 40 Mg/0.4 Ml Syr) 40 mg SUBCUT DAILY ANNA Last Admin: 03/26/24 08:51 Dose: 40 mg Diltiazem HCl 125 mg/ Sodium (Chloride) 125 mls @ 5 mls/hr IV TITRATION ANNA; Protocol Last Titration: 03/25/24 15:43 Dose: Infused CEFTRIAXONE/D5W 1 GM PREMIX (Rocephin 1 Gm/50 Ml D5w) 1 gm in 50 mls @ 100 mls/hr IV DAILY ANNA Stop: 03/29/24 08:59 Last Admin: 03/26/24 08:51 Dose: 100 mls/hr Azithromycin 500 mg/ Sodium (Chloride) 250 mls @ 250 mls/hr IV BEDTIME ANNA Stop: 03/28/24 20:59 Methylprednisolone Sodium Succinate (Methylprednisolone Sod Succ/Pf 40 Mg/Ml Vial) 40 mg IVP Q8HR ANNA Last Admin: 03/26/24 06:05 Dose: 40 mg Metoprolol Succinate (Metoprolol Succinate 25 Mg Tab.Er.24h) 25 mg PO BID ANNA Last Admin: 03/26/24 08:51 Dose: 25 mg Ondansetron HCl (Ondansetron Hcl/Pf 4 Mg/2 Ml Sdv) 4 mg IVP Q6H PRN PRN Reason: Nausea / Vomiting Discontinued Medications Acetaminophen (Acetaminophen 325 Mg Tablet) 650 mg PO ONCE STA Stop: 03/25/24 13:00 Last Admin: 03/25/24 13:19 Dose: 650 mg Albuterol/Ipratropium (Ipratropium/Albuterol Vial.Neb) 3 ml NEB ONCE STA Stop: 03/25/24 13:00 Last Admin: 03/25/24 13:14 Dose: 3 ml Diltiazem HCl (Diltiazem Hcl Inj 25 Mg/5 Ml Vial) 10 mg IVP ONCE STA Stop: 03/25/24 14:11 Last Admin: 03/25/24 14:17 Dose: 10 mg Sodium Chloride (Sodium Chloride) 1,000 mls @ 1,000 mls/hr IV BOLUS ONE Stop: 03/25/24 13:58 Last Infusion: 03/25/24 14:21 Dose: Infused CEFTRIAXONE/D5W 1 GM PREMIX (Rocephin 1 Gm/50 Ml D5w) 1 gm in 50 mls @ 100 mls/hr IV ONCE ONE Stop: 06/04/24 13:30 Last Admin: 03/25/24 13:25 Dose: 100 mls/hr Azithromycin 500 mg/ Sodium (Chloride) 250 mls @ 250 mls/hr IV DAILY ANNA Stop: 03/28/24 17:59 Last Admin: 03/25/24 18:31 Dose: 250 mls/hr Azithromycin 500 mg/ Sodium (Chloride) 250 mls @ 250 mls/hr IV Q24H ANNA Stop: 03/28/24 17:59 Last Admin: 03/25/24 21:03 Dose: Not Given Metoprolol Succinate (Metoprolol Succinate 25 Mg Tab.Er.24h) 25 mg PO ONCE STA Stop: 03/25/24 17:24 Last Admin: 03/25/24 18:31 Dose: 25 mg Opioid Naive vs. Tolerant Does Patient Take Opioids?: No Is Patient Opioid Naive?: Yes What is Opioid Naive?: *Opioid Naive implies the patient is not already taking opioids or not chronically receiving opioids on a daily basis. *PRN dosing is not "usually" associated with tolerance. *Patients are at higher risk of over-sedation and aspiration. Is Patient Opioid Tolerant?: No What is Opioid Tolerant?: *Opioid Tolerance implies less than the expected response to an opioid. *Acquired tolerance is defined by the patient taking 60mg of oral morphine daily (or equianalgesic dose of another opioid) for 1 week or more. *Often associated with chronic pain. *May take more than usual dose to achieve desired pain control. Review of Systems Constitutional: Reports Fever and Weakness Head: Reports Normocephalic Eyes: Reports No symptoms Ears: Reports No symptoms Nose: Reports No symptoms Mouth: Reports No symptoms Throat: Reports No symptoms Cardiovascular: Reports No symptoms Respiratory: Reports Cough and Shortness of air Gastrointestinal: Reports No symptoms Genitourinary: Reports No Symptoms Musculoskeletal: Reports No symptoms Endocrine: Reports No symptoms Hematology: Reports No symptoms Immunology: Reports No symptoms Neurological: Reports No symptoms Psychiatric: Reports No symptoms Physical examination Most Recent Vital Signs: Most Recent Vital Signs Temperature 97.6 F 03/26/24 09:50 Temperature Source Temporal Artery Scan 03/26/24 09:50 Temperature Source Oral 03/25/24 14:57 Pulse Rate 89 03/26/24 09:50 Respiratory Rate 15 03/26/24 09:50 Blood Pressure 101/54 L 03/26/24 09:50 Blood Pressure Mean 69 03/26/24 09:50 Blood Pressure Left Arm 142/85 03/25/24 19:48 Blood Pressure Location Left Arm 03/26/24 09:50 Blood Pressure Position Sitting 03/26/24 09:50 O2 Sat by Pulse Oximetry 93 L 03/26/24 10:00 Oxygen Delivery Method Room Air 03/26/24 10:00 Oxygen Flow Rate 4 03/25/24 20:35 Height 5 ft 8 in 03/25/24 19:48 Weight 207 lb 03/25/24 19:48 Telemetry Type Remote Telemetry 03/26/24 07:00 Telemetry Monitoring Continues 03/26/24 07:00 Telemetry Heart Rate 83 03/26/24 07:00 Telemetry SPO2 94 03/16/17 19:00 EKG PA Interval 0.23 H 03/26/24 07:00 EKG QRS Interval 0.11 H 03/26/24 07:00 Telemetry Strip Reading sr w. 1st degree avb and bbb 03/26/24 07:00 Appearance: Positive No Apparent Distress and Alert and Oriented x3 Skin: Positive Warm and Good Turgor HEENT: Positive Normocephalic and PERRLA Neck: Positive Supple and Midline Trachea Chest/Lungs: Positive Symmetrical With Equal Breath Sounds, Rhonci, Wheezes and Other (diminished) Heart: Positive RRR and Pulses Normal GI/: Positive Soft, Nontender, Bowel Sounds Normal and No Distention Musculoskeletal: Positive Not Examined Extremities: Positive Edema (nonpitting +2) and Other (vascular discoloration to BLE, no open areas noted) Neurological: Positive Sensation Intact, Motor intact, Alert and Oriented Labs This Visit Labs This Visit: Labs This Visit 03/25/24 03/25/24 03/25/24 12:46 13:13 15:04 WBC 10.72 H RBC 4.38 L Hgb 13.6 L Hct 41.8 L MCV 95.4 H MCH 31.1 H MCHC 32.5 RDW Coeff of Bill 13.3 Plt Count 177 Immature Gran % (Auto) 0.7 Neut % (Auto) 85.9 H Lymph % (Auto) 5.3 L Teller % (Auto) 7.6 Eos % (Auto) 0.1 Baso % (Auto) 0.4 Neut # (Auto) 9.2 H Lymph # (Auto) 0.6 Teller # (Auto) 0.8 Eos # (Auto) 0.0 Baso # (Auto) 0.0 Immature Gran # (Auto) 0.1 PT 12.7 H INR 1.23 APTT 30.4 Puncture Site Rrad Base Excess 4.9 H O2 Saturation 90.6 L ABG pH 7.50 H ABG pCO2 36.0 ABG pO2 54.0 L* ABG HCO3 28.1 H ABG Total CO2 29.2 H Javi Test + Hemoglobin 1.4 Oxyhemoglobin 89.9 L Carboxyhemoglobin 2.4 H Total Hemoglobin 14.8 O2 Delivery Device Ra FiO2 % 21.0 Sodium 137.4 Potassium 4.20 Chloride 101.4 Carbon Dioxide 31.3 H Anion Gap 8.90 BUN 31.9 H Creatinine 1.58 H Estimated GFR (MDRD) 42.00 BUN/Creatinine Ratio 20.18 Glucose 133.1 H Lactic Acid 1.23 Calcium 8.29 L Magnesium 1.92 Total Bilirubin 1.50 H AST 56.0 ALT 30.0 Alkaline Phosphatase 110.0 Troponin I 0.038 0.042 Total Protein 7.50 Albumin 3.68 Globulin 3.82 Albumin/Globulin Ratio 0.96 Procalcitonin 0.37 H D-Dimer 2018.36 H Urine Color Urine Clarity Urine pH Ur Specific Austin Urine Protein Urine Glucose (UA) Urine Ketones Urine Blood Urine Nitrite Urine Bilirubin Urine Urobilinogen Ur Leukocyte Esterase Urine Microscopic RBC Ur Squamous Epith Cells Urine Mucus SARS CoV-2 RNA Rapid BRENDA 03/25/24 03/25/24 03/26/24 16:19 17:25 06:00 WBC 8.80 RBC 4.15 L Hgb 12.8 L Hct 40.5 L MCV 97.6 H MCH 30.8 MCHC 31.6 L RDW Coeff of Bill 13.4 Plt Count 160 Immature Gran % (Auto) 0.6 Neut % (Auto) 92.6 H Lymph % (Auto) 5.2 L Teller % (Auto) 1.5 Eos % (Auto) 0.0 Baso % (Auto) 0.1 Neut # (Auto) 8.2 H Lymph # (Auto) 0.5 L Teller # (Auto) 0.1 L Eos # (Auto) 0.0 Baso # (Auto) 0.0 Immature Gran # (Auto) 0.1 PT INR APTT Puncture Site Base Excess O2 Saturation ABG pH ABG pCO2 ABG pO2 ABG HCO3 ABG Total CO2 Javi Test Hemoglobin Oxyhemoglobin Carboxyhemoglobin Total Hemoglobin O2 Delivery Device FiO2 % Sodium 138.0 Potassium 4.22 Chloride 106.0 Carbon Dioxide 25.5 Anion Gap 10.72 BUN 30.4 H Creatinine 1.14 H Estimated GFR (MDRD) 61.00 BUN/Creatinine Ratio 26.66 Glucose 157.4 H Lactic Acid Calcium 7.79 L Magnesium Total Bilirubin 0.90 AST 57.7 ALT 28.9 Alkaline Phosphatase 104.7 Troponin I Total Protein 7.03 Albumin 3.32 L Globulin 3.71 Albumin/Globulin Ratio 0.89 Procalcitonin D-Dimer Urine Color Yellow Urine Clarity Clear Urine pH 5.5 Ur Specific Austin 1.020 Urine Protein 2+ H Urine Glucose (UA) Negative Urine Ketones Negative Urine Blood Negative Urine Nitrite Negative Urine Bilirubin Negative Urine Urobilinogen 1.0 H Ur Leukocyte Esterase Negative Urine Microscopic RBC 0-2 Ur Squamous Epith Cells 0-2 Urine Mucus Trace SARS CoV-2 RNA Rapid BRENDA Negative Microbiology This Visit 03/25/24 21:25 Leg - Left Wound Culture - Preliminary Imaging Imaging: EXAM: CTA THORAX. DATE: 03/25/2024 COMPARISON: Noncontrast chest CT performed 08/11/2021 HISTORY: Elevated D-dimer with increasing dyspnea. TECHNIQUE: A helical scan of the thorax was performed following intravenous contrast. MIP and 3-D reconstruction was provided. FINDINGS: The thoracic inlet and axillary regions are normal. There are subcentimeter mediastinal lymph nodes. The caliber of the thoracic aorta and cardiac chambers are normal. The spleen upper liver have a uniform enhancement. Cholecystectomy. There are degenerative changes of the thoracic spine. No acute osseous abnormality. There is a small layering left pleural effusion with small airway thickening in the left lower lobe and scattered areas of ground-glass attenuation and small areas of consolidation, tree-in-bud nodular densities and peribronchial thickening in the upper lobes and lower lobes bilaterally, most prominent in the left lower lobe. There is a 0.6 cm right perifissural nodule on image 51 There is good enhancement of the pulmonary arteries. No intraluminal filling defects are observed out to the segmental pulmonary arterial divisions. IMPRESSION: No evidence of pulmonary thromboembolism. There is a small layering left pleural effusion with small airway thickening in the left lower lobe and scattered areas of ground-glass attenuation, tree in bud nodular densities and peribronchial thickening in the upper and lower lobes bilaterally and most prominent in the left lower lobe. The findings are most compatible with a multifocal pneumonia and/or bronchitis1. Would suggest follow-up CT scan in 3 months to document stability or resolution. 0.6 cm right perifissural nodule, which could also be evaluated 3 months. Review Statement Review Statement: I have independently reviewed and interpreted the labs/EKGs/imaging that were ordered by the ER provider. I have reviewed all outside records that are available currently in our EMR including imaging/notes/labs from previous visits. Plan Plan: 1. Sepsis in setting of CAP - met due to tachycardia and fever, blood cultures pending 2. CAP - azith and rocephin, steroids, nebs 3. Atrial Fibrillation - in RVR in ER, resolved with cardizem, gave PO dose of toprol XL on admission, increased to BID at this time - will adjust as needed 4. Peripheral Vascular Disease to BLE - does not appear infected at this time, monitor DVT Prophylaxis: Up ad dana Time Spent: Greater than 80 minutes spent with patient, 50% of the time spent with this patient was devoted to counseling and coordination of care. [facility] Plannin minutes spent discussing advance care planning. Disposition: Admit to: Med/surg Observation DNR Discussed Plan of Care with Dr. Jun Goddard. Medications Medication Orders: Medications Ordered Category Date Time Status Acetaminophen [Tylenol] Meds 03/25/24 17:29 Active 500 mg PO Q6H PRN Albuterol Sulfate 0.083% Neb [Albuterol 0.083% Neb] Meds 03/25/24 17:29 Active 2.5 mg NEB RTQ4H PRN Azithromycin Inj [Zithromax] 500 mg Meds 03/26/24 21:00 Active 0.9 % Sodium Chloride [Sodium Chloride] 250 ml IV BEDTIME Ceftriaxone/D5w 1 gm Premix [Rocephin 1 gm/50 ml D5w] Meds 03/26/24 09:00 Active 1 gm in 50 ml IV DAILY Diltiazem HCl [Cardizem] 125 mg Meds 03/25/24 14:30 Active 0.9 % Sodium Chloride [Sodium Chloride 100Ml] 100 ml IV TITRATION Enoxaparin Sodium [Lovenox] Meds 03/26/24 09:00 Active 40 mg SUBCUT DAILY Ipratropium/Albuterol Neb [Duoneb] Meds 03/25/24 18:00 Active 3 ml NEB RTQ4H Methylprednisolone Sod Succ/Pf [Solu-Medrol 40 mg] Meds 03/25/24 21:00 Active 40 mg IVP Q8HR Metoprolol Succinate [Toprol Xl] Meds 03/25/24 21:00 Active 25 mg PO BID Ondansetron HCl/Pf [Zofran 4 mg/2 ml] Meds 03/25/24 17:29 Active 4 mg IVP Q6H PRN
[2024-03-26] MEDS: ZITHROMAX 500 MG in SODIUM CHLORIDE 250 ML IV SCH (20:03)
[2024-03-26 20:51] VITALS: TEMP 97.6
[2024-03-27 05:07] LABS: BASOPHILS % (AUTO) 0.1 % (0.0-3.0); HEMATOCRIT 40.2 % (42.0-52.0); IMMATURE GRANULOCYTE # (AUTO) 0.1 (0.0-1.0); IMMATURE GRANULOCYTE % (AUTO) 0.6 % (0.0-5.0); LYMPHOCYTES # (AUTO) 0.4 K/uL (0.60-3.4); LYMPHOCYTES % (AUTO) 3.2 (10.0-50.0); MEAN CORPUSCULAR HEMOGLOBIN 30.8 pg (27.0-31.0); MEAN CORPUSCULAR HGB CONC 32.3 (31.8-35.4); MEAN CORPUSCULAR VOLUME 95.3 fl (80.0-94.0); MONOCYTES # (AUTO) 0.4 K/uL (0.4-2.0); MONOCYTES % (AUTO) 2.9 (0-10); NEUTROPHILS % (AUTO) 93.2 % (42.2-75.2); PLATELET COUNT 176 10^3/uL (140-440); RDW COEFFICIENT OF VARIATION 13.3 % (11.6-14.8); RED BLOOD COUNT 4.22 10^6/ul (4.70-6.10); WHITE BLOOD COUNT 12.89 K/ul (4.2-10.2)
[2024-03-27 05:19] LABS: ALANINE AMINOTRANSFERASE 30.7 U/L (0-50); ALBUMIN 3.12 g/dL (3.5-5.0); ASPARTATE AMINO TRANSFERASE 40.4 U/L (17-59); BILIRUBIN,TOTAL 0.43 mg/dL (0.2-1.3); BLOOD UREA NITROGEN 39.7 mg/dL (9-20); CALCIUM 8.2 mg/dL (8.4-10.2); CARBON DIOXIDE 27.4 mmol/L (22-30.0); CHLORIDE 107.2 mmol/L (98-107); CREATININE 1.15 mg/dL (0.60-1.10); GLUCOSE 168.6 mg/dL (74-106); POTASSIUM 4.07 mmol/L (3.5-5.1); SODIUM 140.7 mmol/L (134.5-145); TOTAL PROTEIN 6.62 g/dL (6.3-8.2)
[2024-03-27 06:05] VITALS: BP 139/73; PULSE 77; RESP 16
--- NOTE | 2024-03-27 09:40 | DCSUM ---
Admission Date Admission Date: 03/25/24 Discharge Date Discharge Date: 03/27/24 Admission Diagnosis Admission Diagnosis: 1. Sepsis in setting of CAP 2. CAP 3. Atrial Fibrillation 4. Peripheral Vascular Disease to BLE Discharge Diagnosis Discharge Diagnosis: 1. Sepsis in setting of CAP - Ruled out 2. CAP - Improving 3. Atrial Fibrillation - Stable 4. Cellulitis to L lower leg - Positive wound culture Hospital Provider Hospital Provider: IGNACIO FELICIANO, [facility] [place] Primary Care Physician: VIBHA GODDARD MD Summary of History and Physical Summary of History and Physical: 83 yo male presented to the ER with fever, cough, and shortness of breath. Patient states that he has not been feeling well since the end of last week. Went to see PCP yesterday and was sent to ER due to 103 fever. He was found to have extensive pneumonia in both lungs. He was not requiring oxygen at that time. In ER, patient went into Afib RVR. He was given cardizem and then placed on a gtt. Converted to NSR and taken off the gtt. At this time, patient states he is feeling much better however he is having to take short breaks during conversation due to dyspnea. He was admitted to med/surg observation. Hospital Course Subjective: During stay, patient was treated for community acquired pneumonia with rocephin and azith as well as steroids and nebs. MRSA, strep pneumo, and legionella ordered. MRSA positive. 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 No active lesions to R leg. 1-2 active lesions on L leg. Wound culture collected and showing growth of gram positive cocci. Follows with wound care and has appointment today that he plans to reschedule for early next week. Has not required oxygen during stay. Lung sounds improved and is not SOA during conversation today. Afib RVR resolved in ER. Remained sinus rhythm. Increased metoprolol to BID and has tolerated well. Discussed patient would benefit from additional antibiotics due to infected leg wound. Patient does not wish to stay any longer due to his being in the group home and needing to check on her. Sent RX for antibiotics to cover wound and pneumonia. Follow-up with PCP early next week. Appearance: Pleasant, No Apparent Distress and Alert HEENT: MMM, Supple and No JVD CVS: No Murmur Abdomen: Soft, Non-Tender and No Distention Respiratory: No Dyspnea Extremities: Other (nonstick dressing adhered to wound to L leg) Vital Signs: Most Recent Vital Signs Temperature 97.6 F 03/27/24 06:00 Temperature Source Temporal Artery Scan 03/27/24 06:00 Temperature Source Oral 03/25/24 14:57 Pulse Rate 77 03/27/24 06:00 Respiratory Rate 16 03/27/24 06:00 Blood Pressure 139/73 03/27/24 06:00 Blood Pressure Mean 95 03/27/24 06:00 Blood Pressure Left Arm 142/85 03/25/24 19:48 Blood Pressure Location Right Arm 03/27/24 06:00 Blood Pressure Position Sitting 03/27/24 06:00 O2 Sat by Pulse Oximetry 94 L 03/27/24 06:00 Oxygen Delivery Method Room Air 03/27/24 09:36 Oxygen Flow Rate 2 03/26/24 08:00 Height 5 ft 8 in 03/25/24 19:48 Weight 207 lb 03/25/24 19:48 Telemetry Type Remote Telemetry 03/27/24 07:00 Telemetry Monitoring Continues 03/27/24 07:00 Telemetry Heart Rate 83 03/27/24 07:00 Telemetry SPO2 94 03/16/17 19:00 EKG CA Interval 0.14 03/27/24 07:00 EKG QRS Interval 0.10 03/27/24 07:00 Telemetry Strip Reading sr w/ pvcs 03/27/24 07:00 Imaging: EXAM: CTA THORAX. DATE: 03/25/2024 COMPARISON: Noncontrast chest CT performed 08/11/2021 HISTORY: Elevated D-dimer with increasing dyspnea. TECHNIQUE: A helical scan of the thorax was performed following intravenous contrast. MIP and 3-D reconstruction was provided. FINDINGS: The thoracic inlet and axillary regions are normal. There are subcentimeter mediastinal lymph nodes. The caliber of the thoracic aorta and cardiac chambers are normal. The spleen upper liver have a uniform enhancement. Cholecystectomy. There are degenerative changes of the thoracic spine. No acute osseous abnormality. There is a small layering left pleural effusion with small airway thickening in the left lower lobe and scattered areas of ground-glass attenuation and small areas of consolidation, tree-in-bud nodular densities and peribronchial thickening in the upper lobes and lower lobes bilaterally, most prominent in the left lower lobe. There is a 0.6 cm right perifissural nodule on image 51 There is good enhancement of the pulmonary arteries. No intraluminal filling defects are observed out to the segmental pulmonary arterial divisions. IMPRESSION: No evidence of pulmonary thromboembolism. There is a small layering left pleural effusion with small airway thickening in the left lower lobe and scattered areas of ground-glass attenuation, tree in bud nodular densities and peribronchial thickening in the upper and lower lobes bilaterally and most prominent in the left lower lobe. The findings are most compatible with a multifocal pneumonia and/or bronchitis1. Would suggest follow-up CT scan in 3 months to document stability or resolution. 0.6 cm right perifissural nodule, which could also be evaluated 3 months. Lab Results Last 24 Hours: 03/27/24 04:55 WBC 12.89 H RBC 4.22 L Hgb 13.0 L Hct 40.2 L MCV 95.3 H MCH 30.8 MCHC 32.3 RDW Coeff of Bill 13.3 Plt Count 176 Immature Gran % (Auto) 0.6 Neut % (Auto) 93.2 H Lymph % (Auto) 3.2 L Allen % (Auto) 2.9 Eos % (Auto) 0.0 Baso % (Auto) 0.1 Neut # (Auto) 12.0 H Lymph # (Auto) 0.4 L Allen # (Auto) 0.4 Eos # (Auto) 0.0 Baso # (Auto) 0.0 Immature Gran # (Auto) 0.1 Sodium 140.7 Potassium 4.07 Chloride 107.2 H Carbon Dioxide 27.4 Anion Gap 10.17 BUN 39.7 H Creatinine 1.15 H Estimated GFR (MDRD) 61.00 BUN/Creatinine Ratio 34.52 Glucose 168.6 H Calcium 8.20 L Total Bilirubin 0.43 AST 40.4 ALT 30.7 Alkaline Phosphatase 106.0 Total Protein 6.62 Albumin 3.12 L Globulin 3.50 Albumin/Globulin Ratio 0.89 Discharge Instructions Discharge Planning: Discharge Planning > 40 minutes If patient is discharged with left ventricular systolic dysfunction: NA Discharged with a beta saeed? [] If no, why not? [] Discharged with an tobi/arb? [] If no, why not? [] Diagnosis: Community Acquired Pneumonia Diet: Regular Activity: As tolerated Follow-up with Dr. Goddard on Sunday. Medications: Take your metoprolol twice a day Doxycycline (for leg wound) twice a day for 7 days Omnicef (for pneumonia) take twice a day for 5 days Prednisone take daily for 3 days Take over the counter probiotic or eat yogurt to prevent infection from antibiotic use. Discharge Medications: Medications at Discharge (Home Meds & RX) losartan 100 mg-hydrochlorothiazide 25 mg tablet 1 tab PO QDAY #30 tabs 10/09/23 naproxen 500 mg tablet 500 mg PO BID PRN pain #20 tabs 01/24/24 metoprolol succinate 25 mg tablet,extended release 24 hr (Toprol XL) 25 mg PO QDAY 01/31/24 Discharge Plan Discharge Discharge Orders: Discharge Patient (ONCE); Ordered 03/27/24 Ordered By: MIKEL ALCOCER Activity Restrictions/Additional Instructions: Diagnosis: Community Acquired Pneumonia Diet: Regular Activity: As tolerated Follow-up with Dr. Goddard on Sunday. Medications: Take your metoprolol twice a day Doxycycline (for leg wound) twice a day for 7 days Omnicef (for pneumonia) take twice a day for 5 days Prednisone take daily for 3 days Take over the counter probiotic or eat yogurt to prevent infection from antibiotic use. Instructions: Cellulitis (GEN), Community Acquired Pneumonia (GEN) Care Plan Goals: Problem: Infection Goal #1: No signs/symptoms of infection Instructions: Monitor for sign/symptoms of infection Monitor temperature Goal #2: White blood cell counts Within Normal Limits Instructions: Obtain labs per physician orders Patient Disposition: HOME SELF-CARE Prescriptions: New metoprolol succinate [Toprol XL] 25 mg Tablet Extended Release 24 Hr 25 mg PO BID Qty: 60 0RF cefdinir 300 mg capsule 300 mg PO BID 5 Days Qty: 10 0RF Rx Instructions: Start 03/28/24 doxycycline monohydrate 100 mg capsule 100 mg PO BID Qty: 14 0RF prednisone 10 mg tablet 10 mg PO DAILY 3 Days Qty: 3 0RF Rx Instructions: Start tomorrow Continued naproxen 500 mg tablet 500 mg PO BID PRN (Reason: pain) Qty: 20 0RF losartan-hydrochlorothiazide 100-25 mg tablet 1 tab PO QDAY Qty: 30 2RF Discontinued metoprolol succinate [Toprol XL] 25 mg tablet extended release 24 hr 25 mg PO QDAY Did you review [place] [employer] for ALL controlled substances?: No Discussed opioids are addictive and Narcan is available by prescription or from pharmacy.: No Condition: Stable Referrals: VIBHA GODDARD MD [Primary Care Provider] - 04/02/24 2:20 pm
[2024-03-27] MEDS ORDERED: DOXYCYCLINE HYCLATE PO ONE (10:30)
== END 2024-03-27 10:30 | disposition home or self-care (01) ==
LOC: ED 12:22 → MEDSURG B 12:22
PROVIDERS: ADMIT Hospitalist; ATTEND Nurse Practitioner Family
DX: R60.0 Localized edema; Z20.822 Contact with and (suspected) exposure to COVID-19; I73.9 Peripheral vascular disease, unspecified; I48.0 Paroxysmal atrial fibrillation; R06.02 Shortness of breath; J18.9 Pneumonia, unspecified organism; L03.116 Cellulitis of left lower limb; B95.62 Methicillin resistant Staphylococcus aureus infection as the cause of diseases classified elsewhere